=== PATIENT | female | born 1945 | race African-American/Black ===

== ENCOUNTER 2020-01-21 11:44 | Inpatient (IN) | payer MEDICARE, OTHER ==
[~2020-01-21] VITALS: Ht 165.1 cm; Wt 88.0 kg
[~2020-01-21 11:44] MED LIST: ASPI-482 PO; CALC-31 PO; CLON0.2T PO; CLOP75TA PO; ENAL20TA PO; HYDR12.58 PO; METF500T11 PO; METO100T7 PO; MULT-18 PO; SIMV40TA18 PO
[2020-01-21] MEDS ORDERED: ACETAMINOPHEN 500 MG TABLET PO ONE (12:30)
[2020-01-21 12:44] LABS: BASO % 0 % (0-3); EOS % 0 % (0-3); HEMATOCRIT 43.2 % (36.0-47.0); HEMOGLOBIN 14.3 g/dL (12.0-15.5); LYMPH # 1.1 x10^3/uL (1.0-4.8); LYMPH % 12 % (24-48); MEAN CORPUSCULAR HEMOGLOBIN 26 pg (25-35); MEAN CORPUSCULAR HGB CONC 33 g/dL (31-37); MEAN CORPUSCULAR VOLUME 78 fL (79-100); MONO # 0.7 x10^3/uL (0.0-1.1); MONO % 8 % (0-9); NEUT % 80 % (31-73); PLATELET COUNT 139 x10^3/uL (140-400); RED BLOOD COUNT 5.54 x10^6/uL (3.50-5.40); RED CELL DISTRIBUTION WIDTH 14.5 % (11.5-14.5); WHITE BLOOD COUNT 8.8 x10^3/uL (4.0-11.0)
--- NOTE | 2020-01-21 12:57 | RAD ---
CHEST AP ONLY History: Shortness of breath Comparison: None. Findings: Single view of the chest is submitted. There is patchy infiltrate of the right lung base, questionably very minimally of the left lung base. There is no pneumothorax. There is no obvious pleural fluid. Heart size is within normal limits given technique. There is cervical fusion hardware. There is degenerative change of the left shoulder. Impression: 1. There is right base infiltrate, also questionably minimally of the left base Electronically signed by: Calin Khoury MD (01/21/2020 12:53 PM) [id number]
[2020-01-21 13:10] LABS: ALBUMIN 3.4 g/dL (3.4-5.0); ALBUMIN/GLOBULIN RATIO 0.7 (1.0-1.7); CALCIUM 8.8 mg/dL (8.5-10.1); CREATININE 1.5 mg/dL (0.6-1.0); GFR 40.9; TOTAL BILIRUBIN 0.5 mg/dL (0.2-1.0)
[2020-01-21 13:11] LABS: INFLUENZA A PATIENT NEGATIVE (NEGATIVE); INFLUENZA B PATIENT NEGATIVE (NEGATIVE)
[2020-01-21 13:15] LABS: POTASSIUM 2.9 mmol/L (3.5-5.1)
[2020-01-21] MEDS ORDERED: POTASSIUM CHLORIDE 20 MEQ TABLET.ER. PO ONE (13:45)
[2020-01-21] MEDS ORDERED: AZITHRMYCN 500MG IVPB FOR OMNI 250 ML IV ONE (13:45)
[2020-01-21] MEDS ORDERED: cefTRIAXone IV Push 1 GM VIAL. IVP ONE (13:45)
--- NOTE | 2020-01-21 14:01 | PHYS DOC ---
Past Medical History Past Medical History: Diabetes-Type II, High Cholesterol, Hypertension Past Surgical History: Other Additional Past Surgical Histo: "NECK SURERY" Smoking Status: Never Smoker Alcohol Use: None Adult General Chief Complaint Chief Complaint: FEVER HPI HPI Patient is a 74 year old female presenting to the ED with a chief complaint of fever, cough and shortness of breath. Patient's was seen yesterday in the ER and was admitted to the hospital with bilateral pneumonia with hypoxia. is being tested for coronavirus infection. Patient states that her symptoms are not present for the last 1-1/2 weeks but got worse in the last 1 day. Patient denies being an active smoker. Review of Systems Review of Systems Patient does complain of fever, cough and shortness of breath. Patient denies nausea, vomiting, diarrhea, dysuria, chest pain, abdominal pain, headache. All other systems were reviewed and found to be within normal limits, except as documented in this note. Current Medications Current Medications Current Medications Medications (Trade) Dose Ordered Sig/Christiane Start Time Stop Time Status Last Admin Dose Admin Acetaminophen (Tylenol) 1,000 mg 1X ONCE 01/21/20 12:30 01/21/20 12:31 DC 01/21/20 12:28 1,000 MG Azithromycin 250 ml @ 250 mls/hr 1X ONCE 01/21/20 13:45 01/21/20 14:44 Ceftriaxone Sodium (Rocephin) 1 gm 1X ONCE 01/21/20 13:45 01/21/20 13:49 DC Potassium Chloride (Klor-Con) 40 meq 1X ONCE 01/21/20 13:45 01/21/20 13:49 DC Allergies Allergies Allergies Coded Allergies Type Severity Reaction Last Updated Verified No Known Drug Allergies 03/30/14 No Physical Exam Physical Exam Constitutional: Well developed, well nourished, no acute distress, non-toxic appearance. [] HENT: Normocephalic, atraumatic Eyes: EOMI, PERRL Neck: Normal range of motion Cardiovascular:Heart rate regular rhythm Lungs & Thorax: Rhonchi bilaterally Abdomen: Bowel sounds normal, soft, no tenderness Extremities: No tenderness, ROM intact Neurologic: Alert and oriented X 3 Current Patient Data Vital Signs Vital Signs Date Time Temp Pulse Resp B/P (MAP) Pulse Ox O2 Delivery O2 Flow Rate FiO2 01/21/20 12:00 102.0 90 22 192/84 (120) 93 Room Air 102.0 Lab Values Laboratory Tests Test 01/21/20 12:20 01/21/20 12:28 Influenza Type A Antigen Negative (NEGATIVE) Influenza Type B Antigen Negative (NEGATIVE) White Blood Count 8.8 x10^3/uL (4.0-11.0) Red Blood Count 5.54 x10^6/uL (3.50-5.40) H Hemoglobin 14.3 g/dL (12.0-15.5) Hematocrit 43.2 % (36.0-47.0) Mean Corpuscular Volume 78 fL (79-100) L Mean Corpuscular Hemoglobin 26 pg (25-35) Mean Corpuscular Hemoglobin Concent 33 g/dL (31-37) Red Cell Distribution Width 14.5 % (11.5-14.5) Platelet Count 139 x10^3/uL (140-400) L Neutrophils (%) (Auto) 80 % (31-73) H Lymphocytes (%) (Auto) 12 % (24-48) L Monocytes (%) (Auto) 8 % (0-9) Eosinophils (%) (Auto) 0 % (0-3) Basophils (%) (Auto) 0 % (0-3) Neutrophils # (Auto) 7.0 x10^3/uL (1.8-7.7) Lymphocytes # (Auto) 1.1 x10^3/uL (1.0-4.8) Monocytes # (Auto) 0.7 x10^3/uL (0.0-1.1) Eosinophils # (Auto) 0.0 x10^3/uL (0.0-0.7) Basophils # (Auto) 0.0 x10^3/uL (0.0-0.2) Sodium Level 136 mmol/L (136-145) Potassium Level 2.9 mmol/L (3.5-5.1) *L Chloride Level 96 mmol/L (98-107) L Carbon Dioxide Level 32 mmol/L (21-32) Anion Gap 8 (6-14) Blood Urea Nitrogen 24 mg/dL (7-20) H Creatinine 1.5 mg/dL (0.6-1.0) H Estimated GFR (Cockcroft-Gault) 40.9 BUN/Creatinine Ratio 16 (6-20) Glucose Level 97 mg/dL (70-99) Calcium Level 8.8 mg/dL (8.5-10.1) Total Bilirubin 0.5 mg/dL (0.2-1.0) Aspartate Amino Transferase (AST) 128 U/L (15-37) H Alanine Aminotransferase (ALT) 132 U/L (14-59) H Alkaline Phosphatase 72 U/L (46-116) Lactate Dehydrogenase 488 U/L (81-234) H AC-Tdo-S-Type Natriuretic Peptide 174 pg/mL (0-449) Total Protein 8.0 g/dL (6.4-8.2) Albumin 3.4 g/dL (3.4-5.0) Albumin/Globulin Ratio 0.7 (1.0-1.7) L Laboratory Tests 01/21/20 12:28 Laboratory Tests 01/21/20 12:28 EKG EKG [] Radiology/Procedures Radiology/Procedures [] Impressions: Chest x-ray shows opacity in the left lung and in the base of the right lung. Course & Med Decision Making Course & Med Decision Making Pertinent Labs and Imaging studies reviewed. (See chart for details) Order chest x-ray, labs, flu screen, Tylenol Patient's temperature was 102 F. Chest x-ray shows bilateral pneumonia. Potassium is 2.9 and is replaced in the ER. IV antibiotics in the ER started. I have ordered Rocephin and Zithromax. Patient was placed oxygen by nasal cannula currently in the ER. Patient will be tested for coronavirus. Due to patient symptoms of pneumonia with hypoxia, fever and dyspnea Patient will be admitted for further evaluation and treatment. Discussed case with Dr. Boyle who accepts admission. Discussed results and plan of care with patient. Dragon Disclaimer Dragon Disclaimer This electronic medical record was generated, in whole or in part, using a voice recognition dictation system. Departure Departure Impression: Primary Impression: Pneumonia Disposition: ADMITTED INPATIENT Admitting Physician: Gayle Delgado Condition: GOOD Referrals: KD SAHU (PCP) ELMO HERRING DO Jan 21, 2020 14:01
[2020-01-21] MEDS ORDERED: IV DEXTROSE 5% 250 ML BAG. IV PRN (15:00)
[2020-01-21] MEDS ORDERED: DEXTROSE 50% 25 GM / 50ML DISP.SYRIN. IV PRN (15:00)
[2020-01-21] MEDS: INSULIN LISPRO 300 UNITS/3 ML VIAL. SQ SCH (17:00)
[2020-01-21 22:03] VITALS: BP 239/104
[2020-01-21] MEDS: POTASSIUM CL 20MEQ D5-0.9%NACL 1,000 ML IV SCH (22:15)
[2020-01-21] MEDS: hydrALAZINE 20 MG/ML VIAL. IVP PRN (22:23)
[2020-01-21] MEDS: METOPROLOL TART IMMED RELEASE 50 MG TABLET. PO SCH (22:24)
[2020-01-21] MEDS: SIMVASTATIN 40 MG TABLET. PO SCH (22:24)
[2020-01-21] MEDS: ACETAMINOPHEN 325 MG TABLET. PO PRN (22:56)
[2020-01-22] VITALS (7 sets, daily range): BP systolic 139–217; BP diastolic 60–101
[2020-01-22] MEDS: hydrALAZINE 20 MG/ML VIAL. IVP PRN (03:25)
[2020-01-22 04:11] LABS: BASO % 0 % (0-3); EOS % 0 % (0-3); HEMATOCRIT 45.6 % (36.0-47.0); LYMPH # 1.5 x10^3/uL (1.0-4.8); LYMPH % 17 % (24-48); MEAN CORPUSCULAR HEMOGLOBIN 26 pg (25-35); MEAN CORPUSCULAR HGB CONC 33 g/dL (31-37); MEAN CORPUSCULAR VOLUME 79 fL (79-100); MONO # 0.7 x10^3/uL (0.0-1.1); MONO % 7 % (0-9); NEUT # 6.8 x10^3/uL (1.8-7.7); NEUT % 76 % (31-73); PLATELET COUNT 146 x10^3/uL (140-400); RED BLOOD COUNT 5.81 x10^6/uL (3.50-5.40); RED CELL DISTRIBUTION WIDTH 14.5 % (11.5-14.5)
[2020-01-22 04:28] LABS: CALCIUM 9.1 mg/dL (8.5-10.1); CREATININE 1.3 mg/dL (0.6-1.0); GFR 48.2; POTASSIUM 3.3 mmol/L (3.5-5.1)
[2020-01-22] MEDS: ACETAMINOPHEN 325 MG TABLET. PO PRN (05:13)
[2020-01-22] MEDS: INSULIN LISPRO 300 UNITS/3 ML VIAL. SQ SCH ×3 (08:00→17:00)
[2020-01-22] MEDS: hydroCHLOROthiazide 12.5 MG CAPSULE PO SCH (08:38)
[2020-01-22] MEDS: LISINOPRIL 20 MG TABLET PO SCH (08:38)
[2020-01-22] MEDS: METOPROLOL TART IMMED RELEASE 50 MG TABLET. PO SCH ×2 (08:39→20:19)
[2020-01-22] MEDS: ASPIRIN ENTERIC COATED 81 MG TABLET.DR. PO SCH (08:39)
[2020-01-22] MEDS: cloNIDine HCL 0.2 MG TABLET PO SCH (08:39)
[2020-01-22] MEDS: CLOPIDOGREL BISULFATE 75 MG TABLET PO SCH (08:39)
[2020-01-22] MEDS: metFORMIN XR 500 MG TAB.ER.24H PO SCH (08:39)
--- NOTE | 2020-01-22 10:13 | PDOC1 ---
History and Physical Date of Admission Date of Admission DATE: 01/21/20 Identification/Chief Complaint Chief Complaint fever contact with covid -19. Source Source: Patient History of Present Illness History of Present Illness Ms. Jessica davis is a 74-year-old black female patient of Dr. Bruce. Patient was not doing well for couple of days she is running fever and chills. Her was admitted to the hospital couple of days ago and he was diagnosed with Covid -19. He was admitted to [facility] couple of days ago. Patient was not doing well at home she was having gaspar fevers with chills 101 - 102 and she is weak and a chest x-ray shows pneumonia right lower lung and patient was admitted to the hospital. Patient was started on Zithromax and Rocephin. Patient white count was normal oxygen saturation was 92 on room air. ID was consulted pulmonary was consulted. Patient was admitted to isolation room on 6 floor under patient monitor. Past Medical History Cardiovascular: CAD, Hyperlipidemia GI: Gastritis Endocrine: Diabetes Past Surgical History Past Surgical History: Cholecystectomy, Hysterectomy Family History Family History: High Cholestrol, Hypertension Social History Smoke: No Drugs: None Current Problem List Problem List Problems Medical Problems: (1) Pneumonia Status: Acute Current Medications Current Medications Current Medications Acetaminophen (Tylenol) 1,000 mg 1X ONCE PO Last administered on 01/21/20at 12:28; Start 01/21/20 at 12:30; Stop 01/21/20 at 12:31; Status DC Azithromycin 250 ml @ 250 mls/hr 1X ONCE IV Last administered on 01/21/20at 15:15; Start 01/21/20 at 13:45; Stop 01/21/20 at 14:44; Status DC Ceftriaxone Sodium (Rocephin) 1 gm 1X ONCE IVP Last administered on 01/21/20at 15:15; Start 01/21/20 at 13:45; Stop 01/21/20 at 13:49; Status DC Potassium Chloride (Klor-Con) 40 meq 1X ONCE PO Last administered on 01/21/20at 15:14; Start 01/21/20 at 13:45; Stop 01/21/20 at 13:49; Status DC Aspirin (Ecotrin) 81 mg DAILY PO Last administered on 01/22/20at 08:39; Start 01/22/20 at 09:00 Clonidine HCl (Catapres) 0.2 mg DAILY PO Last administered on 01/22/20at 08:39; Start 01/22/20 at 09:00 Clopidogrel Bisulfate (Plavix) 75 mg DAILY PO Last administered on 01/22/20at 08:39; Start 01/22/20 at 09:00 Metformin HCl (Glucophage Xr) 500 mg DAILYWBKFT PO Last administered on 01/22/20at 08:39; Start 01/22/20 at 08:00 Simvastatin (Zocor) 40 mg QHS PO Last administered on 01/21/20at 22:24; Start 01/21/20 at 21:00 Lisinopril (Prinivil) 40 mg DAILY PO Last administered on 01/22/20 08:38; Start 01/22/20 at 09:00 Hydrochlorothiazide (Microzide) 12.5 mg DAILY PO Last administered on 01/22/20at 08:38; Start 01/22/20 at 09:00 Metoprolol Tartrate (Lopressor) 100 mg BID PO Last administered on 01/22/20at 08:39; Start 01/21/20 at 21:00 Insulin Human Lispro (HumaLOG) 0-5 UNITS TIDWMEALS SQ ; Start 01/21/20 at 17:00 Dextrose (Dextrose 50%-Water Syringe) 12.5 gm PRN Q15MIN PRN IV SEE COMMENTS; Start 01/21/20 at 15:00 Dextrose (Iv Dextrose 5%) 250 ml PRN Q15MIN PRN IV SEE COMMENTS; Start 01/21/20 at 15:00 Azithromycin 250 mg/Sodium Chloride 250 ml @ 250 mls/hr Q24H IV ; Start 01/22/20 at 14:00 Ceftriaxone Sodium (Rocephin) 1 gm Q24H IVP ; Start 01/22/20 at 12:00 Hydralazine HCl (Apresoline Inj) 10 mg PRN Q4HRS PRN IVP ELEVATED BP, SEE COMMENTS Last administered on 01/22/20at 03:25; Start 01/21/20 at 22:15 Potassium Chloride/Dextrose/ Sod Cl 1,000 ml @ 75 mls/hr [id number] IV Last administered on 01/21/20at 22:15; Start 01/21/20 at 22:15 Acetaminophen (Tylenol) 650 mg PRN Q6HRS PRN PO FEVER > 101.5'F Last administered on 01/22/20at 05:13; Start 01/21/20 at 22:45 Enoxaparin Sodium (Lovenox 40mg Syringe) 40 mg Q24H SQ ; Start 01/22/20 at 14:00; Status UNV Potassium Chloride (Klor-Con) 40 meq 1X ONCE PO ; Start 01/22/20 at 10:00; Stop 01/22/20 at 10:01; Status UNV Active Scripts Active Reported Hydrochlorothiazide Tablet (Hydrochlorothiazide) 12.5 Mg Tablet 12.5 Mg PO DAILY Clopidogrel (Clopidogrel Bisulfate) 75 Mg Tablet 75 Mg PO DAILY Enalapril Maleate 20 Mg Tablet 20 Mg PO DAILY Metoprolol Tartrate 100 Mg Tablet 100 Mg PO BID Simvastatin 40 Mg Tablet 40 Mg PO DAILY Clonidine Hcl 0.2 Mg Tablet 0.2 Mg PO DAILY Calcium 500 + D Tablet (Calcium Carbonate/Vitamin D3) 1 Each Tablet 1 Each PO Daily Vitamin (Multivitamin) 1 Each Tablet 1 Each PO Aspir 81 (Aspirin) 81 Mg Tablet.dr 81 Mg PO Metformin Hcl Er (Metformin Hcl) 500 Mg Tab.er.24h 500 Mg PO DAILYWBKFT Allergies Allergies: Coded Allergies: No Known Drug Allergies (Unverified , 03/30/14) ROS General: YES: Chills, Other (Fever) HEENT: YES: Heacaches Respiratory: YES: Cough, SOB with excertion Physical Exam Physical Exam Patient is in isolation room on 6 floor General: Oriented X3, mild distress HEENT: Atraumatic, PERRLA Lungs: Other (Decreased breath breath sounds on right base, no wheezing) Heart: S1S2 Cardiovascular: S1, S2 Abdomen: Soft Rectal Exam: not examined Extremities: No edema Neuro: Normal speech Psych/Mental Status: Mental status NL Vitals Vitals Vital Signs Date Time Temp Pulse Resp B/P (MAP) Pulse Ox O2 Delivery O2 Flow Rate FiO2 01/22/20 08:39 90 01/22/20 08:30 99.6 20 167/71 (103) 95 Nasal Cannula 2.0 99.6 Labs Labs Laboratory Tests Test 01/21/20 12:20 01/21/20 12:28 01/22/20 03:30 Influenza Type A Antigen Negative (NEGATIVE) Influenza Type B Antigen Negative (NEGATIVE) White Blood Count 8.8 x10^3/uL (4.0-11.0) 9.0 x10^3/uL (4.0-11.0) Red Blood Count 5.54 x10^6/uL (3.50-5.40) 5.81 x10^6/uL (3.50-5.40) Hemoglobin 14.3 g/dL (12.0-15.5) 15.0 g/dL (12.0-15.5) Hematocrit 43.2 % (36.0-47.0) 45.6 % (36.0-47.0) Mean Corpuscular Volume 78 fL (79-100) 79 fL (79-100) Mean Corpuscular Hemoglobin 26 pg (25-35) 26 pg (25-35) Mean Corpuscular Hemoglobin Concent 33 g/dL (31-37) 33 g/dL (31-37) Red Cell Distribution Width 14.5 % (11.5-14.5) 14.5 % (11.5-14.5) Platelet Count 139 x10^3/uL (140-400) 146 x10^3/uL (140-400) Neutrophils (%) (Auto) 80 % (31-73) 76 % (31-73) Lymphocytes (%) (Auto) 12 % (24-48) 17 % (24-48) Monocytes (%) (Auto) 8 % (0-9) 7 % (0-9) Eosinophils (%) (Auto) 0 % (0-3) 0 % (0-3) Basophils (%) (Auto) 0 % (0-3) 0 % (0-3) Neutrophils # (Auto) 7.0 x10^3/uL (1.8-7.7) 6.8 x10^3/uL (1.8-7.7) Lymphocytes # (Auto) 1.1 x10^3/uL (1.0-4.8) 1.5 x10^3/uL (1.0-4.8) Monocytes # (Auto) 0.7 x10^3/uL (0.0-1.1) 0.7 x10^3/uL (0.0-1.1) Eosinophils # (Auto) 0.0 x10^3/uL (0.0-0.7) 0.0 x10^3/uL (0.0-0.7) Basophils # (Auto) 0.0 x10^3/uL (0.0-0.2) 0.0 x10^3/uL (0.0-0.2) Sodium Level 136 mmol/L (136-145) 140 mmol/L (136-145) Potassium Level 2.9 mmol/L (3.5-5.1) 3.3 mmol/L (3.5-5.1) Chloride Level 96 mmol/L (98-107) 99 mmol/L (98-107) Carbon Dioxide Level 32 mmol/L (21-32) 33 mmol/L (21-32) Anion Gap 8 (6-14) 8 (6-14) Blood Urea Nitrogen 24 mg/dL (7-20) 21 mg/dL (7-20) Creatinine 1.5 mg/dL (0.6-1.0) 1.3 mg/dL (0.6-1.0) Estimated GFR (Cockcroft-Gault) 40.9 48.2 BUN/Creatinine Ratio 16 (6-20) Glucose Level 97 mg/dL (70-99) 93 mg/dL (70-99) Calcium Level 8.8 mg/dL (8.5-10.1) 9.1 mg/dL (8.5-10.1) Total Bilirubin 0.5 mg/dL (0.2-1.0) Aspartate Amino Transf (AST/SGOT) 128 U/L (15-37) Alanine Aminotransferase (ALT/SGPT) 132 U/L (14-59) Alkaline Phosphatase 72 U/L (46-116) Lactate Dehydrogenase 488 U/L (81-234) KZ-Tnw-P-Type Natriuretic Peptide 174 pg/mL (0-449) Total Protein 8.0 g/dL (6.4-8.2) Albumin 3.4 g/dL (3.4-5.0) Albumin/Globulin Ratio 0.7 (1.0-1.7) Laboratory Tests Test 01/21/20 12:20 01/21/20 12:28 01/22/20 03:30 Influenza Type A Antigen Negative (NEGATIVE) Influenza Type B Antigen Negative (NEGATIVE) White Blood Count 8.8 x10^3/uL (4.0-11.0) 9.0 x10^3/uL (4.0-11.0) Red Blood Count 5.54 x10^6/uL (3.50-5.40) 5.81 x10^6/uL (3.50-5.40) Hemoglobin 14.3 g/dL (12.0-15.5) 15.0 g/dL (12.0-15.5) Hematocrit 43.2 % (36.0-47.0) 45.6 % (36.0-47.0) Mean Corpuscular Volume 78 fL (79-100) 79 fL (79-100) Mean Corpuscular Hemoglobin 26 pg (25-35) 26 pg (25-35) Mean Corpuscular Hemoglobin Concent 33 g/dL (31-37) 33 g/dL (31-37) Red Cell Distribution Width 14.5 % (11.5-14.5) 14.5 % (11.5-14.5) Platelet Count 139 x10^3/uL (140-400) 146 x10^3/uL (140-400) Neutrophils (%) (Auto) 80 % (31-73) 76 % (31-73) Lymphocytes (%) (Auto) 12 % (24-48) 17 % (24-48) Monocytes (%) (Auto) 8 % (0-9) 7 % (0-9) Eosinophils (%) (Auto) 0 % (0-3) 0 % (0-3) Basophils (%) (Auto) 0 % (0-3) 0 % (0-3) Neutrophils # (Auto) 7.0 x10^3/uL (1.8-7.7) 6.8 x10^3/uL (1.8-7.7) Lymphocytes # (Auto) 1.1 x10^3/uL (1.0-4.8) 1.5 x10^3/uL (1.0-4.8) Monocytes # (Auto) 0.7 x10^3/uL (0.0-1.1) 0.7 x10^3/uL (0.0-1.1) Eosinophils # (Auto) 0.0 x10^3/uL (0.0-0.7) 0.0 x10^3/uL (0.0-0.7) Basophils # (Auto) 0.0 x10^3/uL (0.0-0.2) 0.0 x10^3/uL (0.0-0.2) Sodium Level 136 mmol/L (136-145) 140 mmol/L (136-145) Potassium Level 2.9 mmol/L (3.5-5.1) 3.3 mmol/L (3.5-5.1) Chloride Level 96 mmol/L (98-107) 99 mmol/L (98-107) Carbon Dioxide Level 32 mmol/L (21-32) 33 mmol/L (21-32) Anion Gap 8 (6-14) 8 (6-14) Blood Urea Nitrogen 24 mg/dL (7-20) 21 mg/dL (7-20) Creatinine 1.5 mg/dL (0.6-1.0) 1.3 mg/dL (0.6-1.0) Estimated GFR (Cockcroft-Gault) 40.9 48.2 BUN/Creatinine Ratio 16 (6-20) Glucose Level 97 mg/dL (70-99) 93 mg/dL (70-99) Calcium Level 8.8 mg/dL (8.5-10.1) 9.1 mg/dL (8.5-10.1) Total Bilirubin 0.5 mg/dL (0.2-1.0) Aspartate Amino Transf (AST/SGOT) 128 U/L (15-37) Alanine Aminotransferase (ALT/SGPT) 132 U/L (14-59) Alkaline Phosphatase 72 U/L (46-116) Lactate Dehydrogenase 488 U/L (81-234) IT-Npd-D-Type Natriuretic Peptide 174 pg/mL (0-449) Total Protein 8.0 g/dL (6.4-8.2) Albumin 3.4 g/dL (3.4-5.0) Albumin/Globulin Ratio 0.7 (1.0-1.7) Images Images Chest x-ray shows right lower lung infiltration VTE Prophylaxis Ordered VTE Prophylaxis Devices: Yes VTE Pharmacological Prophylaxi: Yes Assessment/Plan Assessment/Plan Impression: 1. Fever with chills possible covied -19, patient has been was admitted to the hospital couple of days ago and was positive for corvid -19. 2. Right lower lobe infiltration possible pneumonia. 3. Hypokalemia. 4. Mild renal sufficiency. 5. History of coronary disease stable. 6. Hypertension accelerated. 7. Mild elevated liver function test. 8. Diabetes 9. Hyperlipidemia Plan: Patient was admitted to the hospital isolation room. Patient was started on broad-spectrum antibiotic Zithromax and Rocephin. No swab was taken for viral infection ,influenza test was negative Blood cultures was done. ID was consulted Pulmonary was consulted Replace potassium IV fluids for hydration DVT prevention Hemodynamically unstable?: No Respiratory Distress?: Yes Justification for admission: COVID -19, pneumonia, CAd ,DM Serious Diagnosis?: Yes Is patient at high risk?: Yes ISABELA LOPEZ MD Jan 22, 2020 10:13
[2020-01-22] MEDS ORDERED: POTASSIUM CHLORIDE 20 MEQ TABLET.ER. PO ONE (10:30)
--- NOTE | 2020-01-22 11:10 | PDOC ---
Infectious Disease Note Vital Sign Vital Signs Vital Signs Date Time Temp Pulse Resp B/P (MAP) Pulse Ox O2 Delivery O2 Flow Rate FiO2 01/22/20 08:39 90 01/22/20 08:30 99.6 20 167/71 (103) 95 Nasal Cannula 2.0 99.6 Labs Lab Laboratory Tests Test 01/21/20 12:20 01/21/20 12:28 01/22/20 03:30 Influenza Type A Antigen Negative (NEGATIVE) Influenza Type B Antigen Negative (NEGATIVE) White Blood Count 8.8 x10^3/uL (4.0-11.0) 9.0 x10^3/uL (4.0-11.0) Red Blood Count 5.54 x10^6/uL (3.50-5.40) 5.81 x10^6/uL (3.50-5.40) Hemoglobin 14.3 g/dL (12.0-15.5) 15.0 g/dL (12.0-15.5) Hematocrit 43.2 % (36.0-47.0) 45.6 % (36.0-47.0) Mean Corpuscular Volume 78 fL (79-100) 79 fL (79-100) Mean Corpuscular Hemoglobin 26 pg (25-35) 26 pg (25-35) Mean Corpuscular Hemoglobin Concent 33 g/dL (31-37) 33 g/dL (31-37) Red Cell Distribution Width 14.5 % (11.5-14.5) 14.5 % (11.5-14.5) Platelet Count 139 x10^3/uL (140-400) 146 x10^3/uL (140-400) Neutrophils (%) (Auto) 80 % (31-73) 76 % (31-73) Lymphocytes (%) (Auto) 12 % (24-48) 17 % (24-48) Monocytes (%) (Auto) 8 % (0-9) 7 % (0-9) Eosinophils (%) (Auto) 0 % (0-3) 0 % (0-3) Basophils (%) (Auto) 0 % (0-3) 0 % (0-3) Neutrophils # (Auto) 7.0 x10^3/uL (1.8-7.7) 6.8 x10^3/uL (1.8-7.7) Lymphocytes # (Auto) 1.1 x10^3/uL (1.0-4.8) 1.5 x10^3/uL (1.0-4.8) Monocytes # (Auto) 0.7 x10^3/uL (0.0-1.1) 0.7 x10^3/uL (0.0-1.1) Eosinophils # (Auto) 0.0 x10^3/uL (0.0-0.7) 0.0 x10^3/uL (0.0-0.7) Basophils # (Auto) 0.0 x10^3/uL (0.0-0.2) 0.0 x10^3/uL (0.0-0.2) Sodium Level 136 mmol/L (136-145) 140 mmol/L (136-145) Potassium Level 2.9 mmol/L (3.5-5.1) 3.3 mmol/L (3.5-5.1) Chloride Level 96 mmol/L (98-107) 99 mmol/L (98-107) Carbon Dioxide Level 32 mmol/L (21-32) 33 mmol/L (21-32) Anion Gap 8 (6-14) 8 (6-14) Blood Urea Nitrogen 24 mg/dL (7-20) 21 mg/dL (7-20) Creatinine 1.5 mg/dL (0.6-1.0) 1.3 mg/dL (0.6-1.0) Estimated GFR (Cockcroft-Gault) 40.9 48.2 BUN/Creatinine Ratio 16 (6-20) Glucose Level 97 mg/dL (70-99) 93 mg/dL (70-99) Calcium Level 8.8 mg/dL (8.5-10.1) 9.1 mg/dL (8.5-10.1) Total Bilirubin 0.5 mg/dL (0.2-1.0) Aspartate Amino Transf (AST/SGOT) 128 U/L (15-37) Alanine Aminotransferase (ALT/SGPT) 132 U/L (14-59) Alkaline Phosphatase 72 U/L (46-116) Lactate Dehydrogenase 488 U/L (81-234) FV-Dyb-E-Type Natriuretic Peptide 174 pg/mL (0-449) Total Protein 8.0 g/dL (6.4-8.2) Albumin 3.4 g/dL (3.4-5.0) Albumin/Globulin Ratio 0.7 (1.0-1.7) Objective Assessment pt seen, consult dictated Plan Plan of Care // KEVIN GAMBOA MD Jan 22, 2020 11:10
[2020-01-22] MEDS: HYDROXYCHLOROQUINE 200 MG TABLET PO SCH ×2 (12:00→19:45)
--- NOTE | 2020-01-22 12:08 | CONS ---
DATE OF CONSULTATION: 01/22/2020 REQUESTING PHYSICIAN: Gayle Delgado MD REASON FOR CONSULTATION: Rule out COVID-19. HISTORY OF PRESENT ILLNESS: This is a 74-year-old -[place] female, who started having cough, shortness of breath and fever about a week ago. In fact, her was admitted in the hospital a couple of days before her with a diagnosis of COVID-19. The patient was noted to have fever. The patient is noted to have pulmonary infiltrate and lymphopenia. The patient has been waiting for COVID-19. The patient has been started on azithromycin and Rocephin and consult has been requested. The patient denies any nausea, vomiting, or diarrhea. Denies any headache or visual symptoms. Denies any chest pain, abdominal pain, or urinary symptoms. PAST MEDICAL HISTORY: Positive for coronary artery disease, hyperlipidemia, history of gastritis, has had cholecystectomy, hysterectomy, also has diabetes and hypertension. SOCIAL HISTORY: Negative for smoking, alcohol, or illicit drug use. ALLERGIES: No known drug allergies. CURRENT MEDICATIONS: Reviewed. REVIEW OF SYSTEMS: As per HPI, all other systems reviewed and are negative. PHYSICAL EXAMINATION: GENERAL: Alert and oriented female, not in distress. VITAL SIGNS: Stable with T-max 101.9, pulse 80, respirations 20, blood pressure 139/64. HEENT: NAD. NECK: Supple, no JVP, no lymphadenopathy. LUNGS: Clear. HEART: S1, S2 regular. ABDOMEN: Benign. EXTREMITIES: No edema or cyanosis. SKIN: Unremarkable. NEUROLOGIC: The patient is alert, awake and appropriate. No focal neurologic deficit. LABORATORY DATA: White count is 9000 with lymphopenia. BUN and creatinine is 21 and 1.3. Influenza screen is negative. Chest x-ray showed right base infiltrate and minimal on the left base. IMPRESSION: 1. Community-acquired pneumonia, although COVID-19 is possible. 2. Rule out COVID-19 with cough, fever, shortness of breath. 3. Coronary artery disease. 4. Diabetes. 5. Hypertension. RECOMMENDATIONS: Recommend to continue Rocephin and azithromycin. Supportive care and we will continue to follow the cultures as well as COVID-19 testing. Thank you very much, Dr. Delgado, for giving me the opportunity to participate in this patient's care. KEVIN GAMBOA MD DR: GEORGE/romeo JOB#: [id number] / [id number]
--- NOTE | 2020-01-22 12:41 | CONS ---
DATE OF CONSULTATION: PULMONARY CONSULTATION ATTENDING PHYSICIAN: Gayle Delgado MD REASON FOR CONSULTATION: COVID pneumonia. HISTORY OF PRESENT ILLNESS: The patient is a 74-year-old who came into the hospital with some cough and shortness of breath and a fever. The patient denies any headache. No nausea, vomiting, or diarrhea. She was found to have right lower lobe infiltrate based on the chest x-ray. The patient currently requiring oxygen at 2 liters with saturation of 96%. She had a fever of 101.9. PAST MEDICAL HISTORY: Significant for coronary artery disease, hyperlipidemia, gastritis. PAST SURGICAL HISTORY: Cholecystectomy, hysterectomy, surgeries as discussed above. SOCIAL HISTORY: Nonsmoker, nonalcoholic. ALLERGIES: None. MEDICATIONS: Reviewed as listed in the MRAD including Plaquenil, azithromycin and Rocephin. REVIEW OF SYSTEMS: Ten-point system obtained. Pertinent positives discussed in my history of present illness, otherwise noncontributory. All systems that were negative were reviewed as well. FAMILY HISTORY: Noncontributory to lungs. PHYSICAL EXAMINATION: VITAL SIGNS: Reviewed. T-max of 101.9. Blood pressure stable, pulse ox 96% on 2 liters. NECK: Supple. LUNGS: With diminished breath sounds. CARDIOVASCULAR: Regular rate and rhythm. ABDOMEN: Soft. EXTREMITIES: With no pitting edema. LABORATORY DATA: Reviewed. Influenza screen negative. BUN 21, creatinine 1.3. White cell count 9.0, hemoglobin 15.0 and platelets are 146. IMPRESSION: 1. Fever with right lower lobe pneumonia, highly suspected COVID-19 pneumonia. 2. Abnormal chest x-ray with right lower lobe pneumonia, highly suspicious for COVID pneumonia. 3. No significant tobacco history. RECOMMENDATIONS: 1. Continue with present oxygen to keep saturation 92 and above. 2. Continue broad-spectrum antibiotics including azithromycin and also addition of Plaquenil. 3. We will follow the clinical course. 4. We will monitor closely for oxygen requirement. 5. Follow Infectious Disease recommendation. 6. Discussed with RN. CASH TREJO MD DR: FRANCISCO/romeo JOB#: [id number] / [id number]
[2020-01-22] MEDS: cefTRIAXone IV Push 1 GM VIAL. IVP SCH (12:51)
--- NOTE | 2020-01-22 13:56 | EKG ---
[facility] [address] [place] [address] Test Date: 2020-01-22 Test Time: 13:51:35 Pat Name: ARLEN HOLMAN Department: Room: [facility] Gender: F [employer]: AMOR : 1945 Requested By: ISABELA LOPEZ Order Number: [id number] Reading MD: Lloyd Osborn MD Measurements Intervals [place] Rate: 86 P: 40 WV: 150 QRS: -34 QRSD: 80 T: -28 QT: 376 QTc: 453 Interpretive Statements SINUS RHYTHM ABNORMAL LEFT AXIS DEVIATION LEFT ANTERIOR FASCICULAR BLOCK QRS(T) CONTOUR ABNORMALITY CONSISTENT WITH ANTEROSEPTAL INFARCT AGE UNDETERMINED T ABNORMALITY IN INFEROLATERAL LEADS ABNORMAL ECG Electronically Signed On 01-22-2020 14:40:01 CDT by Lloyd Osborn MD
[2020-01-22] MEDS: POTASSIUM CL 20MEQ D5-0.9%NACL 1,000 ML IV SCH (16:37)
[2020-01-22] MEDS: AZITHROMYCIN 250 MG in IV NORMAL SALINE 250ML 250 ML IV SCH (16:38)
[2020-01-22] MEDS: ENOXAPARIN 40 MG/0.4 ML SYRINGE. SQ SCH (16:38)
[2020-01-22] MEDS: LACTOBACILLUS RHAMNOSUS GG 1 CAPSULE. PO SCH (19:36)
[2020-01-22] MEDS: SIMVASTATIN 40 MG TABLET. PO SCH (19:45)
[2020-01-23] VITALS (7 sets, daily range): BP systolic 116–228; BP diastolic 58–96
[2020-01-23] MEDS: POTASSIUM CL 20MEQ D5-0.9%NACL 1,000 ML IV SCH ×3 (00:54→23:37)
[2020-01-23] MEDS: hydrALAZINE 20 MG/ML VIAL. IVP PRN (07:54)
[2020-01-23] MEDS: INSULIN LISPRO 300 UNITS/3 ML VIAL. SQ SCH ×3 (08:00→16:42)
[2020-01-23 08:32] LABS: ALBUMIN 2.9 g/dL (3.4-5.0); ALBUMIN/GLOBULIN RATIO 0.6 (1.0-1.7); CALCIUM 8.7 mg/dL (8.5-10.1); CREATININE 1.2 mg/dL (0.6-1.0); GFR 52.9; POTASSIUM 3.4 mmol/L (3.5-5.1); TOTAL BILIRUBIN 0.5 mg/dL (0.2-1.0); TOTAL PROTEIN 7.4 g/dL (6.4-8.2)
[2020-01-23] MEDS ORDERED: HYDROXYCHLOROQUINE 200 MG TABLET PO SCH (09:00)
[2020-01-23] MEDS: CLOPIDOGREL BISULFATE 75 MG TABLET PO SCH (09:16)
[2020-01-23] MEDS: LACTOBACILLUS RHAMNOSUS GG 1 CAPSULE. PO SCH ×2 (09:18→20:45)
[2020-01-23] MEDS: HYDROXYCHLOROQUINE (PROGRAM) 200 MG TABLET PO SCH ×2 (09:18→20:45)
[2020-01-23] MEDS: cloNIDine HCL 0.2 MG TABLET PO SCH (09:19)
[2020-01-23] MEDS: ASPIRIN ENTERIC COATED 81 MG TABLET.DR. PO SCH (09:19)
[2020-01-23] MEDS: LISINOPRIL 20 MG TABLET PO SCH (09:20)
[2020-01-23] MEDS: hydroCHLOROthiazide 12.5 MG CAPSULE PO SCH (09:21)
[2020-01-23] MEDS: METOPROLOL TART IMMED RELEASE 50 MG TABLET. PO SCH ×2 (09:21→20:45)
[2020-01-23] MEDS: metFORMIN XR 500 MG TAB.ER.24H PO SCH (09:36)
[2020-01-23] MEDS: ACETAMINOPHEN 325 MG TABLET. PO PRN ×3 (09:37→23:36)
--- NOTE | 2020-01-23 09:39 | PDOC ---
PULMONARY PROGRESS NOTES Subjective no increase soa on canula Vitals Vital Signs Date Time Temp Pulse Resp B/P (MAP) Pulse Ox O2 Delivery O2 Flow Rate FiO2 01/23/20 09:21 110 189/79 01/23/20 07:00 102.8 22 96 Nasal Cannula 2.0 102.8 Comments visual exam done via tele med no soa, on canula no rash no leg edema General: Alert, No acute distress Labs Laboratory Tests Test 01/21/20 12:20 01/21/20 12:28 01/22/20 03:30 01/22/20 17:29 Influenza Type A Antigen Negative (NEGATIVE) Influenza Type B Antigen Negative (NEGATIVE) White Blood Count 8.8 x10^3/uL (4.0-11.0) 9.0 x10^3/uL (4.0-11.0) Red Blood Count 5.54 x10^6/uL (3.50-5.40) 5.81 x10^6/uL (3.50-5.40) Hemoglobin 14.3 g/dL (12.0-15.5) 15.0 g/dL (12.0-15.5) Hematocrit 43.2 % (36.0-47.0) 45.6 % (36.0-47.0) Mean Corpuscular Volume 78 fL (79-100) 79 fL (79-100) Mean Corpuscular Hemoglobin 26 pg (25-35) 26 pg (25-35) Mean Corpuscular Hemoglobin Concent 33 g/dL (31-37) 33 g/dL (31-37) Red Cell Distribution Width 14.5 % (11.5-14.5) 14.5 % (11.5-14.5) Platelet Count 139 x10^3/uL (140-400) 146 x10^3/uL (140-400) Neutrophils (%) (Auto) 80 % (31-73) 76 % (31-73) Lymphocytes (%) (Auto) 12 % (24-48) 17 % (24-48) Monocytes (%) (Auto) 8 % (0-9) 7 % (0-9) Eosinophils (%) (Auto) 0 % (0-3) 0 % (0-3) Basophils (%) (Auto) 0 % (0-3) 0 % (0-3) Neutrophils # (Auto) 7.0 x10^3/uL (1.8-7.7) 6.8 x10^3/uL (1.8-7.7) Lymphocytes # (Auto) 1.1 x10^3/uL (1.0-4.8) 1.5 x10^3/uL (1.0-4.8) Monocytes # (Auto) 0.7 x10^3/uL (0.0-1.1) 0.7 x10^3/uL (0.0-1.1) Eosinophils # (Auto) 0.0 x10^3/uL (0.0-0.7) 0.0 x10^3/uL (0.0-0.7) Basophils # (Auto) 0.0 x10^3/uL (0.0-0.2) 0.0 x10^3/uL (0.0-0.2) Sodium Level 136 mmol/L (136-145) 140 mmol/L (136-145) Potassium Level 2.9 mmol/L (3.5-5.1) 3.3 mmol/L (3.5-5.1) Chloride Level 96 mmol/L (98-107) 99 mmol/L (98-107) Carbon Dioxide Level 32 mmol/L (21-32) 33 mmol/L (21-32) Anion Gap 8 (6-14) 8 (6-14) Blood Urea Nitrogen 24 mg/dL (7-20) 21 mg/dL (7-20) Creatinine 1.5 mg/dL (0.6-1.0) 1.3 mg/dL (0.6-1.0) Estimated GFR (Cockcroft-Gault) 40.9 48.2 BUN/Creatinine Ratio 16 (6-20) Glucose Level 97 mg/dL (70-99) 93 mg/dL (70-99) Calcium Level 8.8 mg/dL (8.5-10.1) 9.1 mg/dL (8.5-10.1) Total Bilirubin 0.5 mg/dL (0.2-1.0) Aspartate Amino Transf (AST/SGOT) 128 U/L (15-37) Alanine Aminotransferase (ALT/SGPT) 132 U/L (14-59) Alkaline Phosphatase 72 U/L (46-116) Lactate Dehydrogenase 488 U/L (81-234) [id number]-Type Natriuretic Peptide 174 pg/mL (0-449) Total Protein 8.0 g/dL (6.4-8.2) Albumin 3.4 g/dL (3.4-5.0) Albumin/Globulin Ratio 0.7 (1.0-1.7) Glucose (Fingerstick) 110 mg/dL (70-99) Test 01/23/20 07:00 Sodium Level 141 mmol/L (136-145) Potassium Level 3.4 mmol/L (3.5-5.1) Chloride Level 104 mmol/L (98-107) Carbon Dioxide Level 31 mmol/L (21-32) Anion Gap 6 (6-14) Blood Urea Nitrogen 16 mg/dL (7-20) Creatinine 1.2 mg/dL (0.6-1.0) Estimated GFR (Cockcroft-Gault) 52.9 BUN/Creatinine Ratio 13 (6-20) Glucose Level 136 mg/dL (70-99) Calcium Level 8.7 mg/dL (8.5-10.1) Total Bilirubin 0.5 mg/dL (0.2-1.0) Aspartate Amino Transf (AST/SGOT) 375 U/L (15-37) Alanine Aminotransferase (ALT/SGPT) 330 U/L (14-59) Alkaline Phosphatase 65 U/L (46-116) Total Protein 7.4 g/dL (6.4-8.2) Albumin 2.9 g/dL (3.4-5.0) Albumin/Globulin Ratio 0.6 (1.0-1.7) Laboratory Tests Test 01/22/20 17:29 01/23/20 07:00 Glucose (Fingerstick) 110 mg/dL (70-99) Sodium Level 141 mmol/L (136-145) Potassium Level 3.4 mmol/L (3.5-5.1) Chloride Level 104 mmol/L (98-107) Carbon Dioxide Level 31 mmol/L (21-32) Anion Gap 6 (6-14) Blood Urea Nitrogen 16 mg/dL (7-20) Creatinine 1.2 mg/dL (0.6-1.0) Estimated GFR (Cockcroft-Gault) 52.9 BUN/Creatinine Ratio 13 (6-20) Glucose Level 136 mg/dL (70-99) Calcium Level 8.7 mg/dL (8.5-10.1) Total Bilirubin 0.5 mg/dL (0.2-1.0) Aspartate Amino Transf (AST/SGOT) 375 U/L (15-37) Alanine Aminotransferase (ALT/SGPT) 330 U/L (14-59) Alkaline Phosphatase 65 U/L (46-116) Total Protein 7.4 g/dL (6.4-8.2) Albumin 2.9 g/dL (3.4-5.0) Albumin/Globulin Ratio 0.6 (1.0-1.7) Medications Active Scripts Medications Dose Route/Sig Max Daily Dose Days Date Category Hydrochlorothiazide Tablet (Hydrochlorothiazide) 12.5 Mg Tablet 12.5 Mg PO DAILY 03/30/14 Reported Clopidogrel (Clopidogrel Bisulfate) 75 Mg Tablet 75 Mg PO DAILY 03/30/14 Reported Enalapril Maleate 20 Mg Tablet 20 Mg PO DAILY 03/30/14 Reported Metoprolol Tartrate 100 Mg Tablet 100 Mg PO BID 03/30/14 Reported Simvastatin 40 Mg Tablet 40 Mg PO DAILY 03/30/14 Reported Clonidine Hcl 0.2 Mg Tablet 0.2 Mg PO DAILY 03/30/14 Reported Calcium 500 + D Tablet (Calcium Carbonate/Vitamin D3) 1 Each Tablet 1 Each PO 03/30/14 Reported Daily Vitamin (Multivitamin) 1 Each Tablet 1 Each PO 03/30/14 Reported Aspir 81 (Aspirin) 81 Mg Tablet.dr 81 Mg PO 03/30/14 Reported Metformin Hcl Er (Metformin Hcl) 500 Mg Tab.er.24h 500 Mg PO DAILYWBKFT 03/30/14 Reported Impression . 1. Fever with right lower lobe pneumonia, highly suspected COVID-19 pneumonia. 2. Abnormal chest x-ray with right lower lobe pneumonia, highly suspicious for COVID pneumonia. 3. No significant tobacco history. Plan . RECOMMENDATIONS: 1. Continue with present oxygen to keep saturation 92 and above. 2. Continue broad-spectrum antibiotics including azithromycin and also addition of Plaquenil. 3. We will follow the clinical course. 4. We will monitor closely for oxygen requirement. 5. Follow Infectious Disease recommendation. 6. Discussed with ISI. CASH TREJO MD Jan 23, 2020 09:39
--- NOTE | 2020-01-23 10:20 | PDOC ---
PROGRESS NOTES Subjective Subjective fevers 102 Objective Objective Vital Signs Date Time Temp Pulse Resp B/P (MAP) Pulse Ox O2 Delivery O2 Flow Rate FiO2 01/23/20 09:33 101.7 110 22 189/79 (115) 96 Nasal Cannula 2.0 101.7 Intake and Output 01/23/20 07:00 Intake Total 240 ml Output Total 300 ml Balance -60 ml Intake Oral 240 ml Output Urine Total 300 ml # Voids 1 Physical Exam Abdomen: Soft Heart: Regular rate, Normal S1, Normal S2 Extremities: No clubbing, No edema General: Oriented X3, mild distress HEENT: Atraumatic, PERRLA Lungs: Other (Decreased breath breath sounds on right base, no wheezing) MUSCULOSKELETAL: No deformity Neck: Supple Neuro: Normal speech Psych/Mental Status: Mental status NL Skin: No breakdown Diagnosis Problem List Problems Medical Problems: (1) Pneumonia Status: Acute Assessment Assessment Problems Medical Problems: (1) Pneumonia Status: Acute Assessment/Plan Impression:Suspect COVID-19 infection, fevers with pneumonia 1. Fever with chills possible covied -19, patient has been was admitted to the hospital couple of days ago and was positive for corvid -19. 2. Right lower lobe infiltration possible pneumonia. 3. Hypokalemia. 4. Mild renal sufficiency. 5. History of coronary disease stable. 6. Hypertension accelerated. 7. Mild elevated liver function test. 8. Diabetes 9. Hyperlipidemia 10 .ede LFT Plan:GI consult for ede LFT 300 range. waiting for confirmatory test.PCR. Patient was admitted to the hospital isolation room. Patient was started on broad-spectrum antibiotic Zithromax and Rocephin+Plaquinil. No swab was taken for viral infection ,influenza test was negative Blood cultures was done.so far neg ID was consulted Pulmonary was consulted Replaced potassium IV fluids for hydration, kidney function normal DVT prevention Plan Plan of Care Problems Medical Problems: (1) Pneumonia Status: Acute Comment Review of Relevant I have reviewed the following items tim (where applicable) has been applied. Labs Laboratory Tests Test 01/22/20 17:29 01/23/20 07:00 Glucose (Fingerstick) 110 mg/dL (70-99) Sodium Level 141 mmol/L (136-145) Potassium Level 3.4 mmol/L (3.5-5.1) Chloride Level 104 mmol/L (98-107) Carbon Dioxide Level 31 mmol/L (21-32) Anion Gap 6 (6-14) Blood Urea Nitrogen 16 mg/dL (7-20) Creatinine 1.2 mg/dL (0.6-1.0) Estimated GFR (Cockcroft-Gault) 52.9 BUN/Creatinine Ratio 13 (6-20) Glucose Level 136 mg/dL (70-99) Calcium Level 8.7 mg/dL (8.5-10.1) Total Bilirubin 0.5 mg/dL (0.2-1.0) Aspartate Amino Transf (AST/SGOT) 375 U/L (15-37) Alanine Aminotransferase (ALT/SGPT) 330 U/L (14-59) Alkaline Phosphatase 65 U/L (46-116) Total Protein 7.4 g/dL (6.4-8.2) Albumin 2.9 g/dL (3.4-5.0) Albumin/Globulin Ratio 0.6 (1.0-1.7) Microbiology 01/21/20 Blood Culture - Preliminary, Resulted NO GROWTH AFTER 1 DAY Medications Current Medications Azithromycin 250 mg/Sodium Chloride 250 ml @ 250 mls/hr Q24H IV Last administered on 01/22/20at 16:38; Start 01/22/20 at 14:00; Stop 01/25/20 at 14:01 Ceftriaxone Sodium (Rocephin) 1 gm Q24H IVP Last administered on 01/22/20at 12:51; Start 01/22/20 at 12:00 Enoxaparin Sodium (Lovenox 40mg Syringe) 40 mg Q24H SQ Last administered on 01/22/20at 16:38; Start 01/22/20 at 14:00 Hydroxychloroquine Sulfate (Plaquenil (Med Program)) 200 mg BID PO Last administered on 01/23/20at 09:18; Start 01/23/20 at 09:00; Stop 01/26/20 at 21:01 Hydroxychloroquine Sulfate (Plaquenil) 200 mg BID PO ; Start 01/23/20 at 09:00; Stop 01/26/20 at 21:01; Status Cancel Hydroxychloroquine Sulfate (Plaquenil) 400 mg BID PO Last administered on 01/22/20at 19:45; Start 01/22/20 at 12:00; Stop 01/22/20 at 21:01; Status DC Lactobacillus Rhamnosus (Culturelle) 1 cap BID PO Last administered on 01/23/20at 09:18; Start 01/22/20 at 21:00 Potassium Chloride (Klor-Con) 40 meq 1X ONCE PO Last administered on 01/22/20at 12:51; Start 01/22/20 at 10:30; Stop 01/22/20 at 10:31; Status DC Vitals/I & O Vital Sign - Last 24 Hours 01/22/20 01/22/20 01/22/20 01/22/20 11:20 15:19 19:00 20:00 Temp 101.1 99.9 101.8 101.1 99.9 101.8 Pulse 80 83 92 Resp 20 20 B/P (MAP) 139/64 (89) 153/63 (93) 162/66 (98) Pulse Ox 96 97 95 O2 Delivery Nasal Cannula Nasal Cannula Nasal Cannula Nasal Cannula O2 Flow Rate 2.0 2.0 2.0 01/22/20 01/22/20 01/23/20 01/23/20 20:19 23:01 03:03 07:00 Temp 100.2 100.4 102.8 100.2 100.4 102.8 Pulse 95 72 87 103 Resp 20 22 B/P (MAP) 182/72 139/60 (86) 170/72 (104) 228/96 (140) Pulse Ox 98 93 96 O2 Delivery Nasal Cannula Nasal Cannula Nasal Cannula O2 Flow Rate 2.0 01/23/20 01/23/20 01/23/20 01/23/20 07:54 09:19 09:20 09:21 Pulse 103 110 110 110 B/P (MAP) 228/96 189/79 189/79 189/79 01/23/20 09:33 Temp 101.7 101.7 Pulse 110 Resp 22 B/P (MAP) 189/79 (115) Pulse Ox 96 O2 Delivery Nasal Cannula O2 Flow Rate 2.0 Intake and Output 01/22/20 01/22/20 01/23/20 15:00 23:00 07:00 Intake Total 120 ml 120 ml Output Total 300 ml Balance 120 ml 120 ml -300 ml Hemodynamically unstable?: No Respiratory Distress?: Yes Justification for admission: COVID -19, pneumonia, CAd ,DM Serious Diagnosis?: Yes Is patient at high risk?: Yes ISAEBLA LOPEZ MD Jan 23, 2020 10:20
--- NOTE | 2020-01-23 11:13 | PDOC ---
Infectious Disease Note Subjective Subjective feeling ok ROS ROS no n/v/d/ Vital Sign Vital Signs Vital Signs Date Time Temp Pulse Resp B/P (MAP) Pulse Ox O2 Delivery O2 Flow Rate FiO2 01/23/20 09:33 101.7 110 22 189/79 (115) 96 Nasal Cannula 2.0 101.7 Physical Exam PHYSICAL EXAM GENERAL: Alert and oriented female, not in distress. VITAL SIGNS: Stable with T-max 101.9, pulse 80, respirations 20, blood pressure 139/64. HEENT: NAD. NECK: Supple, no JVP, no lymphadenopathy. LUNGS: Clear. HEART: S1, S2 regular. ABDOMEN: Benign. EXTREMITIES: No edema or cyanosis. SKIN: Unremarkable. NEUROLOGIC: The patient is alert, awake and appropriate. No focal neurologic deficit. Labs Lab Laboratory Tests Test 01/22/20 17:29 01/23/20 07:00 Glucose (Fingerstick) 110 mg/dL (70-99) Sodium Level 141 mmol/L (136-145) Potassium Level 3.4 mmol/L (3.5-5.1) Chloride Level 104 mmol/L (98-107) Carbon Dioxide Level 31 mmol/L (21-32) Anion Gap 6 (6-14) Blood Urea Nitrogen 16 mg/dL (7-20) Creatinine 1.2 mg/dL (0.6-1.0) Estimated GFR (Cockcroft-Gault) 52.9 BUN/Creatinine Ratio 13 (6-20) Glucose Level 136 mg/dL (70-99) Calcium Level 8.7 mg/dL (8.5-10.1) Total Bilirubin 0.5 mg/dL (0.2-1.0) Aspartate Amino Transf (AST/SGOT) 375 U/L (15-37) Alanine Aminotransferase (ALT/SGPT) 330 U/L (14-59) Alkaline Phosphatase 65 U/L (46-116) Total Protein 7.4 g/dL (6.4-8.2) Albumin 2.9 g/dL (3.4-5.0) Albumin/Globulin Ratio 0.6 (1.0-1.7) Micro Microbiology 01/21/20 Blood Culture - Preliminary, Resulted NO GROWTH AFTER 1 DAY Objective Assessment IMPRESSION: 1. Community-acquired pneumonia, although COVID-19 is possible. 2. Rule out COVID-19 with cough, fever, shortness of breath. 3. Coronary artery disease. 4. Diabetes. 5. Hypertension. Plan Plan of Care cont supportive care add hydroxychloroquin KEVIN GAMBOA MD Jan 23, 2020 11:12
--- NOTE | 2020-01-23 11:58 | PDOC2 ---
GI CONSULT Reason For Consult: ede LFT ?COVID pt HPI: HPI: 74 y/o female w/ possible COVID-19 pneumonia. We are asked to see re: elevated AST and ALT. Has no GI complaints. No reflux/heartburn, dysphagia, n/v, abd pain, diarrhea, constipation, hematochezia, melena, or weight loss. S/p cholecystectomy. No liver, pancreas, or PUD history. On ASA and Plavix. Chart lists h/o "gastritis." No previous EGD. Reports more than one normal colonoscopy. PMH: PMH: CAD, HTN, HLD, DM cholecystectomy, hysterectomy FH: Family History: No pertinent hx (denies FH liver disease) Social History: Smoke: No ALCOHOL: none Drugs: None ROS: GEN: +fever HEENT: Denies blurred vision, sore throat CV: Denies chest pain RESP: +SOA GI: Per HPI : Denies hematuria, dysuria ENDO: Denies weight changes NEURO: Denies confusion, dizziness MSK: +weakness SKIN: Denies jaundice, pruritus Vitals: Vitals: Vital Signs Date Time Temp Pulse Resp B/P (MAP) Pulse Ox O2 Delivery O2 Flow Rate FiO2 01/23/20 11:27 99.9 72 20 121/58 (79) 94 Room Air 99.9 01/23/20 09:33 2.0 Labs: Labs: Laboratory Tests Test 01/22/20 17:29 01/23/20 07:00 01/23/20 11:41 Glucose (Fingerstick) 110 mg/dL (70-99) 157 mg/dL (70-99) Sodium Level 141 mmol/L (136-145) Potassium Level 3.4 mmol/L (3.5-5.1) Chloride Level 104 mmol/L (98-107) Carbon Dioxide Level 31 mmol/L (21-32) Anion Gap 6 (6-14) Blood Urea Nitrogen 16 mg/dL (7-20) Creatinine 1.2 mg/dL (0.6-1.0) Estimated GFR (Cockcroft-Gault) 52.9 BUN/Creatinine Ratio 13 (6-20) Glucose Level 136 mg/dL (70-99) Calcium Level 8.7 mg/dL (8.5-10.1) Total Bilirubin 0.5 mg/dL (0.2-1.0) Aspartate Amino Transf (AST/SGOT) 375 U/L (15-37) Alanine Aminotransferase (ALT/SGPT) 330 U/L (14-59) Alkaline Phosphatase 65 U/L (46-116) Total Protein 7.4 g/dL (6.4-8.2) Albumin 2.9 g/dL (3.4-5.0) Albumin/Globulin Ratio 0.6 (1.0-1.7) BLOOD CULTURE Preliminary NO GROWTH AFTER 1 DAY Allergies: Coded Allergies: No Known Drug Allergies (Unverified , 03/30/14) Medications: Current Medications Medications (Trade) Dose Ordered Sig/Christiane Route PRN Reason Start Time Stop Time Status Last Admin Dose Admin Azithromycin 250 mg/Sodium Chloride 250 ml @ 250 mls/hr Q24H IV 01/22/20 14:00 01/25/20 14:01 01/22/20 16:38 Ceftriaxone Sodium (Rocephin) 1 gm Q24H IVP 01/22/20 12:00 01/22/20 12:51 Enoxaparin Sodium (Lovenox 40mg Syringe) 40 mg Q24H SQ 01/22/20 14:00 01/22/20 16:38 Hydroxychloroquine Sulfate (Plaquenil) 400 mg BID PO 01/22/20 12:00 01/22/20 21:01 DC 01/22/20 19:45 Lactobacillus Rhamnosus (Culturelle) 1 cap BID PO 01/22/20 21:00 01/23/20 09:18 Hydroxychloroquine Sulfate (Plaquenil (Med Program)) 200 mg BID PO 01/23/20 09:00 01/26/20 21:01 01/23/20 09:18 Imaging: Imaging: CXR Impression: 1. There is right base infiltrate, also questionably minimally of the left base. PE: GEN: NAD HEENT: Atraumatic, PERRL LUNGS: diminished anteriorly HEART: mildly tachycardic ABD: NABS, S/ND/NT EXTREMITY: No edema SKIN: No rashes, no jaundice NEURO/PSYCH: A & O 3 A/P: A/P: Pneumonia, r/o COVID-19 Elevated AST and ALT - mild on admission, now a bit worse CRC screen - reportedly normal in the past -- Awaiting COVID testing. ?LFTs related to drug Check viral hepatitis panel for completeness, also abd US, monitor labs. DEANNE DIANA Jan 23, 2020 11:58
[2020-01-23] MEDS: cefTRIAXone IV Push 1 GM VIAL. IVP SCH (13:22)
[2020-01-23] MEDS: ENOXAPARIN 40 MG/0.4 ML SYRINGE. SQ SCH (13:24)
[2020-01-23] MEDS: AZITHROMYCIN 250 MG in IV NORMAL SALINE 250ML 250 ML IV SCH (13:24)
[2020-01-23] MEDS: SIMVASTATIN 40 MG TABLET. PO SCH (20:45)
[2020-01-24 03:31] VITALS: BP 165/76
[2020-01-24 05:57] LABS: ALBUMIN 2.5 g/dL (3.4-5.0); DIRECT BILIRUBIN 0.1 mg/dL (0.0-0.2); TOTAL BILIRUBIN 0.4 mg/dL (0.2-1.0)
[2020-01-24 07:00] VITALS: BP 204/88
[2020-01-24] MEDS: INSULIN LISPRO 300 UNITS/3 ML VIAL. SQ SCH ×3 (08:00→17:00)
[2020-01-24] MEDS: LACTOBACILLUS RHAMNOSUS GG 1 CAPSULE. PO SCH ×2 (08:29→21:02)
[2020-01-24] MEDS: metFORMIN XR 500 MG TAB.ER.24H PO SCH (08:29)
[2020-01-24] MEDS: ASPIRIN ENTERIC COATED 81 MG TABLET.DR. PO SCH (08:29)
[2020-01-24] MEDS: hydroCHLOROthiazide 12.5 MG CAPSULE PO SCH (08:29)
[2020-01-24] MEDS: LISINOPRIL 20 MG TABLET PO SCH (08:30)
[2020-01-24] MEDS: METOPROLOL TART IMMED RELEASE 50 MG TABLET. PO SCH ×2 (08:31→21:03)
[2020-01-24] MEDS: CLOPIDOGREL BISULFATE 75 MG TABLET PO SCH (08:31)
[2020-01-24] MEDS: cloNIDine HCL 0.2 MG TABLET PO SCH (08:31)
--- NOTE | 2020-01-24 09:48 | PDOC ---
PULMONARY PROGRESS NOTES Subjective Denies increased cough, SOA, or CP Remains on N/C oxygen, a-febrile Vitals Vital Signs Date Time Temp Pulse Resp B/P (MAP) Pulse Ox O2 Delivery O2 Flow Rate FiO2 01/24/20 08:31 80 204/76 01/24/20 07:00 97.0 20 97 Nasal Cannula 2.0 97.0 Comments visual exam done via tele med no soa, on canula no rash no leg edema General: Alert, No acute distress Labs Laboratory Tests Test 01/22/20 17:29 01/23/20 07:00 01/23/20 11:41 01/23/20 16:23 Glucose (Fingerstick) 110 mg/dL (70-99) 157 mg/dL (70-99) 131 mg/dL (70-99) Sodium Level 141 mmol/L (136-145) Potassium Level 3.4 mmol/L (3.5-5.1) Chloride Level 104 mmol/L (98-107) Carbon Dioxide Level 31 mmol/L (21-32) Anion Gap 6 (6-14) Blood Urea Nitrogen 16 mg/dL (7-20) Creatinine 1.2 mg/dL (0.6-1.0) Estimated GFR (Cockcroft-Gault) 52.9 BUN/Creatinine Ratio 13 (6-20) Glucose Level 136 mg/dL (70-99) Calcium Level 8.7 mg/dL (8.5-10.1) Total Bilirubin 0.5 mg/dL (0.2-1.0) Aspartate Amino Transf (AST/SGOT) 375 U/L (15-37) Alanine Aminotransferase (ALT/SGPT) 330 U/L (14-59) Alkaline Phosphatase 65 U/L (46-116) Total Protein 7.4 g/dL (6.4-8.2) Albumin 2.9 g/dL (3.4-5.0) Albumin/Globulin Ratio 0.6 (1.0-1.7) Hepatitis A IgM Antibody Nonreactive (Nonreactive) Hepatitis B Surface Antigen Nonreactive (Nonreactive) Hepatitis B Core IgM Antibody Nonreactive (Nonreactive) Hepatitis C IgG Antibody Nonreactive (Nonreactive) Test 01/23/20 21:52 01/24/20 04:38 01/24/20 08:06 Glucose (Fingerstick) 123 mg/dL (70-99) 115 mg/dL (70-99) Total Bilirubin 0.4 mg/dL (0.2-1.0) Direct Bilirubin 0.1 mg/dL (0.0-0.2) Aspartate Amino Transf (AST/SGOT) 279 U/L (15-37) Alanine Aminotransferase (ALT/SGPT) 313 U/L (14-59) Alkaline Phosphatase 60 U/L (46-116) Total Protein 7.0 g/dL (6.4-8.2) Albumin 2.5 g/dL (3.4-5.0) Laboratory Tests Test 01/23/20 11:41 01/23/20 16:23 01/23/20 21:52 01/24/20 04:38 Glucose (Fingerstick) 157 mg/dL (70-99) 131 mg/dL (70-99) 123 mg/dL (70-99) Total Bilirubin 0.4 mg/dL (0.2-1.0) Direct Bilirubin 0.1 mg/dL (0.0-0.2) Aspartate Amino Transf (AST/SGOT) 279 U/L (15-37) Alanine Aminotransferase (ALT/SGPT) 313 U/L (14-59) Alkaline Phosphatase 60 U/L (46-116) Total Protein 7.0 g/dL (6.4-8.2) Albumin 2.5 g/dL (3.4-5.0) Test 01/24/20 08:06 Glucose (Fingerstick) 115 mg/dL (70-99) Medications Active Scripts Medications Dose Route/Sig Max Daily Dose Days Date Category Hydrochlorothiazide Tablet (Hydrochlorothiazide) 12.5 Mg Tablet 12.5 Mg PO DAILY 03/30/14 Reported Clopidogrel (Clopidogrel Bisulfate) 75 Mg Tablet 75 Mg PO DAILY 03/30/14 Reported Enalapril Maleate 20 Mg Tablet 20 Mg PO DAILY 03/30/14 Reported Metoprolol Tartrate 100 Mg Tablet 100 Mg PO BID 03/30/14 Reported Simvastatin 40 Mg Tablet 40 Mg PO DAILY 03/30/14 Reported Clonidine Hcl 0.2 Mg Tablet 0.2 Mg PO DAILY 03/30/14 Reported Calcium 500 + D Tablet (Calcium Carbonate/Vitamin D3) 1 Each Tablet 1 Each PO 03/30/14 Reported Daily Vitamin (Multivitamin) 1 Each Tablet 1 Each PO 03/30/14 Reported Aspir 81 (Aspirin) 81 Mg Tablet. 81 Mg PO 03/30/14 Reported Metformin Hcl Er (Metformin Hcl) 500 Mg Tab.er.24h 500 Mg PO DAILYWBKFT 03/30/14 Reported Impression . Acute hypoxic respiratory failure Fever Right lower lobe pneumonia, COVID-19 pneumonia. Abnormal chest x-ray with right lower lobe pneumonia, COVID -19 + No significant tobacco history Plan . 1. Continue with present oxygen to keep saturation 92 and above. 2. Continue broad-spectrum antibiotics including azithromycin and also addition of Plaquenil. 3. We will follow the clinical course. 4. We will monitor closely for oxygen requirement. 5. Follow Infectious Disease recommendation. 6. Discussed with RN. DVT/GI PPX Patient could possibly D/C home on home oxygen or with home health within the next 24 hours in continue to do well. CASH TREJO MD Jan 24, 2020 09:48
[2020-01-24] MEDS: HYDROXYCHLOROQUINE (PROGRAM) 200 MG TABLET PO SCH ×2 (09:53→21:03)
[2020-01-24] MEDS: hydrALAZINE 20 MG/ML VIAL. IVP PRN (09:55)
--- NOTE | 2020-01-24 10:50 | PDOC ---
Infectious Disease Note Subjective Subjective Fever Tmax 101.2, afebrile so far today On 2L O2 Weak and lethargic Vital Sign Vital Signs Vital Signs Date Time Temp Pulse Resp B/P (MAP) Pulse Ox O2 Delivery O2 Flow Rate FiO2 01/24/20 09:55 80 204/76 01/24/20 07:00 97.0 20 97 Nasal Cannula 2.0 97.0 Physical Exam PHYSICAL EXAM deferred. see PCP/pulm assessment Labs Lab Laboratory Tests Test 01/23/20 11:41 01/23/20 16:23 01/23/20 21:52 01/24/20 04:38 Glucose (Fingerstick) 157 mg/dL (70-99) 131 mg/dL (70-99) 123 mg/dL (70-99) Total Bilirubin 0.4 mg/dL (0.2-1.0) Direct Bilirubin 0.1 mg/dL (0.0-0.2) Aspartate Amino Transf (AST/SGOT) 279 U/L (15-37) Alanine Aminotransferase (ALT/SGPT) 313 U/L (14-59) Alkaline Phosphatase 60 U/L (46-116) Total Protein 7.0 g/dL (6.4-8.2) Albumin 2.5 g/dL (3.4-5.0) Test 01/24/20 08:06 Glucose (Fingerstick) 115 mg/dL (70-99) Micro Microbiology 01/21/20 Blood Culture - Preliminary, Resulted NO GROWTH AFTER 2 DAYS Objective Assessment Pneumonia Acute SARS-CoV-2 Transaminitis - worsening Coronary artery disease. Diabetes. Hypertension. Plan Plan of Care Rocephin Azithromycin and Plaquenil Probiotics f/u BC Repeat labs in am GI consulted Airborne isolation for + COVID-19 D/w pulm D/w nursing Attending Co-Sign The patient was seen and interviewed as well as examined at the bedside. The chart was reviewed. The case was discussed. Agree with the plan of care. LORENA GARRISON APRN Jan 24, 2020 10:50 JARED GAMBOA MD Jan 24, 2020 14:25
[2020-01-24 11:00] VITALS: BP 174/78
--- NOTE | 2020-01-24 11:33 | PDOC ---
PROGRESS NOTES Subjective Subjective feels better today Objective Objective Vital Signs Date Time Temp Pulse Resp B/P (MAP) Pulse Ox O2 Delivery O2 Flow Rate FiO2 01/24/20 09:55 80 204/76 01/24/20 08:00 Nasal Cannula 2.0 01/24/20 07:00 97.0 20 97 97.0 Intake and Output 01/24/20 07:00 Intake Total 1610 ml Output Total 750 ml Balance 860 ml Intake Oral 560 ml IV Total 1050 ml Output Urine Total 750 ml # Voids 4 Physical Exam Abdomen: Soft Heart: Regular rate, Normal S1, Normal S2 Extremities: No clubbing, No edema General: Oriented X3, mild distress HEENT: Atraumatic, PERRLA Lungs: Other (Decreased breath breath sounds on right base, no wheezing) MUSCULOSKELETAL: No deformity Neck: Supple Neuro: Normal speech Psych/Mental Status: Mental status NL Skin: No breakdown Diagnosis Problem List Problems Medical Problems: (1) Pneumonia Status: Acute Assessment Assessment Problems Medical Problems: (1) Pneumonia Status: Acute Assessment/Plan Impression:Positive COVID-19 infection, fevers with pneumonia 1. Fever with chills Positive COVID -19, 2. Right lower lobe infiltration possible pneumonia. 3. Hypokalemia. 4. Mild renal sufficiency. 5. History of coronary disease stable. 6. Hypertension accelerated. 7. Mild elevated liver function test. 8. Diabetes 9. Hyperlipidemia 10 .ede LFT Plan:GI consult for ede LFT 300 range. positive test for COVID-19. Acute hepatitis neg. LFT trending down d/c iv fluids Patient was admitted to the hospital isolation room. Patient was started on broad-spectrum antibiotic Zithromax and Rocephin+Plaquinil. No swab was taken for viral infection ,influenza test was negative Blood cultures was done.so far neg ID was consulted Pulmonary was consulted Replaced potassium IV fluids for hydration, kidney function normal DVT prevention Plan Plan of Care Problems Medical Problems: (1) Pneumonia Status: Acute Comment Review of Relevant I have reviewed the following items tim (where applicable) has been applied. Labs Laboratory Tests Test 01/23/20 11:41 01/23/20 16:23 01/23/20 21:52 01/24/20 04:38 Glucose (Fingerstick) 157 mg/dL (70-99) 131 mg/dL (70-99) 123 mg/dL (70-99) Total Bilirubin 0.4 mg/dL (0.2-1.0) Direct Bilirubin 0.1 mg/dL (0.0-0.2) Aspartate Amino Transf (AST/SGOT) 279 U/L (15-37) Alanine Aminotransferase (ALT/SGPT) 313 U/L (14-59) Alkaline Phosphatase 60 U/L (46-116) Total Protein 7.0 g/dL (6.4-8.2) Albumin 2.5 g/dL (3.4-5.0) Test 01/24/20 08:06 01/24/20 11:03 Glucose (Fingerstick) 115 mg/dL (70-99) 143 mg/dL (70-99) Microbiology 01/21/20 Blood Culture - Preliminary, Resulted NO GROWTH AFTER 2 DAYS Medications Current Medications Labetalol HCl (Normodyne Iv Push) 15 mg PRN Q2HR PRN IVP HYPERTENSION; Start 01/24/20 at 11:30 Vitals/I & O Vital Sign - Last 24 Hours 01/23/20 01/23/20 01/23/20 01/23/20 14:39 17:15 18:31 20:00 Temp 98.8 101.2 100.4 98.8 101.2 100.4 Pulse 77 84 Resp 20 20 B/P (MAP) 116/58 (77) 132/60 (84) Pulse Ox 97 97 O2 Delivery Nasal Cannula Nasal Cannula Nasal Cannula O2 Flow Rate 2.0 2.0 2.0 01/23/20 01/23/20 01/24/20 01/24/20 20:45 23:44 03:31 07:00 Temp 99.5 99.2 97.0 99.5 99.2 97.0 Pulse 86 81 80 80 Resp 20 20 20 B/P (MAP) 132/60 163/75 (104) 165/76 (105) 204/88 (126) Pulse Ox 98 97 97 O2 Delivery Nasal Cannula Nasal Cannula Nasal Cannula O2 Flow Rate 2.0 2.0 2.0 01/24/20 01/24/20 01/24/20 01/24/20 08:00 08:30 08:31 08:31 Pulse 80 80 80 B/P (MAP) 204/76 / O2 Delivery Nasal Cannula O2 Flow Rate 2.0 01/24/20 09:55 Pulse 80 B/P (MAP) 204/76 Intake and Output 01/23/20 01/23/20 01/24/20 15:00 23:00 07:00 Intake Total 1040 ml 370 ml 200 ml Output Total 750 ml Balance 1040 ml 370 ml -550 ml Hemodynamically unstable?: No Respiratory Distress?: Yes Justification for admission: COVID -19, pneumonia, CAd ,DM Serious Diagnosis?: Yes Is patient at high risk?: Yes ISABELA LOPEZ MD Jan 24, 2020 11:33
[2020-01-24] MEDS: cefTRIAXone IV Push 1 GM VIAL. IVP SCH (11:35)
[2020-01-24] MEDS: LABETALOL 20 MG/4 ML DISP.SYRIN. IVP PRN (11:35)
[2020-01-24] MEDS: ACETAMINOPHEN 325 MG TABLET. PO PRN ×2 (12:51→21:02)
[2020-01-24] MEDS: AZITHROMYCIN 250 MG in IV NORMAL SALINE 250ML 250 ML IV SCH (15:09)
[2020-01-24] MEDS: ENOXAPARIN 40 MG/0.4 ML SYRINGE. SQ SCH (15:09)
[2020-01-24 15:43] VITALS: BP 148/65
[2020-01-24 19:55] VITALS: BP 179/99
[2020-01-24] MEDS: SIMVASTATIN 40 MG TABLET. PO SCH (21:02)
[2020-01-24 23:20] VITALS: BP 192/82
[2020-01-25] VITALS (7 sets, daily range): BP systolic 141–189; BP diastolic 64–84
[2020-01-25] MEDS: hydrALAZINE 20 MG/ML VIAL. IVP PRN ×3 (02:31→23:28)
[2020-01-25] MEDS ORDERED: ONDANSETRON PF 4 MG/2 ML VIAL. IVP PRN ×2 (04:30)
[2020-01-25] MEDS: LABETALOL 20 MG/4 ML DISP.SYRIN. IVP PRN (05:04)
[2020-01-25 06:15] LABS: ALBUMIN 2.4 g/dL (3.4-5.0); ALBUMIN/GLOBULIN RATIO 0.5 (1.0-1.7); CALCIUM 8.3 mg/dL (8.5-10.1); GFR 65.2; TOTAL BILIRUBIN 0.4 mg/dL (0.2-1.0); TOTAL PROTEIN 6.8 g/dL (6.4-8.2)
[2020-01-25 06:20] LABS: BASO % 0 % (0-3); EOS % 0 % (0-3); HEMOGLOBIN 12.1 g/dL (12.0-15.5); LYMPH % 12 % (24-48); MEAN CORPUSCULAR HEMOGLOBIN 26 pg (25-35); MEAN CORPUSCULAR HGB CONC 33 g/dL (31-37); MEAN CORPUSCULAR VOLUME 79 fL (79-100); MONO # 0.5 x10^3/uL (0.0-1.1); MONO % 6 % (0-9); NEUT # 6.8 x10^3/uL (1.8-7.7); NEUT % 81 % (31-73); PLATELET COUNT 195 x10^3/uL (140-400); RED CELL DISTRIBUTION WIDTH 14.3 % (11.5-14.5); WHITE BLOOD COUNT 8.4 x10^3/uL (4.0-11.0)
[2020-01-25] MEDS: INSULIN LISPRO 300 UNITS/3 ML VIAL. SQ SCH ×3 (08:00→17:00)
[2020-01-25] MEDS: metFORMIN XR 500 MG TAB.ER.24H PO SCH (09:49)
[2020-01-25] MEDS: cloNIDine HCL 0.2 MG TABLET PO SCH (09:50)
[2020-01-25] MEDS: METOPROLOL TART IMMED RELEASE 50 MG TABLET. PO SCH ×2 (09:50→20:30)
[2020-01-25] MEDS: LACTOBACILLUS RHAMNOSUS GG 1 CAPSULE. PO SCH ×2 (09:50→20:29)
[2020-01-25] MEDS: ASPIRIN ENTERIC COATED 81 MG TABLET.DR. PO SCH (09:50)
[2020-01-25] MEDS: HYDROXYCHLOROQUINE (PROGRAM) 200 MG TABLET PO SCH ×2 (09:51→20:29)
[2020-01-25] MEDS: CLOPIDOGREL BISULFATE 75 MG TABLET PO SCH (09:51)
[2020-01-25] MEDS: LISINOPRIL 20 MG TABLET PO SCH (09:51)
[2020-01-25] MEDS: ACETAMINOPHEN 325 MG TABLET. PO PRN ×2 (09:56→20:29)
--- NOTE | 2020-01-25 10:29 | PDOC ---
PULMONARY PROGRESS NOTES Subjective reports not feeling well today, not sure why Denies increased cough, SOA, or CP Remains on N/C oxygen, a-febrile Vitals Vital Signs Date Time Temp Pulse Resp B/P (MAP) Pulse Ox O2 Delivery O2 Flow Rate FiO2 01/25/20 09:54 97 189/79 01/25/20 07:00 97.8 22 94 Room Air 97.8 01/24/20 23:20 2.0 Comments visual exam done no soa, on canula no rash no leg edema General: Alert, No acute distress Labs Laboratory Tests Test 01/23/20 11:41 01/23/20 16:23 01/23/20 21:52 01/24/20 04:38 Glucose (Fingerstick) 157 mg/dL (70-99) 131 mg/dL (70-99) 123 mg/dL (70-99) Total Bilirubin 0.4 mg/dL (0.2-1.0) Direct Bilirubin 0.1 mg/dL (0.0-0.2) Aspartate Amino Transf (AST/SGOT) 279 U/L (15-37) Alanine Aminotransferase (ALT/SGPT) 313 U/L (14-59) Alkaline Phosphatase 60 U/L (46-116) Total Protein 7.0 g/dL (6.4-8.2) Albumin 2.5 g/dL (3.4-5.0) Test 01/24/20 08:06 01/24/20 11:03 01/24/20 16:29 01/24/20 21:13 Glucose (Fingerstick) 115 mg/dL (70-99) 143 mg/dL (70-99) 94 mg/dL (70-99) 110 mg/dL (70-99) Test 01/25/20 05:00 01/25/20 07:33 White Blood Count 8.4 x10^3/uL (4.0-11.0) Red Blood Count 4.70 x10^6/uL (3.50-5.40) Hemoglobin 12.1 g/dL (12.0-15.5) Hematocrit 37.0 % (36.0-47.0) Mean Corpuscular Volume 79 fL (79-100) Mean Corpuscular Hemoglobin 26 pg (25-35) Mean Corpuscular Hemoglobin Concent 33 g/dL (31-37) Red Cell Distribution Width 14.3 % (11.5-14.5) Platelet Count 195 x10^3/uL (140-400) Neutrophils (%) (Auto) 81 % (31-73) Lymphocytes (%) (Auto) 12 % (24-48) Monocytes (%) (Auto) 6 % (0-9) Eosinophils (%) (Auto) 0 % (0-3) Basophils (%) (Auto) 0 % (0-3) Neutrophils # (Auto) 6.8 x10^3/uL (1.8-7.7) Lymphocytes # (Auto) 1.0 x10^3/uL (1.0-4.8) Monocytes # (Auto) 0.5 x10^3/uL (0.0-1.1) Eosinophils # (Auto) 0.0 x10^3/uL (0.0-0.7) Basophils # (Auto) 0.0 x10^3/uL (0.0-0.2) Sodium Level 143 mmol/L (136-145) Potassium Level 3.0 mmol/L (3.5-5.1) Chloride Level 104 mmol/L (98-107) Carbon Dioxide Level 27 mmol/L (21-32) Anion Gap 12 (6-14) Blood Urea Nitrogen 11 mg/dL (7-20) Creatinine 1.0 mg/dL (0.6-1.0) Estimated GFR (Cockcroft-Gault) 65.2 BUN/Creatinine Ratio 11 (6-20) Glucose Level 115 mg/dL (70-99) Calcium Level 8.3 mg/dL (8.5-10.1) Total Bilirubin 0.4 mg/dL (0.2-1.0) Aspartate Amino Transf (AST/SGOT) 230 U/L (15-37) Alanine Aminotransferase (ALT/SGPT) 313 U/L (14-59) Alkaline Phosphatase 61 U/L (46-116) Total Protein 6.8 g/dL (6.4-8.2) Albumin 2.4 g/dL (3.4-5.0) Albumin/Globulin Ratio 0.5 (1.0-1.7) Glucose (Fingerstick) 113 mg/dL (70-99) Laboratory Tests Test 01/24/20 11:03 01/24/20 16:29 01/24/20 21:13 01/25/20 05:00 Glucose (Fingerstick) 143 mg/dL (70-99) 94 mg/dL (70-99) 110 mg/dL (70-99) White Blood Count 8.4 x10^3/uL (4.0-11.0) Red Blood Count 4.70 x10^6/uL (3.50-5.40) Hemoglobin 12.1 g/dL (12.0-15.5) Hematocrit 37.0 % (36.0-47.0) Mean Corpuscular Volume 79 fL (79-100) Mean Corpuscular Hemoglobin 26 pg (25-35) Mean Corpuscular Hemoglobin Concent 33 g/dL (31-37) Red Cell Distribution Width 14.3 % (11.5-14.5) Platelet Count 195 x10^3/uL (140-400) Neutrophils (%) (Auto) 81 % (31-73) Lymphocytes (%) (Auto) 12 % (24-48) Monocytes (%) (Auto) 6 % (0-9) Eosinophils (%) (Auto) 0 % (0-3) Basophils (%) (Auto) 0 % (0-3) Neutrophils # (Auto) 6.8 x10^3/uL (1.8-7.7) Lymphocytes # (Auto) 1.0 x10^3/uL (1.0-4.8) Monocytes # (Auto) 0.5 x10^3/uL (0.0-1.1) Eosinophils # (Auto) 0.0 x10^3/uL (0.0-0.7) Basophils # (Auto) 0.0 x10^3/uL (0.0-0.2) Sodium Level 143 mmol/L (136-145) Potassium Level 3.0 mmol/L (3.5-5.1) Chloride Level 104 mmol/L (98-107) Carbon Dioxide Level 27 mmol/L (21-32) Anion Gap 12 (6-14) Blood Urea Nitrogen 11 mg/dL (7-20) Creatinine 1.0 mg/dL (0.6-1.0) Estimated GFR (Cockcroft-Gault) 65.2 BUN/Creatinine Ratio 11 (6-20) Glucose Level 115 mg/dL (70-99) Calcium Level 8.3 mg/dL (8.5-10.1) Total Bilirubin 0.4 mg/dL (0.2-1.0) Aspartate Amino Transf (AST/SGOT) 230 U/L (15-37) Alanine Aminotransferase (ALT/SGPT) 313 U/L (14-59) Alkaline Phosphatase 61 U/L (46-116) Total Protein 6.8 g/dL (6.4-8.2) Albumin 2.4 g/dL (3.4-5.0) Albumin/Globulin Ratio 0.5 (1.0-1.7) Test 01/25/20 07:33 Glucose (Fingerstick) 113 mg/dL (70-99) Medications Active Scripts Medications Dose Route/Sig Max Daily Dose Days Date Category Hydrochlorothiazide Tablet (Hydrochlorothiazide) 12.5 Mg Tablet 12.5 Mg PO DAILY 03/30/14 Reported Clopidogrel (Clopidogrel Bisulfate) 75 Mg Tablet 75 Mg PO DAILY 03/30/14 Reported Enalapril Maleate 20 Mg Tablet 20 Mg PO DAILY 03/30/14 Reported Metoprolol Tartrate 100 Mg Tablet 100 Mg PO BID 03/30/14 Reported Simvastatin 40 Mg Tablet 40 Mg PO DAILY 03/30/14 Reported Clonidine Hcl 0.2 Mg Tablet 0.2 Mg PO DAILY 03/30/14 Reported Calcium 500 + D Tablet (Calcium Carbonate/Vitamin D3) 1 Each Tablet 1 Each PO 03/30/14 Reported Daily Vitamin (Multivitamin) 1 Each Tablet 1 Each PO 03/30/14 Reported Aspir 81 (Aspirin) 81 Mg Tablet.dr 81 Mg PO 03/30/14 Reported Metformin Hcl Er (Metformin Hcl) 500 Mg Tab.er.24h 500 Mg PO DAILYWBKFT 03/30/14 Reported Impression . Acute hypoxic respiratory failure Fever Right lower lobe pneumonia, COVID-19 pneumonia. Abnormal chest x-ray with right lower lobe pneumonia, COVID -19 + No significant tobacco history Hypokalemia HTN Plan . 1. Continue with present oxygen to keep saturation 92 and above. 2. Continue broad-spectrum antibiotics including azithromycin and cont. Plaquenil. 3. We will follow the clinical course. 4. We will monitor closely for oxygen requirement. 5. Follow Infectious Disease recommendation. 6. Discussed with RN. DVT/GI PPX CASH TREJO MD Jan 25, 2020 10:29
[2020-01-25] MEDS ORDERED: POTASSIUM CHLORIDE 20 MEQ TABLET.ER. PO ONE ×2 (10:30→12:30)
--- NOTE | 2020-01-25 11:49 | PDOC ---
PROGRESS NOTES Subjective Subjective no new problems Objective Objective Vital Signs Date Time Temp Pulse Resp B/P (MAP) Pulse Ox O2 Delivery O2 Flow Rate FiO2 01/25/20 11:34 99.0 80 20 141/64 (89) 97 Room Air 99.0 01/24/20 23:20 2.0 Intake and Output 01/25/20 07:00 Intake Total 1050 ml Output Total 650 ml Balance 400 ml Intake Oral 800 ml IV Total 250 ml Output Urine Total 650 ml # Voids 4 # Bowel Movements 2 Physical Exam Abdomen: Soft Heart: Regular rate, Normal S1, Normal S2 Extremities: No clubbing, No edema General: Oriented X3, mild distress HEENT: Atraumatic, PERRLA Lungs: Other (Decreased breath breath sounds on right base, no wheezing) MUSCULOSKELETAL: No deformity Neck: Supple Neuro: Normal speech Psych/Mental Status: Mental status NL Skin: No breakdown Diagnosis Problem List Problems Medical Problems: (1) Pneumonia Status: Acute Assessment Assessment Problems Medical Problems: (1) Pneumonia Status: Acute Assessment/Plan Impression:Positive COVID-19 infection, fevers with pneumonia 1. Fever with chills Positive COVID -19, 2. Right lower lobe infiltration possible pneumonia. 3. Hypokalemia. 4. Mild renal sufficiency. 5. History of coronary disease stable. 6. Hypertension accelerated. 7. Mild elevated liver function test. 8. Diabetes 9. Hyperlipidemia 10 .ede LFT Plan: Dec slightly in LFT .. positive test for COVID-19. Acute hepatitis neg. replace pot,po 3.0 d/c iv fluids. completed zithromax+plaquenil on Rocephin Plan Plan of Care Problems Medical Problems: (1) Pneumonia Status: Acute Comment Review of Relevant I have reviewed the following items tim (where applicable) has been applied. Labs Laboratory Tests Test 01/24/20 16:29 01/24/20 21:13 01/25/20 05:00 01/25/20 07:33 Glucose (Fingerstick) 94 mg/dL (70-99) 110 mg/dL (70-99) 113 mg/dL (70-99) White Blood Count 8.4 x10^3/uL (4.0-11.0) Red Blood Count 4.70 x10^6/uL (3.50-5.40) Hemoglobin 12.1 g/dL (12.0-15.5) Hematocrit 37.0 % (36.0-47.0) Mean Corpuscular Volume 79 fL (79-100) Mean Corpuscular Hemoglobin 26 pg (25-35) Mean Corpuscular Hemoglobin Concent 33 g/dL (31-37) Red Cell Distribution Width 14.3 % (11.5-14.5) Platelet Count 195 x10^3/uL (140-400) Neutrophils (%) (Auto) 81 % (31-73) Lymphocytes (%) (Auto) 12 % (24-48) Monocytes (%) (Auto) 6 % (0-9) Eosinophils (%) (Auto) 0 % (0-3) Basophils (%) (Auto) 0 % (0-3) Neutrophils # (Auto) 6.8 x10^3/uL (1.8-7.7) Lymphocytes # (Auto) 1.0 x10^3/uL (1.0-4.8) Monocytes # (Auto) 0.5 x10^3/uL (0.0-1.1) Eosinophils # (Auto) 0.0 x10^3/uL (0.0-0.7) Basophils # (Auto) 0.0 x10^3/uL (0.0-0.2) Sodium Level 143 mmol/L (136-145) Potassium Level 3.0 mmol/L (3.5-5.1) Chloride Level 104 mmol/L (98-107) Carbon Dioxide Level 27 mmol/L (21-32) Anion Gap 12 (6-14) Blood Urea Nitrogen 11 mg/dL (7-20) Creatinine 1.0 mg/dL (0.6-1.0) Estimated GFR (Cockcroft-Gault) 65.2 BUN/Creatinine Ratio 11 (6-20) Glucose Level 115 mg/dL (70-99) Calcium Level 8.3 mg/dL (8.5-10.1) Total Bilirubin 0.4 mg/dL (0.2-1.0) Aspartate Amino Transf (AST/SGOT) 230 U/L (15-37) Alanine Aminotransferase (ALT/SGPT) 313 U/L (14-59) Alkaline Phosphatase 61 U/L (46-116) Total Protein 6.8 g/dL (6.4-8.2) Albumin 2.4 g/dL (3.4-5.0) Albumin/Globulin Ratio 0.5 (1.0-1.7) Test 01/25/20 10:54 Glucose (Fingerstick) 107 mg/dL (70-99) Microbiology 01/21/20 Blood Culture - Preliminary, Resulted NO GROWTH AFTER 3 DAYS Medications Current Medications Ondansetron HCl (Zofran) 4 mg PRN Q6HRS PRN IVP NAUSEA/VOMITING Last administered on 01/25/20at 05:02; Start 01/25/20 at 04:30 Ondansetron HCl (Zofran) 8 mg PRN Q6HRS PRN IVP NAUSEA/VOMITING; Start 01/25/20 at 04:30 Potassium Chloride (Klor-Con) 20 meq 1X ONCE PO ; Start 01/25/20 at 12:30; Stop 01/25/20 at 12:31 Potassium Chloride (Klor-Con) 40 meq 1X ONCE PO ; Start 01/25/20 at 10:30; Stop 01/25/20 at 10:31; Status DC Vitals/I & O Vital Sign - Last 24 Hours 01/24/20 01/24/20 01/24/20 01/24/20 15:43 19:55 20:36 21:03 Temp 101.1 99.9 101.1 99.9 Pulse 86 98 98 Resp 20 18 B/P (MAP) 148/65 (92) 179/99 (125) 179/99 Pulse Ox 97 99 O2 Delivery Nasal Cannula Nasal Cannula Nasal Cannula O2 Flow Rate 2.0 2.0 2.0 01/24/20 01/25/20 01/25/20 01/25/20 23:20 02:31 03:30 05:04 Temp 98.1 98.6 98.1 98.6 Pulse 93 93 89 86 Resp 20 22 B/P (MAP) 192/82 (118) 192/82 180/80 (113) 180/80 Pulse Ox 98 89 O2 Delivery Nasal Cannula Room Air O2 Flow Rate 2.0 01/25/20 01/25/20 01/25/20 01/25/20 07:00 09:50 09:50 09:51 Temp 97.8 97.8 Pulse 97 97 97 97 Resp 22 B/P (MAP) 189/79 (115) 189/79 189/79 189/79 Pulse Ox 94 O2 Delivery Room Air 01/25/20 01/25/20 09:54 11:34 Temp 99.0 99.0 Pulse 97 80 Resp 20 B/P (MAP) 189/79 141/64 (89) Pulse Ox 97 O2 Delivery Room Air Intake and Output 01/24/20 01/24/20 01/25/20 15:00 23:00 07:00 Intake Total 450 ml 500 ml 100 ml Output Total 250 ml 400 ml Balance 450 ml 250 ml -300 ml Hemodynamically unstable?: No Respiratory Distress?: Yes Justification for admission: COVID -19, pneumonia, CAd ,DM Serious Diagnosis?: Yes Is patient at high risk?: Yes ISABELA LOPEZ MD Jan 25, 2020 11:49
[2020-01-25] MEDS: cefTRIAXone IV Push 1 GM VIAL. IVP SCH (12:32)
--- NOTE | 2020-01-25 12:47 | PDOC ---
Infectious Disease Note Subjective Subjective Not feeling very well Tires easily Denies worsening SOA or cough Occ phlegm Stress incontinence No further fevers since yesterday Remains on 2L O2 Denies N/V/D Vital Sign Vital Signs Vital Signs Date Time Temp Pulse Resp B/P (MAP) Pulse Ox O2 Delivery O2 Flow Rate FiO2 01/25/20 11:34 99.0 80 20 141/64 (89) 97 Room Air 99.0 01/24/20 23:20 2.0 Physical Exam PHYSICAL EXAM Hands on exam deferred. see PCP/pulm assessment Visually, patient is propped up in bed, alert in NAD Breathing is nonlabored Heart rhythm regular No gross swelling lower extremities bilaterally PIV Labs Lab Laboratory Tests Test 01/24/20 16:29 01/24/20 21:13 01/25/20 05:00 01/25/20 07:33 Glucose (Fingerstick) 94 mg/dL (70-99) 110 mg/dL (70-99) 113 mg/dL (70-99) White Blood Count 8.4 x10^3/uL (4.0-11.0) Red Blood Count 4.70 x10^6/uL (3.50-5.40) Hemoglobin 12.1 g/dL (12.0-15.5) Hematocrit 37.0 % (36.0-47.0) Mean Corpuscular Volume 79 fL (79-100) Mean Corpuscular Hemoglobin 26 pg (25-35) Mean Corpuscular Hemoglobin Concent 33 g/dL (31-37) Red Cell Distribution Width 14.3 % (11.5-14.5) Platelet Count 195 x10^3/uL (140-400) Neutrophils (%) (Auto) 81 % (31-73) Lymphocytes (%) (Auto) 12 % (24-48) Monocytes (%) (Auto) 6 % (0-9) Eosinophils (%) (Auto) 0 % (0-3) Basophils (%) (Auto) 0 % (0-3) Neutrophils # (Auto) 6.8 x10^3/uL (1.8-7.7) Lymphocytes # (Auto) 1.0 x10^3/uL (1.0-4.8) Monocytes # (Auto) 0.5 x10^3/uL (0.0-1.1) Eosinophils # (Auto) 0.0 x10^3/uL (0.0-0.7) Basophils # (Auto) 0.0 x10^3/uL (0.0-0.2) Sodium Level 143 mmol/L (136-145) Potassium Level 3.0 mmol/L (3.5-5.1) Chloride Level 104 mmol/L (98-107) Carbon Dioxide Level 27 mmol/L (21-32) Anion Gap 12 (6-14) Blood Urea Nitrogen 11 mg/dL (7-20) Creatinine 1.0 mg/dL (0.6-1.0) Estimated GFR (Cockcroft-Gault) 65.2 BUN/Creatinine Ratio 11 (6-20) Glucose Level 115 mg/dL (70-99) Calcium Level 8.3 mg/dL (8.5-10.1) Total Bilirubin 0.4 mg/dL (0.2-1.0) Aspartate Amino Transf (AST/SGOT) 230 U/L (15-37) Alanine Aminotransferase (ALT/SGPT) 313 U/L (14-59) Alkaline Phosphatase 61 U/L (46-116) Total Protein 6.8 g/dL (6.4-8.2) Albumin 2.4 g/dL (3.4-5.0) Albumin/Globulin Ratio 0.5 (1.0-1.7) Test 01/25/20 10:54 Glucose (Fingerstick) 107 mg/dL (70-99) Micro Microbiology 01/21/20 Blood Culture - Preliminary, Resulted NO GROWTH AFTER 3 DAYS Objective Assessment Pneumonia. Strep pneumonia UR Ag positive Acute SARS-CoV-2 Transaminitis Coronary artery disease. Diabetes. Hypertension. Plan Plan of Care Continue Rocephin Continue Plaquenil Azithromycin thru today Probiotics BC neg to date am labs Airborne isolation for + COVID-19 Attending Co-Sign Visual exam done. The chart was reviewed. The case was discussed. Agree with the plan of care. LORENA GARRISON [employer] Jan 25, 2020 12:47 JARED GAMBOA MD Jan 25, 2020 13:04
[2020-01-25] MEDS ORDERED: cefTRIAXone IV Push 1 GM VIAL. IVP SCH (14:00)
[2020-01-25] MEDS: AZITHROMYCIN 250 MG in IV NORMAL SALINE 250ML 250 ML IV SCH (14:45)
[2020-01-25] MEDS: ENOXAPARIN 40 MG/0.4 ML SYRINGE. SQ SCH (14:46)
[2020-01-25] MEDS: SIMVASTATIN 40 MG TABLET. PO SCH (20:29)
[2020-01-26 03:00] VITALS: BP 210/91
[2020-01-26] MEDS: LABETALOL 20 MG/4 ML DISP.SYRIN. IVP PRN ×2 (03:26→23:25)
[2020-01-26 05:01] LABS: ALBUMIN 2.5 g/dL (3.4-5.0); ALBUMIN/GLOBULIN RATIO 0.6 (1.0-1.7); CALCIUM 8.7 mg/dL (8.5-10.1); CREATININE 0.9 mg/dL (0.6-1.0); GFR 73.7; POTASSIUM 3.3 mmol/L (3.5-5.1); TOTAL BILIRUBIN 0.5 mg/dL (0.2-1.0); TOTAL PROTEIN 6.9 g/dL (6.4-8.2)
[2020-01-26 07:00] VITALS: BP 203/91
[2020-01-26] MEDS: INSULIN LISPRO 300 UNITS/3 ML VIAL. SQ SCH ×3 (08:00→17:00)
[2020-01-26] MEDS: LISINOPRIL 20 MG TABLET PO SCH (08:23)
[2020-01-26] MEDS: ASPIRIN ENTERIC COATED 81 MG TABLET.DR. PO SCH (08:23)
[2020-01-26] MEDS: HYDROXYCHLOROQUINE (PROGRAM) 200 MG TABLET PO SCH ×2 (08:23→21:07)
[2020-01-26] MEDS: metFORMIN XR 500 MG TAB.ER.24H PO SCH (08:23)
[2020-01-26] MEDS: cloNIDine HCL 0.2 MG TABLET PO SCH (08:24)
[2020-01-26] MEDS: LACTOBACILLUS RHAMNOSUS GG 1 CAPSULE. PO SCH ×2 (08:24→21:07)
[2020-01-26] MEDS: CLOPIDOGREL BISULFATE 75 MG TABLET PO SCH (08:24)
[2020-01-26] MEDS: METOPROLOL TART IMMED RELEASE 50 MG TABLET. PO SCH ×2 (08:24→21:19)
--- NOTE | 2020-01-26 09:52 | PDOC ---
PROGRESS NOTES Subjective Subjective feels better improving Objective Objective Vital Signs Date Time Temp Pulse Resp B/P (MAP) Pulse Ox O2 Delivery O2 Flow Rate FiO2 01/26/20 08:24 98 203/91 01/26/20 07:00 97.1 22 95 Nasal Cannula 2.0 97.1 Intake and Output 01/26/20 07:00 Intake Total 920 ml Output Total 251 ml Balance 669 ml Intake Oral 920 ml Output Urine Total 251 ml # Bowel Movements 1 Physical Exam Abdomen: Soft Heart: Regular rate, Normal S1, Normal S2 Extremities: No clubbing, No edema General: Oriented X3, mild distress HEENT: Atraumatic, PERRLA Lungs: Other (Decreased breath breath sounds on right base, no wheezing) MUSCULOSKELETAL: No deformity Neck: Supple Neuro: Normal speech Psych/Mental Status: Mental status NL Skin: No breakdown Diagnosis Problem List Problems Medical Problems: (1) Pneumonia Status: Acute Assessment Assessment Problems Medical Problems: (1) Pneumonia Status: Acute Assessment/Plan Impression:Positive COVID-19 infection, fevers with pneumonia 1. Fever with chills Positive COVID -19, 2. Right lower lobe infiltration possible pneumonia. 3. Hypokalemia. 4. Mild renal sufficiency. 5. History of coronary disease stable. 6. Hypertension accelerated. 7. Mild elevated liver function test. 8. Diabetes 9. Hyperlipidemia 10 .ede LFT Plan: Strep pneumonia antigen positive in urine. Dec slightly in LFT .. positive test for COVID-19. Acute hepatitis neg. replace pot,po 3.3 d/c iv fluids. completed zithromax+plaquenil today on Rocephin ,change to PO. SN[facility] screen Plan Plan of Care Problems Medical Problems: (1) Pneumonia Status: Acute Comment Review of Relevant I have reviewed the following items tim (where applicable) has been applied. Labs Laboratory Tests Test 01/25/20 10:54 01/25/20 17:05 01/25/20 21:51 01/26/20 04:00 Glucose (Fingerstick) 107 mg/dL (70-99) 117 mg/dL (70-99) 127 mg/dL (70-99) Sodium Level 145 mmol/L (136-145) Potassium Level 3.3 mmol/L (3.5-5.1) Chloride Level 106 mmol/L (98-107) Carbon Dioxide Level 25 mmol/L (21-32) Anion Gap 14 (6-14) Blood Urea Nitrogen 11 mg/dL (7-20) Creatinine 0.9 mg/dL (0.6-1.0) Estimated GFR (Cockcroft-Gault) 73.7 BUN/Creatinine Ratio 12 (6-20) Glucose Level 127 mg/dL (70-99) Calcium Level 8.7 mg/dL (8.5-10.1) Total Bilirubin 0.5 mg/dL (0.2-1.0) Aspartate Amino Transf (AST/SGOT) 135 U/L (15-37) Alanine Aminotransferase (ALT/SGPT) 264 U/L (14-59) Alkaline Phosphatase 61 U/L (46-116) Total Protein 6.9 g/dL (6.4-8.2) Albumin 2.5 g/dL (3.4-5.0) Albumin/Globulin Ratio 0.6 (1.0-1.7) Test 01/26/20 07:40 Glucose (Fingerstick) 129 mg/dL (70-99) Microbiology 01/21/20 Blood Culture - Preliminary, Resulted NO GROWTH AFTER 4 DAYS Medications Current Medications Ceftriaxone Sodium (Rocephin) 1 gm Q24H IVP Last administered on 01/25/20at 14:46; Start 01/25/20 at 14:00; Stop 01/25/20 at 14:01; Status DC Ceftriaxone Sodium (Rocephin) 2 gm Q24H IVP ; Start 01/26/20 at 13:00 Potassium Chloride (Klor-Con) 20 meq 1X ONCE PO Last administered on 01/25/20at 14:45; Start 01/25/20 at 12:30; Stop 01/25/20 at 12:31; Status DC Potassium Chloride (Klor-Con) 40 meq 1X ONCE PO Last administered on 01/25/20at 12:31; Start 01/25/20 at 10:30; Stop 01/25/20 at 10:31; Status DC Vitals/I & O Vital Sign - Last 24 Hours 01/25/20 01/25/20 01/25/20 01/25/20 09:51 09:54 11:34 15:00 Temp 99.0 98.2 99.0 98.2 Pulse 97 97 80 79 Resp 20 26 B/P (MAP) 189/79 189/79 141/64 (89) 159/72 (101) Pulse Ox 97 98 O2 Delivery Room Air Room Air 01/25/20 01/25/20 01/25/20 01/25/20 19:35 20:19 20:30 23:00 Temp 98.3 98.6 98.3 98.6 Pulse 82 78 76 Resp 20 20 B/P (MAP) 180/79 (112) 180/79 185/84 (117) Pulse Ox 96 97 O2 Delivery Nasal Cannula Nasal Cannula Nasal Cannula O2 Flow Rate 2.0 2.0 2.0 01/25/20 01/26/20 01/26/20 01/26/20 23:28 03:00 03:26 07:00 Temp 97.8 97.1 97.8 97.1 Pulse 76 93 92 98 Resp 20 22 B/P (MAP) 185/84 210/91 (130) 210/91 203/91 (128) Pulse Ox 94 95 O2 Delivery Nasal Cannula Nasal Cannula O2 Flow Rate 2.0 2.0 01/26/20 01/26/20 01/26/20 08:23 08:24 08:24 Pulse 98 98 98 B/P (MAP) 203/91 203/91 203/91 Intake and Output 01/25/20 01/25/20 01/26/20 15:00 23:00 07:00 Intake Total 120 ml 600 ml 200 ml Output Total 1 ml 250 ml Balance 119 ml 600 ml -50 ml Hemodynamically unstable?: No Respiratory Distress?: Yes Justification for admission: COVID -19, pneumonia, CAd ,DM Serious Diagnosis?: Yes Is patient at high risk?: Yes ISABELA LOPEZ MD Jan 26, 2020 09:52
[2020-01-26] MEDS ORDERED: POTASSIUM CHLORIDE 20 MEQ TABLET.ER. PO ONE (10:00)
--- NOTE | 2020-01-26 10:37 | PDOC ---
Infectious Disease Note Subjective: Subjective Pt feels somewhat better today still has fatigue Denies worsening SOA or cough Occ phlegm appetite is getting better slowly, Remains on 2L O2 Denies N/V/D Vital Signs: Vital Signs Vital Signs Date Time Temp Pulse Resp B/P (MAP) Pulse Ox O2 Delivery O2 Flow Rate FiO2 01/26/20 08:24 98 203/91 01/26/20 07:00 97.1 22 95 Nasal Cannula 2.0 97.1 Physical Exam: PHYSICAL EXAM Hands on exam deferred. see PCP/pulm assessment Visually, patient is propped up in bed, alert in NAD Breathing is nonlabored Heart rhythm regular No gross swelling lower extremities bilaterally PIV Medications: Inpatient Meds: Current Medications Medications (Trade) Dose Ordered Sig/Christiane Start Time Stop Time Status Last Admin Dose Admin Acetaminophen (Tylenol) 650 mg PRN Q6HRS PRN 01/21/20 22:45 01/25/20 20:29 650 MG Aspirin (Ecotrin) 81 mg DAILY 01/22/20 09:00 01/26/20 08:23 81 MG Azithromycin 250 ml @ 250 mls/hr 1X ONCE 01/21/20 13:45 01/21/20 14:44 DC 01/21/20 15:15 250 MLS/HR Azithromycin 250 mg/Sodium Chloride 250 ml @ 250 mls/hr Q24H 01/22/20 14:00 01/25/20 14:01 DC 01/25/20 14:45 250 MLS/HR Ceftriaxone Sodium (Rocephin) 1 gm Q24H 01/25/20 14:00 01/25/20 14:01 DC 01/25/20 14:46 1 GM Clonidine HCl (Catapres) 0.2 mg DAILY 01/22/20 09:00 01/26/20 08:24 0.2 MG Clopidogrel Bisulfate (Plavix) 75 mg DAILY 01/22/20 09:00 01/26/20 08:24 75 MG Dextrose (Dextrose 50%-Water Syringe) 12.5 gm PRN Q15MIN PRN 01/21/20 15:00 Dextrose (Iv Dextrose 5%) 250 ml PRN Q15MIN PRN 01/21/20 15:00 Enoxaparin Sodium (Lovenox 40mg Syringe) 40 mg Q24H 01/22/20 14:00 01/25/20 14:46 40 MG Hydralazine HCl (Apresoline Inj) 10 mg PRN Q4HRS PRN 01/21/20 22:15 01/25/20 23:28 10 MG Hydralazine HCl (Apresoline) 50 mg TID 01/26/20 14:00 Hydrochlorothiazide (Microzide) 12.5 mg DAILY 01/22/20 09:00 01/24/20 11:30 DC 01/24/20 08:29 12.5 MG Hydroxychloroquine Sulfate (Plaquenil (Med Program)) 200 mg BID 01/23/20 09:00 01/26/20 21:01 01/26/20 08:23 200 MG Hydroxychloroquine Sulfate (Plaquenil) 400 mg BID 01/22/20 12:00 01/22/20 21:01 DC 01/22/20 19:45 400 MG Insulin Human Lispro (HumaLOG) 0-5 UNITS TIDWMEALS 01/21/20 17:00 Labetalol HCl (Normodyne Iv Push) 15 mg PRN Q2HR PRN 01/24/20 11:30 01/26/20 03:26 15 MG Lactobacillus Rhamnosus (Culturelle) 1 cap BID 01/22/20 21:00 01/26/20 08:24 1 CAP Lisinopril (Prinivil) 40 mg DAILY 01/22/20 09:00 01/26/20 08:23 40 MG Metformin HCl (Glucophage Xr) 500 mg DAILYWBKFT 01/22/20 08:00 01/26/20 08:23 500 MG Metoprolol Tartrate (Lopressor) 100 mg BID 01/21/20 21:00 01/26/20 08:24 100 MG Ondansetron HCl (Zofran) 8 mg PRN Q6HRS PRN 01/25/20 04:30 Potassium Chloride/Dextrose/ Sod Cl 1,000 ml @ 75 mls/hr [id number] 01/21/20 22:15 01/24/20 11:30 DC 01/23/20 23:37 75 MLS/HR Potassium Chloride (Klor-Con) 20 meq DAILY ONCE 01/27/20 09:00 01/27/20 09:01 Simvastatin (Zocor) 40 mg QHS 01/21/20 21:00 01/25/20 20:29 40 MG Labs: Lab Laboratory Tests Test 01/25/20 10:54 01/25/20 17:05 01/25/20 21:51 01/26/20 04:00 Glucose (Fingerstick) 107 mg/dL (70-99) 117 mg/dL (70-99) 127 mg/dL (70-99) Sodium Level 145 mmol/L (136-145) Potassium Level 3.3 mmol/L (3.5-5.1) Chloride Level 106 mmol/L (98-107) Carbon Dioxide Level 25 mmol/L (21-32) Anion Gap 14 (6-14) Blood Urea Nitrogen 11 mg/dL (7-20) Creatinine 0.9 mg/dL (0.6-1.0) Estimated GFR (Cockcroft-Gault) 73.7 BUN/Creatinine Ratio 12 (6-20) Glucose Level 127 mg/dL (70-99) Calcium Level 8.7 mg/dL (8.5-10.1) Total Bilirubin 0.5 mg/dL (0.2-1.0) Aspartate Amino Transf (AST/SGOT) 135 U/L (15-37) Alanine Aminotransferase (ALT/SGPT) 264 U/L (14-59) Alkaline Phosphatase 61 U/L (46-116) Total Protein 6.9 g/dL (6.4-8.2) Albumin 2.5 g/dL (3.4-5.0) Albumin/Globulin Ratio 0.6 (1.0-1.7) Test 01/26/20 07:40 Glucose (Fingerstick) 129 mg/dL (70-99) Objective: Assessment: Pneumonia. Strep pneumonia UR Ag positive Acute SARS-CoV-2 Transaminitis Coronary artery disease. Diabetes. Hypertension. Plan: Plan of Care Continue Rocephin Continue Plaquenil Azithromycin completed Probiotics BC neg to date Airborne isolation for + COVID-19 JARED GAMBOA MD Jan 26, 2020 10:37
[2020-01-26 11:00] VITALS: BP 194/89
--- NOTE | 2020-01-26 11:24 | RAD ---
Chest AP portable at 1104: Reason for examination: Follow-up pneumonia. Comparison is made to previous study dated 01/21/2020. The heart size is normal. Mediastinum is unremarkable. Lung larkin show persistent infiltrates in the right lower lobe distribution which are unchanged. There appears to be some mild increase in the infiltrates at the left lung base. There is obscuring of the left costophrenic angle which may reflect a small pleural effusion. No pneumothorax is. No acute bony abnormalities are seen. Postop changes seen at the base of the cervical spine. IMPRESSION: Persistent right lower lobe infiltrates without significant change. Mild increase in the left lower lobe infiltrates with possibly a small left pleural effusion. Electronically signed by: Karen Ramirez MD (01/26/2020 11:21 AM) [id number]
--- NOTE | 2020-01-26 11:36 | PDOC ---
Objective: Objective: D/w nurse - no GI concerns. Vital Signs: Vital Signs Date Time Temp Pulse Resp B/P (MAP) Pulse Ox O2 Delivery O2 Flow Rate FiO2 01/26/20 08:24 98 203/91 01/26/20 08:00 Nasal Cannula 2.0 01/26/20 07:00 97.1 22 95 97.1 Labs: Laboratory Tests Test 01/25/20 17:05 01/25/20 21:51 01/26/20 04:00 01/26/20 07:40 Glucose (Fingerstick) 117 mg/dL 127 mg/dL 129 mg/dL Sodium Level 145 mmol/L Potassium Level 3.3 mmol/L Chloride Level 106 mmol/L Carbon Dioxide Level 25 mmol/L Anion Gap 14 Blood Urea Nitrogen 11 mg/dL Creatinine 0.9 mg/dL Estimated GFR (Cockcroft-Gault) 73.7 BUN/Creatinine Ratio 12 Glucose Level 127 mg/dL Calcium Level 8.7 mg/dL Total Bilirubin 0.5 mg/dL Aspartate Amino Transf (AST/SGOT) 135 U/L Alanine Aminotransferase (ALT/SGPT) 264 U/L Alkaline Phosphatase 61 U/L Total Protein 6.9 g/dL Albumin 2.5 g/dL Albumin/Globulin Ratio 0.6 BLOOD CULTURE Preliminary NO GROWTH AFTER 4 DAYS Imaging: CXR 01/25 IMPRESSION: Persistent right lower lobe infiltrates without significant change. Mild increase in the left lower lobe infiltrates with possibly a small left pleural effusion. PE: deferred A/P: Pneumonia - strep pneumo, +COVID-19 Elevated AST and ALT - better, viral Hep negative, US on hold HTN -- Continue same per GI. Hemodynamically unstable?: No Is patient in severe pain?: No Is NPO status required?: No CHARLOTTE-DEANNE MENDOZA Jan 26, 2020 11:36
--- NOTE | 2020-01-26 11:41 | PDOC ---
PULMONARY PROGRESS NOTES Subjective reports SOA on exertion, no increased cough Remains on N/C oxygen, a-febrile Vitals Vital Signs Date Time Temp Pulse Resp B/P (MAP) Pulse Ox O2 Delivery O2 Flow Rate FiO2 01/26/20 08:24 98 203/91 01/26/20 08:00 Nasal Cannula 2.0 01/26/20 07:00 97.1 22 95 97.1 Comments visual exam done no soa, on canula no rash no leg edema General: Alert, No acute distress Labs Laboratory Tests Test 01/24/20 16:29 01/24/20 21:13 01/25/20 05:00 01/25/20 07:33 Glucose (Fingerstick) 94 mg/dL (70-99) 110 mg/dL (70-99) 113 mg/dL (70-99) White Blood Count 8.4 x10^3/uL (4.0-11.0) Red Blood Count 4.70 x10^6/uL (3.50-5.40) Hemoglobin 12.1 g/dL (12.0-15.5) Hematocrit 37.0 % (36.0-47.0) Mean Corpuscular Volume 79 fL (79-100) Mean Corpuscular Hemoglobin 26 pg (25-35) Mean Corpuscular Hemoglobin Concent 33 g/dL (31-37) Red Cell Distribution Width 14.3 % (11.5-14.5) Platelet Count 195 x10^3/uL (140-400) Neutrophils (%) (Auto) 81 % (31-73) Lymphocytes (%) (Auto) 12 % (24-48) Monocytes (%) (Auto) 6 % (0-9) Eosinophils (%) (Auto) 0 % (0-3) Basophils (%) (Auto) 0 % (0-3) Neutrophils # (Auto) 6.8 x10^3/uL (1.8-7.7) Lymphocytes # (Auto) 1.0 x10^3/uL (1.0-4.8) Monocytes # (Auto) 0.5 x10^3/uL (0.0-1.1) Eosinophils # (Auto) 0.0 x10^3/uL (0.0-0.7) Basophils # (Auto) 0.0 x10^3/uL (0.0-0.2) Sodium Level 143 mmol/L (136-145) Potassium Level 3.0 mmol/L (3.5-5.1) Chloride Level 104 mmol/L (98-107) Carbon Dioxide Level 27 mmol/L (21-32) Anion Gap 12 (6-14) Blood Urea Nitrogen 11 mg/dL (7-20) Creatinine 1.0 mg/dL (0.6-1.0) Estimated GFR (Cockcroft-Gault) 65.2 BUN/Creatinine Ratio 11 (6-20) Glucose Level 115 mg/dL (70-99) Calcium Level 8.3 mg/dL (8.5-10.1) Total Bilirubin 0.4 mg/dL (0.2-1.0) Aspartate Amino Transf (AST/SGOT) 230 U/L (15-37) Alanine Aminotransferase (ALT/SGPT) 313 U/L (14-59) Alkaline Phosphatase 61 U/L (46-116) Total Protein 6.8 g/dL (6.4-8.2) Albumin 2.4 g/dL (3.4-5.0) Albumin/Globulin Ratio 0.5 (1.0-1.7) Test 01/25/20 10:54 01/25/20 17:05 01/25/20 21:51 01/26/20 04:00 Glucose (Fingerstick) 107 mg/dL (70-99) 117 mg/dL (70-99) 127 mg/dL (70-99) Sodium Level 145 mmol/L (136-145) Potassium Level 3.3 mmol/L (3.5-5.1) Chloride Level 106 mmol/L (98-107) Carbon Dioxide Level 25 mmol/L (21-32) Anion Gap 14 (6-14) Blood Urea Nitrogen 11 mg/dL (7-20) Creatinine 0.9 mg/dL (0.6-1.0) Estimated GFR (Cockcroft-Gault) 73.7 BUN/Creatinine Ratio 12 (6-20) Glucose Level 127 mg/dL (70-99) Calcium Level 8.7 mg/dL (8.5-10.1) Total Bilirubin 0.5 mg/dL (0.2-1.0) Aspartate Amino Transf (AST/SGOT) 135 U/L (15-37) Alanine Aminotransferase (ALT/SGPT) 264 U/L (14-59) Alkaline Phosphatase 61 U/L (46-116) Total Protein 6.9 g/dL (6.4-8.2) Albumin 2.5 g/dL (3.4-5.0) Albumin/Globulin Ratio 0.6 (1.0-1.7) Test 01/26/20 07:40 Glucose (Fingerstick) 129 mg/dL (70-99) Laboratory Tests Test 01/25/20 17:05 01/25/20 21:51 01/26/20 04:00 01/26/20 07:40 Glucose (Fingerstick) 117 mg/dL (70-99) 127 mg/dL (70-99) 129 mg/dL (70-99) Sodium Level 145 mmol/L (136-145) Potassium Level 3.3 mmol/L (3.5-5.1) Chloride Level 106 mmol/L (98-107) Carbon Dioxide Level 25 mmol/L (21-32) Anion Gap 14 (6-14) Blood Urea Nitrogen 11 mg/dL (7-20) Creatinine 0.9 mg/dL (0.6-1.0) Estimated GFR (Cockcroft-Gault) 73.7 BUN/Creatinine Ratio 12 (6-20) Glucose Level 127 mg/dL (70-99) Calcium Level 8.7 mg/dL (8.5-10.1) Total Bilirubin 0.5 mg/dL (0.2-1.0) Aspartate Amino Transf (AST/SGOT) 135 U/L (15-37) Alanine Aminotransferase (ALT/SGPT) 264 U/L (14-59) Alkaline Phosphatase 61 U/L (46-116) Total Protein 6.9 g/dL (6.4-8.2) Albumin 2.5 g/dL (3.4-5.0) Albumin/Globulin Ratio 0.6 (1.0-1.7) Medications Active Scripts Medications Dose Route/Sig Max Daily Dose Days Date Category Hydrochlorothiazide Tablet (Hydrochlorothiazide) 12.5 Mg Tablet 12.5 Mg PO DAILY 03/30/14 Reported Clopidogrel (Clopidogrel Bisulfate) 75 Mg Tablet 75 Mg PO DAILY 03/30/14 Reported Enalapril Maleate 20 Mg Tablet 20 Mg PO DAILY 03/30/14 Reported Metoprolol Tartrate 100 Mg Tablet 100 Mg PO BID 03/30/14 Reported Simvastatin 40 Mg Tablet 40 Mg PO DAILY 03/30/14 Reported Clonidine Hcl 0.2 Mg Tablet 0.2 Mg PO DAILY 03/30/14 Reported Calcium 500 + D Tablet (Calcium Carbonate/Vitamin D3) 1 Each Tablet 1 Each PO 03/30/14 Reported Daily Vitamin (Multivitamin) 1 Each Tablet 1 Each PO 03/30/14 Reported Aspir 81 (Aspirin) 81 Mg Tablet.dr 81 Mg PO 03/30/14 Reported Metformin Hcl Er (Metformin Hcl) 500 Mg Tab.er.24h 500 Mg PO DAILYWBKFT 03/30/14 Reported Impression . Acute hypoxic respiratory failure- improving Fever-resolved Right lower lobe pneumonia, COVID-19 pneumonia. Abnormal chest x-ray with right lower lobe pneumonia, COVID -19 + No significant tobacco history Hypokalemia HTN Plan . Continue with present oxygen to keep saturation 92 and above. Continue broad-spectrum antibiotics including azithromycin and cont. Plaquenil. for 5 days We will follow the clinical course. Follow Infectious Disease recommendation. Discussed with RN. DVT/GI PPX CASH TREJO MD Jan 26, 2020 11:41
[2020-01-26] MEDS: ACETAMINOPHEN 325 MG TABLET. PO PRN (13:27)
[2020-01-26] MEDS: ENOXAPARIN 40 MG/0.4 ML SYRINGE. SQ SCH (14:05)
[2020-01-26] MEDS: cefTRIAXone IV Push 2 GM VIAL. IVP SCH (14:05)
[2020-01-26 15:00] VITALS: BP 168/77
[2020-01-26 19:10] VITALS: BP 221/102
[2020-01-26] MEDS: hydrALAZINE 20 MG/ML VIAL. IVP PRN (19:23)
[2020-01-26] MEDS: SIMVASTATIN 40 MG TABLET. PO SCH (21:07)
[2020-01-26 23:10] VITALS: BP 218/91
[2020-01-27] MEDS: hydrALAZINE 20 MG/ML VIAL. IVP PRN ×4 (01:27→19:23)
[2020-01-27] MEDS: LABETALOL 20 MG/4 ML DISP.SYRIN. IVP PRN ×3 (01:27→23:38)
[2020-01-27 03:39] VITALS: BP 178/77
[2020-01-27 07:00] VITALS: BP 227/93
[2020-01-27] MEDS: INSULIN LISPRO 300 UNITS/3 ML VIAL. SQ SCH ×3 (07:54→17:00)
[2020-01-27] MEDS: metFORMIN XR 500 MG TAB.ER.24H PO SCH (08:33)
[2020-01-27] MEDS: ASPIRIN ENTERIC COATED 81 MG TABLET.DR. PO SCH (08:33)
[2020-01-27] MEDS: CLOPIDOGREL BISULFATE 75 MG TABLET PO SCH (08:34)
[2020-01-27] MEDS: METOPROLOL TART IMMED RELEASE 50 MG TABLET. PO SCH ×2 (08:34→20:47)
[2020-01-27] MEDS: LISINOPRIL 20 MG TABLET PO SCH (08:35)
[2020-01-27] MEDS: LACTOBACILLUS RHAMNOSUS GG 1 CAPSULE. PO SCH ×2 (08:35→20:46)
[2020-01-27] MEDS: cloNIDine HCL 0.2 MG TABLET PO SCH (08:36)
[2020-01-27] MEDS: ENOXAPARIN 40 MG/0.4 ML SYRINGE. SQ SCH (08:37)
[2020-01-27] MEDS ORDERED: POTASSIUM CHLORIDE 20 MEQ TABLET.ER. PO ONE (09:00)
--- NOTE | 2020-01-27 10:00 | PDOC ---
Objective: Objective: D/w nurse - doing much better, no GI concerns. Possibility to DC soon but will need rehab or similar. and son also +COVID-19. Vital Signs: Vital Signs Date Time Temp Pulse Resp B/P (MAP) Pulse Ox O2 Delivery O2 Flow Rate FiO2 01/27/20 08:36 99 227/93 01/27/20 07:00 98.7 20 92 Nasal Cannula 2.0 98.7 Labs: Laboratory Tests Test 01/26/20 12:15 01/26/20 17:47 01/26/20 23:11 01/27/20 07:42 Glucose (Fingerstick) 127 mg/dL 126 mg/dL 136 mg/dL 120 mg/dL PE: deferred A/P: Pneumonia - strep pneumo, +COVID-19 Elevated AST and ALT - better (checked yesterday), US not done due to being in isolation HTN -- Continue support. Hemodynamically unstable?: No Is patient in severe pain?: No Is NPO status required?: No DEANNE DIANA Jan 27, 2020 10:00
--- NOTE | 2020-01-27 10:18 | PDOC ---
PROGRESS NOTES Subjective Subjective clinically doing better Objective Objective Vital Signs Date Time Temp Pulse Resp B/P (MAP) Pulse Ox O2 Delivery O2 Flow Rate FiO2 01/27/20 08:36 99 227/93 01/27/20 08:00 Nasal Cannula 2.0 01/27/20 07:00 98.7 20 92 98.7 Intake and Output 01/27/20 07:00 Intake Total 800 ml Output Total 200 ml Balance 600 ml Intake Oral 800 ml Output Urine Total 200 ml # Voids 6 # Bowel Movements 1 Physical Exam Abdomen: Soft Heart: Regular rate, Normal S1, Normal S2 Extremities: No clubbing, No edema General: Oriented X3, mild distress HEENT: Atraumatic, PERRLA Lungs: Other (Decreased breath breath sounds on right base, no wheezing) MUSCULOSKELETAL: No deformity Neck: Supple Neuro: Normal speech Psych/Mental Status: Mental status NL Skin: No breakdown Diagnosis Problem List Problems Medical Problems: (1) Pneumonia Status: Acute Assessment Assessment Problems Medical Problems: (1) Pneumonia Status: Acute Assessment/Plan :Positive COVID-19 infection, fevers with pneumonia 1. Fever with chills Positive COVID -19, 2. Right lower lobe infiltration possible pneumonia. 3. Hypokalemia. 4. Mild renal sufficiency. 5. History of coronary disease stable. 6. Hypertension accelerated. 7. Mild elevated liver function test. 8. Diabetes 9. Hyperlipidemia 10 .ede LFT Plan:? SNU screen. social service consult for discharge. cxr marychuy pneumonia Strep pneumonia antigen positive in urine. Dec slightly in LFT .. positive test for COVID-19. Acute hepatitis neg. replace pot,po 3.3 d/c iv fluids. completed zithromax+plaquenil today on Rocephin ,change to PO. SNU screen Plan Plan of Care Problems Medical Problems: (1) Pneumonia Status: Acute Comment Review of Relevant I have reviewed the following items tim (where applicable) has been applied. Labs Laboratory Tests Test 01/26/20 12:15 01/26/20 17:47 01/26/20 23:11 01/27/20 07:42 Glucose (Fingerstick) 127 mg/dL (70-99) 126 mg/dL (70-99) 136 mg/dL (70-99) 120 mg/dL (70-99) Microbiology 01/21/20 Blood Culture - Final, Complete NO GROWTH AFTER 5 DAYS Medications Current Medications Ceftriaxone Sodium (Rocephin) 2 gm Q24H IVP Last administered on 01/26/20at 14:05; Start 01/26/20 at 13:00 Hydralazine HCl (Apresoline) 50 mg TID PO Last administered on 01/27/20at 08:35; Start 01/26/20 at 14:00 Potassium Chloride (Klor-Con) 20 meq DAILY ONCE PO Last administered on 01/27/20at 08:34; Start 01/27/20 at 09:00; Stop 01/27/20 at 09:01; Status DC Vitals/I & O Vital Sign - Last 24 Hours 01/26/20 01/26/20 01/26/20 01/26/20 11:00 13:03 15:00 19:10 Temp 97.9 97.9 97.3 97.9 97.9 97.3 Pulse 87 87 86 100 Resp 28 22 16 B/P (MAP) 194/89 (124) 194/89 168/77 (107) 221/102 (141) Pulse Ox 90 93 98 O2 Delivery Nasal Cannula Nasal Cannula Nasal Cannula O2 Flow Rate 2.0 2.0 2.0 01/26/20 01/26/20 01/26/20 01/26/20 19:23 20:18 21:19 21:20 Pulse 95 104 104 B/P (MAP) 221/102 216/93 216/93 O2 Delivery Nasal Cannula O2 Flow Rate 2.0 01/26/20 01/26/20 01/27/20 01/27/20 23:10 23:25 01:27 01:27 Temp 98.3 98.3 Pulse 85 85 90 90 Resp 16 B/P (MAP) 218/91 (133) 218/91 216/93 216/93 Pulse Ox 96 O2 Delivery Nasal Cannula O2 Flow Rate 2.0 01/27/20 01/27/20 01/27/20 01/27/20 03:39 05:01 07:00 08:00 Temp 98.5 98.7 98.5 98.7 Pulse 97 97 Resp 16 20 B/P (MAP) 178/77 (110) 178/77 227/93 (137) Pulse Ox 99 92 O2 Delivery Nasal Cannula Nasal Cannula Nasal Cannula O2 Flow Rate 2.0 2.0 2.0 01/27/20 01/27/20 01/27/20 01/27/20 08:34 08:35 08:35 08:36 Pulse 99 99 99 99 B/P (MAP) //93 227/93 227/93 01/27/20 08:36 Pulse 99 B/P (MAP) / Intake and Output 01/26/20 01/26/20 01/27/20 15:00 23:00 07:00 Intake Total 250 ml 550 ml Output Total 200 ml Balance 250 ml 550 ml -200 ml Hemodynamically unstable?: No Respiratory Distress?: Yes Justification for admission: COVID -19, pneumonia, CAd ,DM Serious Diagnosis?: Yes Is patient at high risk?: Yes Hemodynamically unstable?: No Is patient in severe pain?: No Is NPO status required?: No ISABELA LOPEZ MD Jan 27, 2020 10:18
--- NOTE | 2020-01-27 11:01 | PDOC ---
Infectious Disease Note Subjective: Subjective Pt feels ok still feels tired Denies worsening SOA or coug appetite is getting better Remains on 2L O2 Denies N/V/D BP meds adjusted Vital Signs: Vital Signs Vital Signs Date Time Temp Pulse Resp B/P (MAP) Pulse Ox O2 Delivery O2 Flow Rate FiO2 01/27/20 08:36 99 227/93 01/27/20 08:00 Nasal Cannula 2.0 01/27/20 07:00 98.7 20 92 98.7 Physical Exam: PHYSICAL EXAM Hands on exam deferred. see PCP/pulm assessment Visually, patient is propped up in bed, alert in NAD Breathing is nonlabored Heart rhythm regular No gross swelling lower extremities bilaterally PIV Medications: Inpatient Meds: Current Medications Medications (Trade) Dose Ordered Sig/Christiane Start Time Stop Time Status Last Admin Dose Admin Acetaminophen (Tylenol) 650 mg PRN Q6HRS PRN 01/21/20 22:45 01/26/20 13:27 650 MG Aspirin (Ecotrin) 81 mg DAILY 01/22/20 09:00 01/27/20 08:33 81 MG Azithromycin 250 ml @ 250 mls/hr 1X ONCE 01/21/20 13:45 01/21/20 14:44 DC 01/21/20 15:15 250 MLS/HR Azithromycin 250 mg/Sodium Chloride 250 ml @ 250 mls/hr Q24H 01/22/20 14:00 01/25/20 14:01 DC 01/25/20 14:45 250 MLS/HR Ceftriaxone Sodium (Rocephin) 1 gm Q24H 01/25/20 14:00 01/25/20 14:01 DC 01/25/20 14:46 1 GM Clonidine HCl (Catapres) 0.2 mg DAILY 01/22/20 09:00 01/27/20 08:36 0.2 MG Clopidogrel Bisulfate (Plavix) 75 mg DAILY 01/22/20 09:00 01/27/20 08:34 75 MG Dextrose (Dextrose 50%-Water Syringe) 12.5 gm PRN Q15MIN PRN 01/21/20 15:00 Dextrose (Iv Dextrose 5%) 250 ml PRN Q15MIN PRN 01/21/20 15:00 Enoxaparin Sodium (Lovenox 40mg Syringe) 40 mg Q24H 01/22/20 14:00 01/27/20 08:37 40 MG Hydralazine HCl (Apresoline Inj) 10 mg PRN Q4HRS PRN 01/21/20 22:15 01/27/20 08:36 10 MG Hydralazine HCl (Apresoline) 50 mg TID 01/26/20 14:00 01/27/20 08:35 50 MG Hydrochlorothiazide (Microzide) 12.5 mg DAILY 01/22/20 09:00 01/24/20 11:30 DC 01/24/20 08:29 12.5 MG Hydroxychloroquine Sulfate (Plaquenil (Med Program)) 200 mg BID 01/23/20 09:00 01/26/20 21:01 DC 01/26/20 21:07 200 MG Hydroxychloroquine Sulfate (Plaquenil) 400 mg BID 01/22/20 12:00 01/22/20 21:01 DC 01/22/20 19:45 400 MG Insulin Human Lispro (HumaLOG) 0-5 UNITS TIDWMEALS 01/21/20 17:00 Labetalol HCl (Normodyne Iv Push) 15 mg PRN Q2HR PRN 01/24/20 11:30 01/27/20 05:01 15 MG Lactobacillus Rhamnosus (Culturelle) 1 cap BID 01/22/20 21:00 01/27/20 08:35 1 CAP Lisinopril (Prinivil) 40 mg DAILY 01/22/20 09:00 01/27/20 08:35 40 MG Metformin HCl (Glucophage Xr) 500 mg DAILYWBKFT 01/22/20 08:00 01/27/20 08:33 500 MG Metoprolol Tartrate (Lopressor) 100 mg BID 01/21/20 21:00 01/27/20 08:34 100 MG Ondansetron HCl (Zofran) 8 mg PRN Q6HRS PRN 01/25/20 04:30 Potassium Chloride/Dextrose/ Sod Cl 1,000 ml @ 75 mls/hr [id number] 01/21/20 22:15 01/24/20 11:30 DC 01/23/20 23:37 75 MLS/HR Potassium Chloride (Klor-Con) 20 meq DAILY ONCE 01/27/20 09:00 4/7/20 09:01 DC 01/27/20 08:34 20 MEQ Simvastatin (Zocor) 40 mg QHS 01/21/20 21:00 01/26/20 21:07 40 MG Labs: Lab Laboratory Tests Test 01/26/20 12:15 01/26/20 17:47 01/26/20 23:11 01/27/20 07:42 Glucose (Fingerstick) 127 mg/dL (70-99) 126 mg/dL (70-99) 136 mg/dL (70-99) 120 mg/dL (70-99) Objective: Assessment: Pneumonia. Strep pneumonia Acute SARS-CoV-2 Transaminitis Coronary artery disease. Diabetes. Hypertension.uncontrolled Plan: Plan of Care Continue Rocephin Plaquenil and Azithromycin completed Probiotics BC neg to date Airborne isolation for + COVID-19 d/w JARED LOCKETT MD Jan 27, 2020 11:01
[2020-01-27 11:08] VITALS: BP 167/84
[2020-01-27] MEDS: cefTRIAXone IV Push 2 GM VIAL. IVP SCH (13:12)
[2020-01-27 14:49] VITALS: BP 169/74
--- NOTE | 2020-01-27 17:23 | PDOC ---
PULMONARY PROGRESS NOTES Subjective Patient not more short of air on 2 L of oxygen Vitals Vital Signs Date Time Temp Pulse Resp B/P (MAP) Pulse Ox O2 Delivery O2 Flow Rate FiO2 01/27/20 14:49 98.4 87 20 169/74 (105) 95 Nasal Cannula 2.0 98.4 General: Alert, No acute distress Lungs: Clear Cardiovascular: S1, S2 Abdomen: Soft Neuro Exam: Alert Extremities: No Edema Skin: Warm Labs Laboratory Tests Test 01/25/20 21:51 01/26/20 04:00 01/26/20 07:40 01/26/20 12:15 Glucose (Fingerstick) 127 mg/dL (70-99) 129 mg/dL (70-99) 127 mg/dL (70-99) Sodium Level 145 mmol/L (136-145) Potassium Level 3.3 mmol/L (3.5-5.1) Chloride Level 106 mmol/L (98-107) Carbon Dioxide Level 25 mmol/L (21-32) Anion Gap 14 (6-14) Blood Urea Nitrogen 11 mg/dL (7-20) Creatinine 0.9 mg/dL (0.6-1.0) Estimated GFR (Cockcroft-Gault) 73.7 BUN/Creatinine Ratio 12 (6-20) Glucose Level 127 mg/dL (70-99) Calcium Level 8.7 mg/dL (8.5-10.1) Total Bilirubin 0.5 mg/dL (0.2-1.0) Aspartate Amino Transf (AST/SGOT) 135 U/L (15-37) Alanine Aminotransferase (ALT/SGPT) 264 U/L (14-59) Alkaline Phosphatase 61 U/L (46-116) Total Protein 6.9 g/dL (6.4-8.2) Albumin 2.5 g/dL (3.4-5.0) Albumin/Globulin Ratio 0.6 (1.0-1.7) Test 01/26/20 17:47 01/26/20 23:11 01/27/20 07:42 01/27/20 16:20 Glucose (Fingerstick) 126 mg/dL (70-99) 136 mg/dL (70-99) 120 mg/dL (70-99) 125 mg/dL (70-99) Laboratory Tests Test 01/26/20 17:47 01/26/20 23:11 01/27/20 07:42 01/27/20 16:20 Glucose (Fingerstick) 126 mg/dL (70-99) 136 mg/dL (70-99) 120 mg/dL (70-99) 125 mg/dL (70-99) Medications Active Scripts Medications Dose Route/Sig Max Daily Dose Days Date Category Hydrochlorothiazide Tablet (Hydrochlorothiazide) 12.5 Mg Tablet 12.5 Mg PO DAILY 03/30/14 Reported Clopidogrel (Clopidogrel Bisulfate) 75 Mg Tablet 75 Mg PO DAILY 03/30/14 Reported Enalapril Maleate 20 Mg Tablet 20 Mg PO DAILY 03/30/14 Reported Metoprolol Tartrate 100 Mg Tablet 100 Mg PO BID 03/30/14 Reported Simvastatin 40 Mg Tablet 40 Mg PO DAILY 03/30/14 Reported Clonidine Hcl 0.2 Mg Tablet 0.2 Mg PO DAILY 03/30/14 Reported Calcium 500 + D Tablet (Calcium Carbonate/Vitamin D3) 1 Each Tablet 1 Each PO 03/30/14 Reported Daily Vitamin (Multivitamin) 1 Each Tablet 1 Each PO 03/30/14 Reported Aspir 81 (Aspirin) 81 Mg Tablet.dr 81 Mg PO 03/30/14 Reported Metformin Hcl Er (Metformin Hcl) 500 Mg Tab.er.24h 500 Mg PO DAILYWBKFT 03/30/14 Reported Impression . Abnormal chest x-ray with right lower lobe pneumonia, COVID -19 + No significant tobacco history Hypokalemia HTN Acute respiratory failure, COVID pneumonia Plan . Continue with present oxygen to keep saturation 92 and above. Continue broad-spectrum antibiotics including azithromycin and cont. Plaquenil. for 5 days We will follow the clinical course. Follow Infectious Disease recommendation. Discussed with RN. DVT/GI PPX ANGLE HARPER MD Jan 27, 2020 17:23
[2020-01-27 19:30] VITALS: BP 252/113
[2020-01-27] MEDS: SIMVASTATIN 40 MG TABLET. PO SCH (20:46)
[2020-01-27 23:27] VITALS: BP 219/101
[2020-01-28] VITALS (7 sets, daily range): BP systolic 143–219; BP diastolic 66–96
[2020-01-28] MEDS: hydrALAZINE 20 MG/ML VIAL. IVP PRN ×2 (00:46→08:26)
[2020-01-28] MEDS ORDERED: cloNIDine HCL 0.1 MG TABLET PO ONE ×2 (01:30)
[2020-01-28] MEDS ORDERED: cloNIDine HCL 0.2 MG TABLET PO PRN (01:30)
[2020-01-28] MEDS: INSULIN LISPRO 300 UNITS/3 ML VIAL. SQ SCH ×3 (08:00→16:23)
[2020-01-28] MEDS: metFORMIN XR 500 MG TAB.ER.24H PO SCH (08:23)
[2020-01-28] MEDS: METOPROLOL TART IMMED RELEASE 50 MG TABLET. PO SCH ×2 (08:24→20:45)
[2020-01-28] MEDS: LISINOPRIL 20 MG TABLET PO SCH (08:24)
[2020-01-28] MEDS: CLOPIDOGREL BISULFATE 75 MG TABLET PO SCH (08:24)
[2020-01-28] MEDS: LACTOBACILLUS RHAMNOSUS GG 1 CAPSULE. PO SCH ×2 (08:25→20:44)
[2020-01-28] MEDS: cloNIDine HCL 0.1 MG TABLET PO PRN (08:25)
[2020-01-28] MEDS: ASPIRIN ENTERIC COATED 81 MG TABLET.DR. PO SCH (08:25)
[2020-01-28] MEDS: ENOXAPARIN 40 MG/0.4 ML SYRINGE. SQ SCH (08:26)
[2020-01-28] MEDS: cloNIDine HCL 0.2 MG TABLET PO SCH (08:26)
--- NOTE | 2020-01-28 09:54 | PDOC ---
PROGRESS NOTES Subjective Subjective feeling better Objective Objective Vital Signs Date Time Temp Pulse Resp B/P (MAP) Pulse Ox O2 Delivery O2 Flow Rate FiO2 01/28/20 08:26 93 191/89 01/28/20 08:00 Room Air 01/28/20 07:00 97.8 19 92 2.0 97.8 Intake and Output 01/28/20 07:00 Intake Total 900 ml Balance 900 ml Intake Oral 900 ml # Voids 4 # Bowel Movements 1 Physical Exam Abdomen: Soft Heart: Regular rate, Normal S1, Normal S2 Extremities: No clubbing, No edema General: Oriented X3, mild distress HEENT: Atraumatic, PERRLA Lungs: Other (Decreased breath breath sounds on right base, no wheezing) MUSCULOSKELETAL: No deformity Neck: Supple Neuro: Normal speech Psych/Mental Status: Mental status NL Skin: No breakdown Diagnosis Problem List Problems Medical Problems: (1) Pneumonia Status: Acute Assessment Assessment Problems Medical Problems: (1) Pneumonia Status: Acute Assessment/Plan :Positive COVID-19 infection, fevers with pneumonia 1. Fever with chills Positive COVID -19, 2. Right lower lobe infiltration possible pneumonia. 3. Hypokalemia. 4. Mild renal sufficiency. 5. History of coronary disease stable. 6. Hypertension accelerated. 7. Mild elevated liver function test. 8. Diabetes 9. Hyperlipidemia 10 .ede LFT 11.Acc htn Plan:? SNU screen Dec. social service consult for discharge. cxr marychuy pneumonia Strep pneumonia antigen positive in urine. Dec slightly in LFT .. positive test for COVID-19. Acute hepatitis neg. replace pot,po 3.3 d/cd iv fluids. completed zithromax+plaquenil today on Rocephin ,change to PO?. pt/ot clonidine prn Plan Plan of Care Problems Medical Problems: (1) Pneumonia Status: Acute Comment Review of Relevant I have reviewed the following items tim (where applicable) has been applied. Labs Laboratory Tests Test 01/27/20 16:20 01/27/20 23:05 01/28/20 07:43 Glucose (Fingerstick) 125 mg/dL (70-99) 118 mg/dL (70-99) 125 mg/dL (70-99) Microbiology 01/21/20 Blood Culture - Final, Complete NO GROWTH AFTER 5 DAYS Medications Current Medications Clonidine HCl (Catapres) 0.1 mg 1X ONCE PO ; Start 01/28/20 at 01:30; Stop 01/28/20 at 01:22; Status DC Clonidine HCl (Catapres) 0.1 mg PRN Q6HRS PRN PO HYPERTENSION Last administered on 01/28/20at 08:25; Start 01/28/20 at 01:30 Clonidine HCl (Catapres) 0.2 mg 1X ONCE PO Last administered on 01/28/20at 01:41; Start 01/28/20 at 01:30; Stop 01/28/20 at 01:32; Status DC Clonidine HCl (Catapres) 0.2 mg Q6HRS PRN PO HYPERTENSION; Start 01/28/20 at 01:30; Stop 01/28/20 at 01:23; Status DC Vitals/I & O Vital Sign - Last 24 Hours 01/27/20 01/27/20 01/27/20 01/27/20 11:08 13:11 13:12 14:49 Temp 97.9 98.4 97.9 98.4 Pulse 86 86 86 87 Resp 20 20 B/P (MAP) 167/84 (111) 167/84 167/84 169/74 (105) Pulse Ox 100 95 O2 Delivery Nasal Cannula Nasal Cannula O2 Flow Rate 2.0 2.0 01/27/20 01/27/20 01/27/20 01/27/20 19:23 19:30 20:00 20:46 Temp 98.3 98.3 Pulse 101 105 101 Resp 20 B/P (MAP) 253/117 252/113 (159) 253/117 Pulse Ox 94 O2 Delivery Nasal Cannula Room Air O2 Flow Rate 2.0 01/27/20 01/27/20 01/27/20 01/28/20 20:47 23:27 23:38 00:37 Temp 98.5 98.5 Pulse 101 85 85 91 Resp 16 B/P (MAP) 253/117 219/101 (140) 219/101 219/88 (131) Pulse Ox 93 O2 Delivery Nasal Cannula Room Air O2 Flow Rate 2.0 01/28/20 01/28/20 01/28/20 01/28/20 00:46 01:41 03:06 07:00 Temp 98.6 97.8 98.6 97.8 Pulse 91 92 102 93 Resp 18 19 B/P (MAP) 219/88 201/85 199/86 (123) 191/89 (123) Pulse Ox 95 92 O2 Delivery Nasal Cannula Room Air O2 Flow Rate 2.0 2.0 01/28/20 01/28/20 01/28/20 01/28/20 08:00 08:24 08:24 08:24 Pulse 93 93 93 B/P (MAP) 191/89 191/89 191/89 O2 Delivery Room Air 01/28/20 01/28/20 01/28/20 08:25 08:26 08:26 Pulse 93 93 93 B/P (MAP) 191/89 191/89 191/89 Intake and Output 01/27/20 01/27/20 01/28/20 15:00 23:00 07:00 Intake Total 600 ml 300 ml Balance 600 ml 300 ml Hemodynamically unstable?: No Respiratory Distress?: Yes Justification for admission: COVID -19, pneumonia, CAd ,DM Serious Diagnosis?: Yes Is patient at high risk?: Yes Hemodynamically unstable?: No Is patient in severe pain?: No Is NPO status required?: No ISABELA LOPEZ MD Jan 28, 2020 09:54
--- NOTE | 2020-01-28 10:38 | PDOC ---
Objective: Objective: D/w nurse - doing well, no GI concerns. Awaiting transfer to SNU - must be 7 days out from COVID-19 diagnosis and 3 days fever free - potential DC on 01/29. Vital Signs: Vital Signs Date Time Temp Pulse Resp B/P (MAP) Pulse Ox O2 Delivery O2 Flow Rate FiO2 01/28/20 08:26 93 191/89 01/28/20 08:00 Room Air 01/28/20 07:00 97.8 19 92 2.0 97.8 Labs: Laboratory Tests Test 01/27/20 16:20 01/27/20 23:05 01/28/20 07:43 Glucose (Fingerstick) 125 mg/dL 118 mg/dL 125 mg/dL PE: deferred, in isolation A/P: Pneumonia - strep pneumo, +COVID-19 Elevated AST and ALT - favorable trend -- Stable GI-davies, plans as above. Hemodynamically unstable?: No Is patient in severe pain?: No Is NPO status required?: No DEANNE DIANA Jan 28, 2020 10:38
--- NOTE | 2020-01-28 11:04 | PDOC ---
Infectious Disease Note Subjective: Subjective Pt feels ok Denies worsening SOA or coug appetite is getting better Denies N/V/D BP meds adjusted Vital Signs: Vital Signs Vital Signs Date Time Temp Pulse Resp B/P (MAP) Pulse Ox O2 Delivery O2 Flow Rate FiO2 01/28/20 08:26 93 191/89 01/28/20 08:00 Room Air 01/28/20 07:00 97.8 19 92 2.0 97.8 Physical Exam: PHYSICAL EXAM Hands on exam deferred. see PCP/pulm assessment Visually, patient is propped up in bed, alert in NAD Breathing is nonlabored Heart rhythm regular No gross swelling lower extremities bilaterally PIV Medications: Inpatient Meds: Current Medications Medications (Trade) Dose Ordered Sig/Christiane Start Time Stop Time Status Last Admin Dose Admin Acetaminophen (Tylenol) 650 mg PRN Q6HRS PRN 01/21/20 22:45 01/26/20 13:27 650 MG Aspirin (Ecotrin) 81 mg DAILY 01/22/20 09:00 01/28/20 08:25 81 MG Azithromycin 250 ml @ 250 mls/hr 1X ONCE 01/21/20 13:45 01/21/20 14:44 DC 01/21/20 15:15 250 MLS/HR Azithromycin 250 mg/Sodium Chloride 250 ml @ 250 mls/hr Q24H 01/22/20 14:00 01/25/20 14:01 DC 01/25/20 14:45 250 MLS/HR Ceftriaxone Sodium (Rocephin) 1 gm Q24H 01/25/20 14:00 01/25/20 14:01 DC 01/25/20 14:46 1 GM Clonidine HCl (Catapres) 0.1 mg PRN Q6HRS PRN 01/28/20 01:30 01/28/20 08:25 0.1 MG Clopidogrel Bisulfate (Plavix) 75 mg DAILY 01/22/20 09:00 01/28/20 08:24 75 MG Dextrose (Dextrose 50%-Water Syringe) 12.5 gm PRN Q15MIN PRN 01/21/20 15:00 Dextrose (Iv Dextrose 5%) 250 ml PRN Q15MIN PRN 01/21/20 15:00 Enoxaparin Sodium (Lovenox 40mg Syringe) 40 mg Q24H 01/22/20 14:00 01/28/20 08:26 40 MG Hydralazine HCl (Apresoline Inj) 10 mg PRN Q4HRS PRN 01/21/20 22:15 01/28/20 08:26 10 MG Hydralazine HCl (Apresoline) 100 mg TID 01/28/20 14:00 Hydrochlorothiazide (Microzide) 12.5 mg DAILY 01/22/20 09:00 01/24/20 11:30 DC 01/24/20 08:29 12.5 MG Hydroxychloroquine Sulfate (Plaquenil (Med Program)) 200 mg BID 01/23/20 09:00 01/26/20 21:01 DC 01/26/20 21:07 200 MG Hydroxychloroquine Sulfate (Plaquenil) 400 mg BID 01/22/20 12:00 01/22/20 21:01 DC 01/22/20 19:45 400 MG Insulin Human Lispro (HumaLOG) 0-5 UNITS TIDWMEALS 01/21/20 17:00 Labetalol HCl (Normodyne Iv Push) 15 mg PRN Q2HR PRN 01/24/20 11:30 01/27/20 23:38 15 MG Lactobacillus Rhamnosus (Culturelle) 1 cap BID 01/22/20 21:00 01/28/20 08:25 1 CAP Lisinopril (Prinivil) 40 mg DAILY 01/22/20 09:00 01/28/20 08:24 40 MG Metformin HCl (Glucophage Xr) 500 mg DAILYWBKFT 01/22/20 08:00 01/28/20 08:23 500 MG Metoprolol Tartrate (Lopressor) 100 mg BID 01/21/20 21:00 01/28/20 08:24 100 MG Ondansetron HCl (Zofran) 8 mg PRN Q6HRS PRN 01/25/20 04:30 Potassium Chloride/Dextrose/ Sod Cl 1,000 ml @ 75 mls/hr [id number] 01/21/20 22:15 01/24/20 11:30 DC 01/23/20 23:37 75 MLS/HR Potassium Chloride (Klor-Con) 20 meq DAILY ONCE 01/27/20 09:00 01/27/20 09:01 DC 01/27/20 08:34 20 MEQ Simvastatin (Zocor) 40 mg QHS 01/21/20 21:00 01/27/20 20:46 40 MG Labs: Lab Laboratory Tests Test 01/27/20 16:20 01/27/20 23:05 01/28/20 07:43 Glucose (Fingerstick) 125 mg/dL (70-99) 118 mg/dL (70-99) 125 mg/dL (70-99) Objective: Assessment: Pneumonia. Strep pneumonia Acute SARS-CoV-2 Transaminitis Coronary artery disease. Diabetes. Hypertension.uncontrolled Plan: Plan of Care DC Rocephin will start cefdinir Plaquenil and Azithromycin completed Probiotics BC neg to date Airborne isolation for + COVID-19 d/w JARED LOCKETT MD Jan 28, 2020 11:04
--- NOTE | 2020-01-28 11:08 | PDOC ---
PULMONARY PROGRESS NOTES Subjective Patient not more short of air on 2 L of oxygen Vitals Vital Signs Date Time Temp Pulse Resp B/P (MAP) Pulse Ox O2 Delivery O2 Flow Rate FiO2 01/28/20 08:26 93 191/89 01/28/20 08:00 Room Air 01/28/20 07:00 97.8 19 92 2.0 97.8 General: Alert, No acute distress Lungs: Clear Cardiovascular: S1, S2 Abdomen: Soft Neuro Exam: Alert Extremities: No Edema Skin: Warm Labs Laboratory Tests Test 01/26/20 12:15 01/26/20 17:47 01/26/20 23:11 01/27/20 07:42 Glucose (Fingerstick) 127 mg/dL (70-99) 126 mg/dL (70-99) 136 mg/dL (70-99) 120 mg/dL (70-99) Test 01/27/20 16:20 01/27/20 23:05 01/28/20 07:43 Glucose (Fingerstick) 125 mg/dL (70-99) 118 mg/dL (70-99) 125 mg/dL (70-99) Laboratory Tests Test 01/27/20 16:20 01/27/20 23:05 01/28/20 07:43 Glucose (Fingerstick) 125 mg/dL (70-99) 118 mg/dL (70-99) 125 mg/dL (70-99) Medications Active Scripts Medications Dose Route/Sig Max Daily Dose Days Date Category Hydrochlorothiazide Tablet (Hydrochlorothiazide) 12.5 Mg Tablet 12.5 Mg PO DAILY 03/30/14 Reported Clopidogrel (Clopidogrel Bisulfate) 75 Mg Tablet 75 Mg PO DAILY 03/30/14 Reported Enalapril Maleate 20 Mg Tablet 20 Mg PO DAILY 03/30/14 Reported Metoprolol Tartrate 100 Mg Tablet 100 Mg PO BID 03/30/14 Reported Simvastatin 40 Mg Tablet 40 Mg PO DAILY 03/30/14 Reported Clonidine Hcl 0.2 Mg Tablet 0.2 Mg PO DAILY 03/30/14 Reported Calcium 500 + D Tablet (Calcium Carbonate/Vitamin D3) 1 Each Tablet 1 Each PO 03/30/14 Reported Daily Vitamin (Multivitamin) 1 Each Tablet 1 Each PO 03/30/14 Reported Aspir 81 (Aspirin) 81 Mg Tablet.dr 81 Mg PO 03/30/14 Reported Metformin Hcl Er (Metformin Hcl) 500 Mg Tab.er.24h 500 Mg PO DAILYWBKFT 03/30/14 Reported Impression . Abnormal chest x-ray with right lower lobe pneumonia, COVID -19 + No significant tobacco history Hypokalemia HTN Acute respiratory failure, COVID pneumonia Plan . If all agree, will discharge in the a.m., patient on oral antibiotic Continue with present oxygen to keep saturation 92 and above. Continue broad-spectrum antibiotics including azithromycin and cont. Plaquenil. for 5 days We will follow the clinical course. Follow Infectious Disease recommendation. Discussed with RN. DVT/GI PPX ANGLE HARPER MD Jan 28, 2020 11:08
[2020-01-28] MEDS: CEFDINIR 300 MG CAPSULE PO SCH ×2 (14:07→20:44)
[2020-01-28] MEDS: SIMVASTATIN 40 MG TABLET. PO SCH (20:44)
[2020-01-29] MEDS: hydrALAZINE 20 MG/ML VIAL. IVP PRN ×4 (00:09→23:33)
[2020-01-29] MEDS: cloNIDine HCL 0.1 MG TABLET PO PRN ×3 (00:09→23:33)
[2020-01-29 03:00] VITALS: BP 171/85
[2020-01-29 05:28] LABS: CALCIUM 8.7 mg/dL (8.5-10.1); GFR 65.2; POTASSIUM 3.7 mmol/L (3.5-5.1)
[2020-01-29 07:45] VITALS: BP 210/100
[2020-01-29] MEDS: INSULIN LISPRO 300 UNITS/3 ML VIAL. SQ SCH ×3 (08:00→17:00)
[2020-01-29] MEDS: LACTOBACILLUS RHAMNOSUS GG 1 CAPSULE. PO SCH ×2 (08:02→20:56)
[2020-01-29] MEDS: ASPIRIN ENTERIC COATED 81 MG TABLET.DR. PO SCH (08:03)
[2020-01-29] MEDS: CEFDINIR 300 MG CAPSULE PO SCH ×2 (08:03→20:56)
[2020-01-29] MEDS: LISINOPRIL 20 MG TABLET PO SCH (08:03)
[2020-01-29] MEDS: cloNIDine HCL 0.2 MG TABLET PO SCH (08:03)
[2020-01-29] MEDS: CLOPIDOGREL BISULFATE 75 MG TABLET PO SCH (08:04)
[2020-01-29] MEDS: metFORMIN XR 500 MG TAB.ER.24H PO SCH (08:05)
[2020-01-29] MEDS: METOPROLOL TART IMMED RELEASE 50 MG TABLET. PO SCH ×2 (08:05→20:58)
--- NOTE | 2020-01-29 09:53 | PDOC ---
Infectious Disease Note Subjective: Subjective Pt feels ok Denies worsening SOA or coug appetite is getting better Denies N/V/D BP meds adjusted Vital Signs: Vital Signs Vital Signs Date Time Temp Pulse Resp B/P (MAP) Pulse Ox O2 Delivery O2 Flow Rate FiO2 01/29/20 08:05 84 210/100 01/29/20 07:45 97.0 18 95 Room Air 97.0 01/28/20 07:00 2.0 Physical Exam: PHYSICAL EXAM Hands on exam deferred. see PCP/pulm assessment Visually, patient is propped up in bed, alert in NAD Breathing is nonlabored Heart rhythm regular No gross swelling lower extremities bilaterally PIV Medications: Inpatient Meds: Current Medications Medications (Trade) Dose Ordered Sig/Christiane Start Time Stop Time Status Last Admin Dose Admin Acetaminophen (Tylenol) 650 mg PRN Q6HRS PRN 01/21/20 22:45 01/26/20 13:27 650 MG Aspirin (Ecotrin) 81 mg DAILY 01/22/20 09:00 01/29/20 08:03 81 MG Azithromycin 250 ml @ 250 mls/hr 1X ONCE 01/21/20 13:45 01/21/20 14:44 DC 01/21/20 15:15 250 MLS/HR Azithromycin 250 mg/Sodium Chloride 250 ml @ 250 mls/hr Q24H 01/22/20 14:00 01/25/20 14:01 DC 01/25/20 14:45 250 MLS/HR Cefdinir (Omnicef) 300 mg BID 01/28/20 12:00 01/29/20 08:03 300 MG Ceftriaxone Sodium (Rocephin) 1 gm Q24H 01/25/20 14:00 01/25/20 14:01 DC 01/25/20 14:46 1 GM Clonidine HCl (Catapres) 0.1 mg PRN Q6HRS PRN 01/28/20 01:30 01/29/20 00:09 0.1 MG Clopidogrel Bisulfate (Plavix) 75 mg DAILY 01/22/20 09:00 01/29/20 08:04 75 MG Dextrose (Dextrose 50%-Water Syringe) 12.5 gm PRN Q15MIN PRN 01/21/20 15:00 Dextrose (Iv Dextrose 5%) 250 ml PRN Q15MIN PRN 01/21/20 15:00 Enoxaparin Sodium (Lovenox 40mg Syringe) 40 mg Q24H 01/22/20 14:00 01/28/20 08:26 40 MG Hydralazine HCl (Apresoline Inj) 10 mg PRN Q4HRS PRN 01/21/20 22:15 01/29/20 04:40 10 MG Hydralazine HCl (Apresoline) 100 mg TID 01/28/20 14:00 01/29/20 08:04 100 MG Hydrochlorothiazide (Microzide) 12.5 mg DAILY 01/22/20 09:00 01/24/20 11:30 DC 01/24/20 08:29 12.5 MG Hydroxychloroquine Sulfate (Plaquenil (Med Program)) 200 mg BID 01/23/20 09:00 01/26/20 21:01 DC 01/26/20 21:07 200 MG Hydroxychloroquine Sulfate (Plaquenil) 400 mg BID 01/22/20 12:00 01/22/20 21:01 DC 01/22/20 19:45 400 MG Insulin Human Lispro (HumaLOG) 0-5 UNITS TIDWMEALS 01/21/20 17:00 Labetalol HCl (Normodyne Iv Push) 15 mg PRN Q2HR PRN 01/24/20 11:30 01/27/20 23:38 15 MG Lactobacillus Rhamnosus (Culturelle) 1 cap BID 01/22/20 21:00 01/29/20 08:02 1 CAP Lisinopril (Prinivil) 40 mg DAILY 01/22/20 09:00 01/29/20 08:03 40 MG Metformin HCl (Glucophage Xr) 500 mg DAILYWBKFT 01/22/20 08:00 01/29/20 08:05 500 MG Metoprolol Tartrate (Lopressor) 100 mg BID 01/21/20 21:00 01/29/20 08:05 100 MG Ondansetron HCl (Zofran) 8 mg PRN Q6HRS PRN 01/25/20 04:30 Potassium Chloride/Dextrose/ Sod Cl 1,000 ml @ 75 mls/hr [id number] 01/21/20 22:15 01/24/20 11:30 DC 01/23/20 23:37 75 MLS/HR Potassium Chloride (Klor-Con) 20 meq DAILY ONCE 01/27/20 09:00 01/27/20 09:01 DC 01/27/20 08:34 20 MEQ Simvastatin (Zocor) 40 mg QHS 01/21/20 21:00 01/28/20 20:44 40 MG Labs: Lab Laboratory Tests Test 01/28/20 11:32 01/28/20 16:16 01/28/20 20:29 01/29/20 04:15 Glucose (Fingerstick) 118 mg/dL (70-99) 124 mg/dL (70-99) 119 mg/dL (70-99) Sodium Level 147 mmol/L (136-145) Potassium Level 3.7 mmol/L (3.5-5.1) Chloride Level 111 mmol/L (98-107) Carbon Dioxide Level 25 mmol/L (21-32) Anion Gap 11 (6-14) Blood Urea Nitrogen 15 mg/dL (7-20) Creatinine 1.0 mg/dL (0.6-1.0) Estimated GFR (Cockcroft-Gault) 65.2 Glucose Level 116 mg/dL (70-99) Calcium Level 8.7 mg/dL (8.5-10.1) Test 01/29/20 07:42 Glucose (Fingerstick) 127 mg/dL (70-99) Objective: Assessment: Pneumonia. Strep pneumonia Acute SARS-CoV-2 Transaminitis Coronary artery disease. Diabetes. Hypertension Plan: Plan of Care cont cefdinir for 4 days Plaquenil and Azithromycin completed Probiotics BC neg to date Maintain isolation for COVID-19 d/w JARED LOCKETT MD Jan 29, 2020 09:53
--- NOTE | 2020-01-29 10:18 | PDOC ---
PULMONARY PROGRESS NOTES Subjective Patient not more short of air on 2 L of oxygen Vitals Vital Signs Date Time Temp Pulse Resp B/P (MAP) Pulse Ox O2 Delivery O2 Flow Rate FiO2 01/29/20 08:05 84 210/100 01/29/20 07:45 97.0 18 95 Room Air 97.0 01/28/20 07:00 2.0 General: Alert, No acute distress Lungs: Clear Cardiovascular: S1, S2 Abdomen: Soft Neuro Exam: Alert Extremities: No Edema Skin: Warm Labs Laboratory Tests Test 01/27/20 16:20 01/27/20 23:05 01/28/20 07:43 01/28/20 11:32 Glucose (Fingerstick) 125 mg/dL (70-99) 118 mg/dL (70-99) 125 mg/dL (70-99) 118 mg/dL (70-99) Test 01/28/20 16:16 01/28/20 20:29 01/29/20 04:15 01/29/20 07:42 Glucose (Fingerstick) 124 mg/dL (70-99) 119 mg/dL (70-99) 127 mg/dL (70-99) Sodium Level 147 mmol/L (136-145) Potassium Level 3.7 mmol/L (3.5-5.1) Chloride Level 111 mmol/L (98-107) Carbon Dioxide Level 25 mmol/L (21-32) Anion Gap 11 (6-14) Blood Urea Nitrogen 15 mg/dL (7-20) Creatinine 1.0 mg/dL (0.6-1.0) Estimated GFR (Cockcroft-Gault) 65.2 Glucose Level 116 mg/dL (70-99) Calcium Level 8.7 mg/dL (8.5-10.1) Laboratory Tests Test 01/28/20 11:32 01/28/20 16:16 01/28/20 20:29 01/29/20 04:15 Glucose (Fingerstick) 118 mg/dL (70-99) 124 mg/dL (70-99) 119 mg/dL (70-99) Sodium Level 147 mmol/L (136-145) Potassium Level 3.7 mmol/L (3.5-5.1) Chloride Level 111 mmol/L (98-107) Carbon Dioxide Level 25 mmol/L (21-32) Anion Gap 11 (6-14) Blood Urea Nitrogen 15 mg/dL (7-20) Creatinine 1.0 mg/dL (0.6-1.0) Estimated GFR (Cockcroft-Gault) 65.2 Glucose Level 116 mg/dL (70-99) Calcium Level 8.7 mg/dL (8.5-10.1) Test 01/29/20 07:42 Glucose (Fingerstick) 127 mg/dL (70-99) Medications Active Scripts Medications Dose Route/Sig Max Daily Dose Days Date Category Hydrochlorothiazide Tablet (Hydrochlorothiazide) 12.5 Mg Tablet 12.5 Mg PO DAILY 03/30/14 Reported Clopidogrel (Clopidogrel Bisulfate) 75 Mg Tablet 75 Mg PO DAILY 03/30/14 Reported Enalapril Maleate 20 Mg Tablet 20 Mg PO DAILY 03/30/14 Reported Metoprolol Tartrate 100 Mg Tablet 100 Mg PO BID 03/30/14 Reported Simvastatin 40 Mg Tablet 40 Mg PO DAILY 03/30/14 Reported Clonidine Hcl 0.2 Mg Tablet 0.2 Mg PO DAILY 03/30/14 Reported Calcium 500 + D Tablet (Calcium Carbonate/Vitamin D3) 1 Each Tablet 1 Each PO 03/30/14 Reported Daily Vitamin (Multivitamin) 1 Each Tablet 1 Each PO 03/30/14 Reported Aspir 81 (Aspirin) 81 Mg Tablet.dr 81 Mg PO 03/30/14 Reported Metformin Hcl Er (Metformin Hcl) 500 Mg Tab.er.24h 500 Mg PO DAILYWBKFT 03/30/14 Reported Impression . Abnormal chest x-ray with right lower lobe pneumonia, COVID -19 + No significant tobacco history Hypokalemia HTN Acute respiratory failure, COVID pneumonia Plan . Patient currently being evaluated for correction unit Continue oral antibiotics Continue with present oxygen to keep saturation 92 and above. Continue broad-spectrum antibiotics including azithromycin and cont. Plaquenil. for 5 days We will follow the clinical course. Follow Infectious Disease recommendation. Discussed with RN. DVT/GI PPX ANGLE HARPER MD Jan 29, 2020 10:18
--- NOTE | 2020-01-29 10:28 | PDOC ---
Objective: Objective: D/w nurse - no GI concerns, possible DC tomorrow. Vital Signs: Vital Signs Date Time Temp Pulse Resp B/P (MAP) Pulse Ox O2 Delivery O2 Flow Rate FiO2 01/29/20 08:05 84 210/100 01/29/20 07:45 97.0 18 95 Room Air 97.0 01/28/20 07:00 2.0 Labs: Laboratory Tests Test 01/28/20 11:32 01/28/20 16:16 01/28/20 20:29 01/29/20 07:42 Glucose (Fingerstick) 118 mg/dL (70-99) 124 mg/dL (70-99) 119 mg/dL (70-99) 127 mg/dL (70-99) PE: deferred A/P: Pneumonia - strep pneumo, +COVID-19 -- Stable from GI standpoint. Hemodynamically unstable?: No Is patient in severe pain?: No Is NPO status required?: No DEANNE DIANA Jan 29, 2020 10:28
--- NOTE | 2020-01-29 10:29 | PDOC ---
PROGRESS NOTES Subjective Subjective feels good Objective Objective Vital Signs Date Time Temp Pulse Resp B/P (MAP) Pulse Ox O2 Delivery O2 Flow Rate FiO2 01/29/20 08:05 84 210/100 01/29/20 07:45 97.0 18 95 Room Air 97.0 01/28/20 07:00 2.0 Intake and Output 01/29/20 07:00 Intake Total 120 ml Output Total 2 ml Balance 118 ml Intake Oral 120 ml Output Urine Total 2 ml # Voids 4 Physical Exam Abdomen: Soft Heart: Regular rate, Normal S1, Normal S2 Extremities: No clubbing, No edema General: Oriented X3, mild distress HEENT: Atraumatic, PERRLA Lungs: Other (Decreased breath breath sounds on right base, no wheezing) MUSCULOSKELETAL: No deformity Neck: Supple Neuro: Normal speech Psych/Mental Status: Mental status NL Skin: No breakdown Diagnosis Problem List Problems Medical Problems: (1) Pneumonia Status: Acute Assessment Assessment Problems Medical Problems: (1) Pneumonia Status: Acute Assessment/Plan :Positive COVID-19 infection, fevers with pneumonia 1. Fever with chills Positive COVID -19, 2. Right lower lobe infiltration possible pneumonia. 3. Hypokalemia. 4. Mild renal sufficiency. 5. History of coronary disease stable. 6. Hypertension accelerated. 7. Mild elevated liver function test. 8. Diabetes 9. Hyperlipidemia 10 .ede LFT 11.Acc htn Plan:? SNU screen Dec. social service consult for discharge. cxr marychuy pneumonia Strep pneumonia antigen positive in urine. Dec slightly in LFT .. positive test for COVID-19. Acute hepatitis neg. replace pot,po 4.3 d/cd iv fluids. completed zithromax+plaquenil . d/c Rocephin ,change to PO. pt/ot clonidine prn for bp Plan Plan of Care Problems Medical Problems: (1) Pneumonia Status: Acute Comment Review of Relevant I have reviewed the following items tim (where applicable) has been applied. Labs Laboratory Tests Test 01/28/20 11:32 01/28/20 16:16 01/28/20 20:29 01/29/20 04:15 Glucose (Fingerstick) 118 mg/dL (70-99) 124 mg/dL (70-99) 119 mg/dL (70-99) Sodium Level 147 mmol/L (136-145) Potassium Level 3.7 mmol/L (3.5-5.1) Chloride Level 111 mmol/L (98-107) Carbon Dioxide Level 25 mmol/L (21-32) Anion Gap 11 (6-14) Blood Urea Nitrogen 15 mg/dL (7-20) Creatinine 1.0 mg/dL (0.6-1.0) Estimated GFR (Cockcroft-Gault) 65.2 Glucose Level 116 mg/dL (70-99) Calcium Level 8.7 mg/dL (8.5-10.1) Test 01/29/20 07:42 Glucose (Fingerstick) 127 mg/dL (70-99) Microbiology 01/21/20 Blood Culture - Final, Complete NO GROWTH AFTER 5 DAYS Medications Current Medications Cefdinir (Omnicef) 300 mg BID PO Last administered on 01/29/20at 08:03; Start 01/28/20 at 12:00 Hydralazine HCl (Apresoline) 100 mg TID PO Last administered on 01/29/20at 08:04; Start 01/28/20 at 14:00 Vitals/I & O Vital Sign - Last 24 Hours 01/28/20 01/28/20 01/28/20 01/28/20 11:00 14:08 15:00 19:00 Temp 97.1 96.3 97.9 97.1 96.3 97.9 Pulse 78 78 76 93 Resp 18 18 B/P (MAP) 143/67 (92) 143/67 146/66 (92) 207/92 (130) Pulse Ox 93 92 94 O2 Delivery Room Air Room Air Room Air 01/28/20 01/28/20 01/28/20 01/28/20 20:15 20:44 20:45 23:00 Temp 98.5 98.5 Pulse 86 86 74 Resp 18 B/P (MAP) 230/98 230/98 200/96 (130) Pulse Ox 96 O2 Delivery Room Air Room Air 01/29/20 01/29/20 01/29/20 01/29/20 00:09 00:09 03:00 04:40 Temp 98.7 98.7 Pulse 74 74 79 79 Resp 18 B/P (MAP) 200/96 200/96 171/85 (113) 171/85 Pulse Ox 97 O2 Delivery Room Air 4/07/1101/29/20 01/29/20 01/29/20 07:45 08:03 08:03 08:04 Temp 97.0 97.0 Pulse 85 84 84 84 Resp 18 B/P (MAP) 210/100 (136) 210/100 210/100 210/100 Pulse Ox 95 O2 Delivery Room Air 01/29/20 08:05 Pulse 84 B/P (MAP) 210/100 Intake and Output 01/28/20 01/28/20 01/29/20 15:00 23:00 07:00 Intake Total 120 ml Output Total 2 ml Balance 118 ml Hemodynamically unstable?: No Respiratory Distress?: Yes Justification for admission: COVID -19, pneumonia, CAd ,DM Serious Diagnosis?: Yes Is patient at high risk?: Yes Hemodynamically unstable?: No Is patient in severe pain?: No Is NPO status required?: No ISABELA LOPEZ MD Jan 29, 2020 10:29
[2020-01-29 11:06] VITALS: BP 167/76
[2020-01-29 15:06] VITALS: BP 192/86
[2020-01-29] MEDS: ENOXAPARIN 40 MG/0.4 ML SYRINGE. SQ SCH (15:26)
[2020-01-29] MEDS: LABETALOL 20 MG/4 ML DISP.SYRIN. IVP PRN (17:28)
[2020-01-29 19:30] VITALS: BP 191/90
[2020-01-29] MEDS: SIMVASTATIN 40 MG TABLET. PO SCH (20:56)
[2020-01-29 23:10] VITALS: BP 179/86
[2020-01-30 03:10] VITALS: BP 208/88
[2020-01-30] MEDS: LABETALOL 20 MG/4 ML DISP.SYRIN. IVP PRN (03:35)
[2020-01-30 07:00] VITALS: BP 200/90
[2020-01-30] MEDS: INSULIN LISPRO 300 UNITS/3 ML VIAL. SQ SCH ×2 (08:00→12:00)
[2020-01-30] MEDS: CEFDINIR 300 MG CAPSULE PO SCH (08:06)
[2020-01-30] MEDS: LISINOPRIL 20 MG TABLET PO SCH (08:06)
[2020-01-30] MEDS: cloNIDine HCL 0.2 MG TABLET PO SCH (08:07)
[2020-01-30] MEDS: ASPIRIN ENTERIC COATED 81 MG TABLET.DR. PO SCH (08:07)
[2020-01-30] MEDS: metFORMIN XR 500 MG TAB.ER.24H PO SCH (08:07)
[2020-01-30] MEDS: CLOPIDOGREL BISULFATE 75 MG TABLET PO SCH (08:08)
[2020-01-30] MEDS: METOPROLOL TART IMMED RELEASE 50 MG TABLET. PO SCH (08:08)
[2020-01-30] MEDS: LACTOBACILLUS RHAMNOSUS GG 1 CAPSULE. PO SCH (08:08)
[2020-01-30 09:35] VITALS: BP 139/74
--- NOTE | 2020-01-30 09:48 | PDOC ---
Infectious Disease Note Subjective: Subjective Pt feels ok Denies worsening SOA or cough Denies N/V/D Vital Signs: Vital Signs Vital Signs Date Time Temp Pulse Resp B/P (MAP) Pulse Ox O2 Delivery O2 Flow Rate FiO2 01/30/20 09:35 78 139/74 (95) 01/30/20 07:00 98.1 18 98.1 01/30/20 03:10 98 Room Air Physical Exam: PHYSICAL EXAM Hands on exam deferred. see PCP assessment Visually, patient is propped up in bed, alert in NAD Breathing is nonlabored Heart rhythm regular No gross swelling lower extremities bilaterally PIV Medications: Inpatient Meds: Current Medications Medications (Trade) Dose Ordered Sig/Christiane Start Time Stop Time Status Last Admin Dose Admin Acetaminophen (Tylenol) 650 mg PRN Q6HRS PRN 01/21/20 22:45 01/26/20 13:27 650 MG Aspirin (Ecotrin) 81 mg DAILY 01/22/20 09:00 01/30/20 08:07 81 MG Azithromycin 250 ml @ 250 mls/hr 1X ONCE 01/21/20 13:45 01/21/20 14:44 DC 01/21/20 15:15 250 MLS/HR Azithromycin 250 mg/Sodium Chloride 250 ml @ 250 mls/hr Q24H 01/22/20 14:00 01/25/20 14:01 DC 01/25/20 14:45 250 MLS/HR Cefdinir (Omnicef) 300 mg BID 01/28/20 12:00 01/30/20 08:06 300 MG Ceftriaxone Sodium (Rocephin) 1 gm Q24H 01/25/20 14:00 01/25/20 14:01 DC 01/25/20 14:46 1 GM Clonidine HCl (Catapres) 0.1 mg PRN Q6HRS PRN 01/28/20 01:30 01/29/20 23:33 0.1 MG Clopidogrel Bisulfate (Plavix) 75 mg DAILY 01/22/20 09:00 01/30/20 08:08 75 MG Dextrose (Dextrose 50%-Water Syringe) 12.5 gm PRN Q15MIN PRN 01/21/20 15:00 Dextrose (Iv Dextrose 5%) 250 ml PRN Q15MIN PRN 01/21/20 15:00 Enoxaparin Sodium (Lovenox 40mg Syringe) 40 mg Q24H 01/22/20 14:00 01/29/20 15:26 40 MG Hydralazine HCl (Apresoline Inj) 10 mg PRN Q4HRS PRN 01/21/20 22:15 01/29/20 23:33 10 MG Hydralazine HCl (Apresoline) 100 mg TID 01/28/20 14:00 01/30/20 08:07 100 MG Hydrochlorothiazide (Microzide) 12.5 mg DAILY 01/22/20 09:00 01/24/20 11:30 DC 01/24/20 08:29 12.5 MG Hydroxychloroquine Sulfate (Plaquenil (Med Program)) 200 mg BID 01/23/20 09:00 01/26/20 21:01 DC 01/26/20 21:07 200 MG Hydroxychloroquine Sulfate (Plaquenil) 400 mg BID 01/22/20 12:00 01/22/20 21:01 DC 01/22/20 19:45 400 MG Insulin Human Lispro (HumaLOG) 0-5 UNITS TIDWMEALS 01/21/20 17:00 Labetalol HCl (Normodyne Iv Push) 15 mg PRN Q2HR PRN 01/24/20 11:30 01/30/20 03:35 15 MG Lactobacillus Rhamnosus (Culturelle) 1 cap BID 01/22/20 21:00 01/30/20 08:08 1 CAP Lisinopril (Prinivil) 40 mg DAILY 01/22/20 09:00 01/30/20 08:06 40 MG Metformin HCl (Glucophage Xr) 500 mg DAILYWBKFT 01/22/20 08:00 01/30/20 08:07 500 MG Metoprolol Tartrate (Lopressor) 100 mg BID 01/21/20 21:00 01/30/20 08:08 100 MG Ondansetron HCl (Zofran) 8 mg PRN Q6HRS PRN 01/25/20 04:30 01/29/20 12:50 DC Potassium Chloride/Dextrose/ Sod Cl 1,000 ml @ 75 mls/hr [id number] 01/21/20 22:15 01/24/20 11:30 DC 01/23/20 23:37 75 MLS/HR Potassium Chloride (Klor-Con) 20 meq DAILY ONCE 01/27/20 09:00 01/27/20 09:01 DC 01/27/20 08:34 20 MEQ Simvastatin (Zocor) 40 mg QHS 01/21/20 21:00 01/29/20 20:56 40 MG Labs: Lab Laboratory Tests Test 01/29/20 11:20 01/29/20 16:43 01/29/20 23:07 01/30/20 08:01 Glucose (Fingerstick) 122 mg/dL (70-99) 149 mg/dL (70-99) 113 mg/dL (70-99) 125 mg/dL (70-99) Objective: Assessment: Pneumonia. Strep pneumonia Acute SARS-CoV-2 Transaminitis Coronary artery disease. Diabetes. Hypertension Plan: Plan of Care cont cefdinir for 3 more days Plaquenil and Azithromycin completed Probiotics BC neg Maintain isolation for COVID-19 d/w JARED LOCKETT MD Jan 30, 2020 09:48
--- NOTE | 2020-01-30 10:11 | PDOC ---
Objective: Objective: D/w nurse - continues w/o GI complaints, possible DC to rehab today. Vital Signs: Vital Signs Date Time Temp Pulse Resp B/P (MAP) Pulse Ox O2 Delivery O2 Flow Rate FiO2 01/30/20 09:35 78 139/74 (95) 01/30/20 07:00 98.1 18 98.1 01/30/20 03:10 98 Room Air Labs: Laboratory Tests Test 01/29/20 11:20 01/29/20 16:43 01/29/20 23:07 01/30/20 08:01 Glucose (Fingerstick) 122 mg/dL (70-99) 149 mg/dL (70-99) 113 mg/dL (70-99) 125 mg/dL (70-99) PE: deferred A/P: Pneumonia, +COVID-19 -- Plans as above. Hemodynamically unstable?: No Is patient in severe pain?: No Is NPO status required?: No CHARLOTTE-DEANNE MENDOZA Jan 30, 2020 10:11
--- NOTE | 2020-01-30 10:28 | PDOC ---
PROGRESS NOTES Subjective Subjective feels ok Objective Objective Vital Signs Date Time Temp Pulse Resp B/P (MAP) Pulse Ox O2 Delivery O2 Flow Rate FiO2 01/30/20 09:35 78 139/74 (95) 01/30/20 07:00 98.1 18 98.1 01/30/20 03:10 98 Room Air Intake and Output 01/30/20 07:00 Intake Total 770 ml Balance 770 ml Intake Oral 770 ml # Voids 4 Physical Exam Abdomen: Soft Heart: Regular rate, Normal S1, Normal S2 Extremities: No clubbing, No edema General: Oriented X3, mild distress HEENT: Atraumatic, PERRLA Lungs: Other (Decreased breath breath sounds on right base, no wheezing) MUSCULOSKELETAL: No deformity Neck: Supple Neuro: Normal speech Psych/Mental Status: Mental status NL Skin: No breakdown Diagnosis Problem List Problems Medical Problems: (1) Pneumonia Status: Acute Assessment Assessment Problems Medical Problems: (1) Pneumonia Status: Acute Assessment/Plan :Positive COVID-19 infection, fevers with pneumonia 1. Fever with chills Positive COVID -19, 2. Right lower lobe infiltration possible pneumonia. 3. Hypokalemia. 4. Mild renal sufficiency. 5. History of coronary disease stable. 6. Hypertension accelerated. 7. Mild elevated liver function test. 8. Diabetes 9. Hyperlipidemia 10 .ede LFT 11.Acc htn Plan: to MAR hopefully today social service consult for discharge. cxr marychuy pneumonia Strep pneumonia antigen positive in urine. Dec slightly in LFT .. positive test for COVID-19. Acute hepatitis neg. replace pot,po 4.3 d/cd iv fluids. completed zithromax+plaquenil . d/c Rocephin ,change to PO. pt/ot clonidine prn for bp Plan Plan of Care Problems Medical Problems: (1) Pneumonia Status: Acute Comment Review of Relevant I have reviewed the following items tim (where applicable) has been applied. Labs Laboratory Tests Test 01/29/20 11:20 01/29/20 16:43 01/29/20 23:07 01/30/20 08:01 Glucose (Fingerstick) 122 mg/dL (70-99) 149 mg/dL (70-99) 113 mg/dL (70-99) 125 mg/dL (70-99) Microbiology 01/21/20 Blood Culture - Final, Complete NO GROWTH AFTER 5 DAYS Vitals/I & O Vital Sign - Last 24 Hours 01/29/20 01/29/20 01/29/20 01/29/20 11:06 13:54 15:06 15:25 Temp 97.4 97.1 97.4 97.1 Pulse 76 88 81 81 Resp 20 20 B/P (MAP) 167/76 (106) 192/92 192/86 (121) 194/90 Pulse Ox 98 96 O2 Delivery Room Air Room Air 01/29/20 01/29/20 01/29/20 01/29/20 15:25 17:28 19:30 20:30 Temp 98.2 98.2 Pulse 81 72 90 Resp 20 B/P (MAP) 190/94 197/86 191/90 (123) Pulse Ox 97 O2 Delivery Room Air Room Air 01/29/20 01/29/20 01/29/20 01/29/20 20:58 20:59 23:10 23:33 Temp 97.8 97.8 Pulse 90 90 83 83 Resp 20 B/P (MAP) 191/90 191/90 179/86 (117) 179/86 Pulse Ox 97 O2 Delivery Room Air 01/29/20 01/30/20 01/30/20 01/30/20 23:33 03:10 03:35 07:00 Temp 98.5 98.1 98.5 98.1 Pulse 83 80 80 84 Resp 16 18 B/P (MAP) 179/86 208/88 (128) 208/88 200/90 (126) Pulse Ox 98 O2 Delivery Room Air 01/30/20 01/30/20 01/30/20 01/30/20 08:06 08:07 08:07 08:08 Pulse 85 85 85 85 B/P (MAP) 200/90 200/90 200/90 200/90 01/30/20 09:35 Pulse 78 B/P (MAP) 139/74 (95) Intake and Output 01/29/20 01/29/20 01/30/20 15:00 23:00 07:00 Intake Total 420 ml 200 ml 150 ml Balance 420 ml 200 ml 150 ml Hemodynamically unstable?: No Respiratory Distress?: Yes Justification for admission: COVID -19, pneumonia, CAd ,DM Serious Diagnosis?: Yes Is patient at high risk?: Yes Hemodynamically unstable?: No Is patient in severe pain?: No Is NPO status required?: No ISABELA LOPEZ MD Jan 30, 2020 10:28
[2020-01-30] MEDS ORDERED: CEFD300C PO (10:33)
[2020-01-30] MEDS ORDERED: HYDR-2869 PO (10:33)
--- NOTE | 2020-01-30 10:35 | SNU/HH DC ---
DISCHARGE ORDERS DISCHARGE INFORMATION: DISCHARGE DATE: Jan 30, 2020 FINAL DIAGNOSIS Problems Medical Problems: (1) Pneumonia Status: Acute CONDITION ON DISCHARGE: Stable CODE STATUS: Code Status: Full FPC: SNF STAY <30 DAYS: Yes HOSPICE: HOSPICE: No LTAC: ADMIT TO LTAC: No POST DISCHARGE ORDERS: DIET AFTER DISCHARGE: Cardiac CHECKS AFTER DISCHARGE: CHECKS AFTER DISCHARGE: Check blood press - daily, Check blood sugar, ac/hs TREATMENT/EQUIPMENT ORDERS: Physical Therapy For: Evalulation/Treatment Occupational Therapy For: Evaluation/Treatment DISCHARGE MEDICATIONS: Home Meds Active Scripts Hydralazine Hcl (HYDRALAZINE HCL) 50 Mg Tablet, 100 MG PO TID for htn for 30 Days, #180 TAB Prov:ISABELA LOPEZ MD 01/30/20 Cefdinir (CEFDINIR) 300 Mg Capsule, 300 MG PO BID for pneumonia for 7 Days, #14 CAP Prov:ISABELA LOPEZ MD 01/30/20 Reported Medications Clopidogrel Bisulfate (CLOPIDOGREL) 75 Mg Tablet, 75 MG PO DAILY for TO PREVENT BLOOD CLOTS, #30 TAB 0 Refills 03/30/14 Enalapril Maleate (ENALAPRIL MALEATE) 20 Mg Tablet, 20 MG PO DAILY, TAB 03/30/14 Metoprolol Tartrate (METOPROLOL TARTRATE) 100 Mg Tablet, 100 MG PO BID for FOR HYPERTENSION, #60 TAB 0 Refills 03/30/14 Simvastatin (SIMVASTATIN) 40 Mg Tablet, 40 MG PO DAILY for FOR CHOLESTEROL, #30 TAB 0 Refills 03/30/14 Clonidine Hcl (CLONIDINE HCL) 0.2 Mg Tablet, 0.2 MG PO DAILY, TAB 03/30/14 Calcium Carbonate/Vitamin D3 (CALCIUM 500 + D TABLET) 1 Each Tablet, 1 EACH PO 03/30/14 Multivitamin (DAILY VITAMIN) 1 Each Tablet, 1 EACH PO 03/30/14 Aspirin (ASPIR 81) 81 Mg Tablet.dr, 81 MG PO, TAB 03/30/14 Metformin Hcl (METFORMIN HCL ER) 500 Mg Tab.er.24h, 500 MG PO DAILYWBKFT for ANTI-DIABETIC, TAB 0 Refills 03/30/14 Discontinued Reported Medications Hydrochlorothiazide (HYDROCHLOROTHIAZIDE TABLET) 12.5 Mg Tablet, 12.5 MG PO DAILY for DIURETIC, TAB 0 Refills 03/30/14 ISABELA LOPEZ MD Jan 30, 2020 10:34
[2020-01-30 11:00] VITALS: BP 146/62
[2020-01-30] MEDS: ENOXAPARIN 40 MG/0.4 ML SYRINGE. SQ SCH (14:30)
[2020-01-30 15:00] VITALS: BP 160/75
--- NOTE | 2020-01-30 16:55 | PDOC ---
PULMONARY PROGRESS NOTES Subjective Patient not more short of air, wanting to visit with her who is in the intensive care unit Vitals Vital Signs Date Time Temp Pulse Resp B/P (MAP) Pulse Ox O2 Delivery O2 Flow Rate FiO2 01/30/20 14:30 86 146/62 01/30/20 11:00 97.9 16 99 Room Air 97.9 General: Alert, No acute distress Lungs: Clear Cardiovascular: S1, S2 Abdomen: Soft Neuro Exam: Alert Extremities: No Edema Skin: Warm Labs Laboratory Tests Test 01/28/20 20:29 01/29/20 04:15 01/29/20 07:42 01/29/20 11:20 Glucose (Fingerstick) 119 mg/dL (70-99) 127 mg/dL (70-99) 122 mg/dL (70-99) Sodium Level 147 mmol/L (136-145) Potassium Level 3.7 mmol/L (3.5-5.1) Chloride Level 111 mmol/L (98-107) Carbon Dioxide Level 25 mmol/L (21-32) Anion Gap 11 (6-14) Blood Urea Nitrogen 15 mg/dL (7-20) Creatinine 1.0 mg/dL (0.6-1.0) Estimated GFR (Cockcroft-Gault) 65.2 Glucose Level 116 mg/dL (70-99) Calcium Level 8.7 mg/dL (8.5-10.1) Test 01/29/20 16:43 01/29/20 23:07 01/30/20 08:01 01/30/20 12:09 Glucose (Fingerstick) 149 mg/dL (70-99) 113 mg/dL (70-99) 125 mg/dL (70-99) 120 mg/dL (70-99) Test 01/30/20 16:49 Glucose (Fingerstick) 106 mg/dL (70-99) Laboratory Tests Test 01/29/20 23:07 01/30/20 08:01 01/30/20 12:09 01/30/20 16:49 Glucose (Fingerstick) 113 mg/dL (70-99) 125 mg/dL (70-99) 120 mg/dL (70-99) 106 mg/dL (70-99) Medications Active Scripts Medications Dose Route/Sig Max Daily Dose Days Date Category Hydrochlorothiazide Tablet (Hydrochlorothiazide) 12.5 Mg Tablet 12.5 Mg PO DAILY 03/30/14 Reported Clopidogrel (Clopidogrel Bisulfate) 75 Mg Tablet 75 Mg PO DAILY 03/30/14 Reported Enalapril Maleate 20 Mg Tablet 20 Mg PO DAILY 03/30/14 Reported Metoprolol Tartrate 100 Mg Tablet 100 Mg PO BID 03/30/14 Reported Simvastatin 40 Mg Tablet 40 Mg PO DAILY 03/30/14 Reported Clonidine Hcl 0.2 Mg Tablet 0.2 Mg PO DAILY 03/30/14 Reported Calcium 500 + D Tablet (Calcium Carbonate/Vitamin D3) 1 Each Tablet 1 Each PO 03/30/14 Reported Daily Vitamin (Multivitamin) 1 Each Tablet 1 Each PO 03/30/14 Reported Aspir 81 (Aspirin) 81 Mg Tablet.dr 81 Mg PO 03/30/14 Reported Metformin Hcl Er (Metformin Hcl) 500 Mg Tab.er.24h 500 Mg PO DAILYWBKFT 03/30/14 Reported Impression . Abnormal chest x-ray with right lower lobe pneumonia, COVID -19 + No significant tobacco history Hypokalemia HTN Acute respiratory failure, COVID pneumonia Plan . [facility] Patient to visit with her who is in the intensive care unit, she is contemplating comfort care for her . I discussed it multiple times with her I concur. Continue oral antibiotics DVT/GI PPX ANGLE HARPER MD Jan 30, 2020 16:55
[2020-01-30] MEDS: cloNIDine HCL 0.1 MG TABLET PO PRN (17:29)
[2020-01-30] MEDS: hydrALAZINE 20 MG/ML VIAL. IVP PRN (17:29)
[2020-01-30 18:30] VITALS: BP 169/76
--- NOTE | 2020-02-03 19:57 | PDOC ---
Provider Note Provider Note Discharge summary dictated.#[id number]. Hemodynamically unstable?: No Respiratory Distress?: Yes Justification for admission: COVID -19, pneumonia, CAd ,DM Serious Diagnosis?: Yes Is patient at high risk?: Yes Hemodynamically unstable?: No Is patient in severe pain?: No Is NPO status required?: No ISABELA LOPEZ MD Feb 03, 2020 19:56
--- NOTE | 2020-02-03 20:09 | DS ---
DATE OF DISCHARGE: 01/30/2020 REASON FOR ADMISSION TO THE HOSPITAL: COVID-19 positive pneumonia. CONSULTATIONS: 1. Dr. Gaona. 2. Dr. Jayy Jones. HOSPITAL COURSE: The patient is a 74-year-old female. The patient and both were sick and was admitted a couple of days ago. He was positive for COVID-19, was admitted to the hospital. Now, the patient has fever with shortness of breath. X-ray shows pneumonia. White count was elevated and the patient was admitted with a diagnosis of pneumonia. The patient had a COVID. It was positive, was treated with Zithromax and Plaquenil. The patient was on isolation and she also had IV Rocephin because her urinary antigen was positive for strep pneumonia. The patient did improve well with treatment. She also had some nausea, vomiting, elevated liver function test, which came down nicely over time. On the whole, the patient's condition improved and she was discharged to senior living unit. FINAL DIAGNOSES: 1. COVID-19 infection. 2. COVID-19 pneumonia. 3. Elevated liver function tests secondary to COVID infection in the liver. 4. Has a history of hypertension, diabetes, hyperlipidemia. DISPOSITION: To rehab unit. DISCHARGE MEDICATIONS: See MRAD for discharge medications. ISABELA LOPEZ MD DR: LATESHA/romeo JOB#: [id number] / [id number]
== END 2020-01-30 18:35 | DRG 177 ==
LOC: ER 11:44 → 6 SOUTH 15:50 → ED HOLD 15:51 → 6 SOUTH 22:00
PROVIDERS: ADMIT Internal Medicine; ATTEND Internal Medicine
DX: U07.1 COVID-19 (principal); J96.01 Acute respiratory failure with hypoxia; J12.89 Other viral pneumonia; J15.4 Pneumonia due to other streptococci; D72.810 Lymphocytopenia; E11.9 Type 2 diabetes mellitus without complications; E78.00 Pure hypercholesterolemia, unspecified; E78.5 Hyperlipidemia, unspecified; E87.6 Hypokalemia; I10 Essential (primary) hypertension; I25.10 Atherosclerotic heart disease of native coronary artery without angina pectoris; N39.3 Stress incontinence (female) (male); Z82.49 Family history of ischemic heart disease and other diseases of the circulatory system; Z90.49 Acquired absence of other specified parts of digestive tract; Z90.710 Acquired absence of both cervix and uterus; R74.0 Nonspecific elevation of levels of transaminase and lactic acid dehydrogenase [LDH]; Z79.899 Other long term (current) drug therapy
CPT/HCPCS: 36415; 71045; 80048; 80053; 80076; 82962; 83615; 83880; 85025; 86705; 86709; 86803; 87040; 87340; 87449; 87635; 87804; 93005; 96365; 96375; 99285; J0360; J0456; J0696; J1650; J2405; J3480; J3490; J7050; 97110-GP; 97530-GP; 97535-GO; G0378; J7030

== ENCOUNTER → 2020-02-19 | Outpatient (CLI) | payer MEDICARE ==
[2020-01-30 18:30] VITALS: BP 169/76
[~2020-02-19] MED LIST changes: +CEFD300C PO; +HYDR-2869 PO
--- NOTE | 2020-02-19 16:24 | RAD ---
CHEST PA LATERAL History: History of pneumonia. Comparison: AP chest 01/26/2020. Findings: The cardiomediastinal silhouette is normal. Pulmonary vasculature is normal. The lungs are clear. Bilateral airspace opacities noted on the prior study have resolved. No pleural effusion or pneumothorax is seen. ACDF hardware. Degenerative arthropathy of the left shoulder. IMPRESSION: No acute cardiopulmonary process. Electronically signed by: Angel Noonan MD (02/19/2020 4:21 PM) [id number]
== END | disposition home or self-care (01) ==
LOC: RAD 14:32
PROVIDERS: ATTEND Physician Assistant Medical
DX: U07.1 COVID-19 (principal); M12.812 Other specific arthropathies, not elsewhere classified, left shoulder; Z87.01 Personal history of pneumonia (recurrent)
CPT/HCPCS: 71046

== ENCOUNTER → 2021-03-23 | Outpatient (CLI) | payer MEDICARE ==
[~2021-03-23] MED LIST changes: -ENAL20TA PO; +ENAL20TA10 PO; +METF-658 PO; -METF500T11 PO
--- NOTE | 2021-03-23 15:36 | CARD ---
MR#: [id number] Date of Study: 03/23/2021 Ordering Physician: LISA PRYOR, Referring Physician: LISA PRYOR, Tech: CHINYERE ABBASI [facility] APPROVED REPORT EXAM: Two-dimensional and M-mode echocardiogram with Doppler and color Doppler. Other Information Quality : AverageHR: 54bpm Rhythm : NSR INDICATION Cardiac Disease: CAD RISK FACTORS Hypertension 2D DIMENSIONS RVDd3.5 (2.9-3.5cm)Left Atrium(2D)3.8 (1.6-4.0cm) IVSd1.1 (0.7-1.1cm)Aortic Root(2D)2.5 (2.0-3.7cm) LVDd3.4 (3.9-5.9cm)LVOT Diameter1.8 (1.8-2.4cm) PWd1.4 (0.7-1.1cm)LVDs2.2 (2.5-4.0cm) FS (%) 37.0 %SV32.7 ml LVEF(%)68.0 (>50%) Aortic Valve AoV Peak Jason.117.9cm/Loretta Peak GR.8.2mmHg LVOT Peak Jason.114.8cm/sAVA (VMAX)2.19cm2 Pulmonary Valve PV Peak Pytkonhk88.3cm/s Tricuspid Valve TR P. Uvhksqmu802al/sRAP [id number] TR Peak Gr.31utWmPIHB88kxTw Pulmonary Vein S1 Jbaduvpr39.4cm/sD2 Cvgjoppd93.1cm/s LEFT VENTRICLE The left ventricle is normal size. There is borderline concentric left ventricular hypertrophy. Left ventricular systolic function is normal. The left ventricular ejection fraction is 55-60%. No regiona l wall motion abnormalities noted. Tissue Doppler imaging reveals abnormal left ventricular diastolic dysfunction. No left ventricle thrombus noted on this study. There is no ventricular septal defect v isualized. There is no left ventricular aneurysm. There is no mass noted in the left ventricle. RIGHT VENTRICLE The right ventricle is normal size. There is normal right ventricular wall thickness. The right ventr icular systolic function is normal. ATRIA The left atrium size is normal. The right atrium size is normal. The interatrial septum is intact wit h no evidence for an atrial septal defect or patent foramen ovale as noted on 2-D or Doppler imaging. AORTIC VALVE The aortic valve is normal in structure and function. No aortic regurgitation is present. There is no aortic valvular stenosis. There is no aortic valvular vegetation. MITRAL VALVE The mitral valve is normal in structure and function. There is no mitral valve stenosis. Doppler and Color-flow revealed trace mitral regurgitation. TRICUSPID VALVE The tricuspid valve is normal in structure and function. Doppler and Color Flow revealed mild tricusp id regurgitation. PAP 32 mmHg There is no tricuspid valve prolapse or vegetation. There is no tricusp id valve stenosis. PULMONIC VALVE The pulmonic valve is not well visualized. There is no pulmonic valvular regurgitation. There is no p ulmonic valvular stenosis. GREAT VESSELS The aortic root is normal in size. The ascending aorta is normal in size. The pulmonary artery is nor mal. The IVC is normal in size and collapses >50% with inspiration. PERICARDIAL EFFUSION There is no pleural effusion. The pericardium appears normal. Critical Notification Critical Value: No <Conclusion> The left ventricle is normal size. Left ventricular systolic function is normal. The left ventricular ejection fraction is 55-60%. There is borderline concentric left ventricular hypertrophy. No aortic regurgitation is present. There is no aortic valvular stenosis. Doppler and Color-flow revealed trace mitral regurgitation. Doppler and Color Flow revealed mild tricuspid regurgitation. PAP 32 mmHg Signed by : Charles Hoang MD Electronically Approved : 03/23/2021 15:36:14
--- NOTE | 2021-03-23 15:44 | RAD ---
EXAM: Carotid Doppler sonogram. HISTORY: Transient ischemic attack. Atherosclerosis. TECHNIQUE: Adamson scale and color Doppler sonographic evaluation of the neck with spectral waveform shilpa lysis was performed and static images are submitted for review. FINDINGS: There is severe atherosclerotic plaque involving the right internal carotid artery and mild atherosclerotic plaque involving the left internal carotid artery, bilateral external carotid arteri es and right common carotid artery. The peak systolic velocity within the right common carotid artery is 91 cm/sec. The peak systolic hanna ocity within the right internal carotid artery is 280 cm/sec and the end diastolic velocity within th e right internal carotid artery is 73 cm/sec. The right ICA/CCA ratio is 3.1. The peak systolic velocity within the left common carotid artery is 141 cm/sec. The peak systolic hanna ocity within the left internal carotid artery is 109 cm/sec and the end diastolic velocity within the left internal carotid artery is 31 cm/sec. The left ICA/CCA ratio is 0.77. There is normal antegrade flow within both vertebral arteries. IMPRESSION: 1. Doppler findings consistent with greater than 70 percent stenosis involving the right ICA. There i s severe atherosclerotic plaque within the right ICA. 2. Doppler findings with less than 50 percent stenosis involving the left ICA. There is mild atherosc lerotic plaque involving the left ICA. PQRS Compliance Statement - Stenosis calculations for CT, MR and conventional angiography are based u ciro measurement of the distal ICA diameter in accordance with the NASCET methodology. Stenosis calcu lations for carotid ultrasound studies are derived from validated velocity criteria which are known t o correlate with the NASCET methodology. Electronically signed by: Essie Timmons MD (03/23/2021 3:41 PM) [id number]
--- NOTE | 2021-03-23 17:13 | RAD ---
US DPLX ARTR EXTREM LOWER BILAT, US DPLX ARTR EXTREM LOWER BILAT Indication: Reason: PAD / Spl. Instructions: / History: Comparison: None. Procedure: Arterial pressures are measured in the arms and ankles. Real-time grayscale, color flow D oppler, and Doppler spectral waveform analysis of the arterial system of the lower extremity is perfo rmed. Findings: Right arm: 192 mm Hg. Right ankle: 204 mm Hg. Right leg KEN: 1.06. Left arm: 179 mm Hg. Left ankle: 186 mm Hg. Left leg KEN: 0.97. Findings: Right lower extremity: Moderate atheromatous plaque. Triphasic or biphasic waveforms throughout the r ight lower extremity. Left lower extremity: Moderate atheromatous plaque. Increased velocity within the left proximal super ficial femoral artery measures 268 cm/s. Significantly elevated velocity within the left posterior ti bial artery measures 359 cm/s. Reversal flow within the left dorsalis pedis artery. IMPRESSION: 1. Moderate bilateral atheromatous plaque. 2. Moderately elevated velocity within the LEFT proximal superficial femoral artery and posterior ti bial artery, may indicate 50-[address] angiogram can further assess as clinically warra nted. 3. Reversal flow within the left dorsalis pedis artery. 4. Normal bilateral ankle brachial indices. Electronically signed by: Ralph Todd DO (03/23/2021 5:11 PM) [facility]
== END ==
LOC: ECHO 12:29
PROVIDERS: ATTEND Internal Medicine Cardiovascular Disease
DX: I07.1 Rheumatic tricuspid insufficiency (principal); I65.23 Occlusion and stenosis of bilateral carotid arteries; I25.10 Atherosclerotic heart disease of native coronary artery without angina pectoris; I70.203 Unspecified atherosclerosis of native arteries of extremities, bilateral legs
CPT/HCPCS: 93306; 93880; 93922; 93925

== ENCOUNTER → 2021-03-28 | Outpatient (CLI) | payer MEDICARE ==
[~2021-03-28] MED LIST changes: +REGADENOSON 0.4 MG/5 ML DISP.SYRIN. IV ONE
--- NOTE | 2021-03-28 12:32 | RAD ---
MR#: [id number] Date of Study: 03/28/2021 Ordering Physician: LISA PRYOR, Referring Physician: ALYSHA ESPINO Tech: RT Ronnell Martel) (N) APPROVED REPORT Test Type: Pharmacological Stress Nurse/Tech: Kanu Busby RN Test Indications: CAD Cardiac History: HTN, CAD, See EMR. Medications: See EMR. Medical History: DM, TIA, See EMR. Resting ECG: SR Resting Heart Rate: 51 bpm Resting Blood Pressure: 173/76mmHg Pretest Chest Pain: No chest pain Nurse/Tech Notes Lungs CTA, Heart tones regular. Consent: The procedure was explained to the patient in lay terms. Informed consent was witnessed. Juan eout was entered into [employer]. History and Stress Test performed by RT Ronnell Martel) (N) Pharm. Details Pharmacologic stress testing was performed using 0.4mg per 5ml of regadenoson given intravenously ove r 7-10 seconds. Stress Symptoms No chest pain or symptoms. POST EXERCISE Reason for Termination: Infusion complete Max HR: 81 bpm Max Blood Pressure: 186/75mmHg Blood Pressure response to exercise: Normal blood pressure response during stress. Heart Rate response to exercise: WNL Chest Pain: No. Arrhythmia: Yes. PVCs ST Change: No. No changes from baseline EKG. INTERPRETATION Stress EKG Conclusion: Baseline EKG showed sinus rhythm with inferolateral T wave inversions. No-de gnostic changes at peak stress. Few PVC's without any significant arrhythmias. Imaging Protocol IMAGE PROTOCOL: Rest Tc-99m/stress Tc-99m 1 day Rest: Stress: Viability: Radiopharm.Tc99m [id number] Sestamibi Dose10.3mCi 32.5mCi Duration 13min. 13min. Img Date 03/28/2021 03/28/2021 Inj-Img [id number]. 60min. Rest Admin Site:IV - Right AntecubitalAdministrator:RT Delonte (Laurence)(N) Stress Admin Site: IV - Right AntecubitalAdministrator: RT Delonte (Laurence)(N) STRESS DATA End Diast. Vol.77.0mlLVEDV index BSA40.0ml End Syst. Vol.22.0mlLVESV index BSA11.0ml Myocardial Uaik879.0gEject. Kakrmiwt60.0% Stress Scores Regional WT2.00Summed WT31.00 Regional WM0.00Summed WM5.00 Study quality was good. Left Ventricular size was Normal at Rest and Stress. Lung uptake was . Left Ventricular ejection fraction is 70%. The rest and stress images show normal perfusion, normal contraction and thickening. LV Perf. Quant 17 Seg. SSS0.00 17 Seg. SRS3.00 17 Seg. SDS0.00 Stress Defect Extent (% LAD)0.00Rest Defect Extent (% LAD)0.00Rev. Defect Extent (% LAD)0.00 Stress Defect Extent (% LCX) 0.00Rest Defect Extent (% LCX)27.50Rev. Defect Extent (% LCX)0.00 Stress Defect Extent (% RCA)0.00Rest Defect Extent (% RCA)0.00Rev. Defect Extent (% RCA)0.00 Stress Defect Extent (% BRITTANI)0.00Rest Defect Extent (% BRITTANI)4.80Rev. Defect Extent (% BRITTANI)0.00 Conclusion 1. Regadenoson cardioisotope stress test did not show any evidence of ischemia or infarct. 2. Normal left ventricular systolic function with ejection fraction calculated at 70%. 3. Low risk for cardiac events. Signed by : James Carroll, Electronically Approved : 03/28/2021 12:32:06
== END ==
LOC: NM 15:00
PROVIDERS: ATTEND Internal Medicine Cardiovascular Disease
DX: I25.10 Atherosclerotic heart disease of native coronary artery without angina pectoris (principal); I10 Essential (primary) hypertension
CPT/HCPCS: 78452; 93017; A9500; J2785

== ENCOUNTER → 2021-08-12 | Outpatient (CLI) | payer MEDICARE ==
[~2021-08-12] MED LIST changes: +CONTRAST GIVEN. MC PRN; +IOHEXOL 300 MG/ML 100ML VIAL. IV ONE; +IOHEXOL 350 MG/ML 100 ML VIAL. IV ONE; -REGADENOSON 0.4 MG/5 ML DISP.SYRIN. IV ONE
[2021-08-12 09:02] LABS: CREATININE 1.1 mg/dL (0.6-1.0); GFR 58.1
--- NOTE | 2021-08-12 12:45 | RAD ---
STUDY: CT angiography of the neck INDICATION: Carotid stenosis, nonstenotic COMPARISON: Carotid ultrasound 03/23/2021 TECHNIQUE: Axial CT imaging of the neck utilizing angiography protocol and performed after the intrav enous administration of 75 mL Omnipaque 300 contrast. Multiplanar reformats and 3D MIP acquisitions w ere obtained. Encountered areas of stenosis are measured per NASCET criteria. One or more of the following individualized dose reduction techniques were utilized for this examinat ion: 1. Automated exposure control 2. Adjustment of the mA and/or kV according to patient size 3. Use of iterative reconstruction technique. FINDINGS: CTA NECK: Arch/Proximal Great Vessels: The visualized portion of the arch is normal in caliber. There is a bovi ne configuration of the arch. Great vessel origins are widely patent. Carotid Bifurcation/Cervical ICA: Common carotid arteries are patent. There is 70 percent narrowing o f the proximal right internal carotid artery over a 1.3 cm length due to atheromatous plaque. There i s focal 40 percent narrowing of the right external carotid artery origin. There is about 20 percent narrowing of the proximal left internal carotid artery due to atheromatous plaque. Beyond this the internal carotid arteries are normal in caliber and patent. There is a retrop haryngeal course of the right internal carotid artery. Left external carotid artery origin is patent. Vertebral Arteries: There may be mild narrowing of the right vertebral artery origin, evaluation limi james by artifact. Vertebral arteries are otherwise normal in caliber and patent. Other: The intracranial internal carotid arteries, middle cerebral arteries and anterior cerebral art eries are patent. The posterior cerebral arteries, basilar artery, superior cerebellar arteries, and intradural vertebral arteries are patent. Jugular veins are patent. MISCELLANEOUS: 3 mm nodule in the right upper lobe. There are surgical changes of anterior cervical fusion at C5-C7. Moderate degenerative disc disease at C4-C5 and C7-T1 IMPRESSION: 1. 70 percent narrowing of the proximal right internal carotid artery over a 1.3 cm length. 40 percen t narrowing of the right external artery origin. 2. 20 percent narrowing of the proximal left internal carotid artery. 3. 3 mm nodule in the right upper lobe. If the patient is at high risk for lung cancer a twelve-month follow-up CT could be obtained. In a low risk patient, no follow-up is indicated. Electronically signed by: Sidra Atwood MD (08/12/2021 12:43 PM) [facility]
== END ==
LOC: CT 08:29
PROVIDERS: ATTEND Surgery Vascular Surgery
DX: I65.23 Occlusion and stenosis of bilateral carotid arteries (principal); M50.33 Other cervical disc degeneration, cervicothoracic region
CPT/HCPCS: 36415; 70498; 82565; 84520; Q9967